=== PATIENT | female | born 1995 | race Hispanic/Latino ===

== ENCOUNTER 2023-05-24 00:21 | Emergency (ER) | payer OTHER, SELFPAY ==
--- OUTSIDE RECORDS SUMMARY | 2023-05-24 00:34 | XMS REPORT | Continuity of Care Document ---
:1995 Author Organization [facility] Address [address] [place] [address] Care Team Providers Name Role Phone MART MCCOLLUM Primary Care Physician Unavailable Miguel Nina Attending Clinician Unavailable MART MCCOLLUM Attending Clinician Unavailable Mart Mccollum MD Attending Clinician KITTY WANG Attending Clinician Unavailable Kitty Wang PA-C Attending Clinician 2, [facility] Attending Clinician Unavailable Martha Johnson MD Attending Clinician Unknown, Attending Attending Clinician Unavailable MARTHA JOHNSON Attending Clinician Unavailable Doctor Unassigned, [place] Attending Clinician Unavailable Torri Sterling RN Attending Clinician Unavailable RUTHY SURESH Attending Clinician Unavailable Ebrahim ELECTRONIC SYSTEMS TECHNICIAN, Rania Attending Clinician Provider, Julio [facility] Attending Clinician Unavailable MINA ROGEL Attending Clinician Unavailable Mina Rogel MD Attending Clinician PELON PRINCE Attending Clinician Unavailable PELON PRINCE Attending Clinician Unavailable Anerisa ELECTRONIC SYSTEMS TECHNICIAN, Marck Attending Clinician MARCK KAUFMAN Attending Clinician Unavailable Only, [facility] Pob2 Test Attending Clinician Unavailable Samantha Tidwell MD Attending Clinician SAMANTHA TIDWELL Attending Clinician Unavailable Buster Mera DO Attending Clinician BUSTER MERA Attending Clinician Unavailable MALIHA REECE Attending Clinician Unavailable Maliha Reece MD Attending Clinician UNKNOWN, ATTENDING Attending Clinician Unavailable Care, [place] [facility] Attending Clinician Unavailable HORTENCIA VILLAVICENCIO Attending Clinician Unavailable Chandni Sebastian MD Attending Clinician CHANDNI SEBASTIAN Attending Clinician Unavailable Brandon Lovett MD Attending Clinician BRANDON LOVETT Attending Clinician Unavailable KANIKA DEGROOT Attending Clinician Unavailable Kanika Degroot MD Attending Clinician JAMILA LOMBARDO Attending Clinician Unavailable Jamila Lombardo MD Attending Clinician Joseph Ortiz MD Attending Clinician KATELYN MIKE Attending Clinician Unavailable Sara Dunaway Attending Clinician [phone] SARA ROSALES Attending Clinician Unavailable Abram'JESSICA PATTEN Attending Clinician Unavailable Lab, Ang - Db Attending Clinician Unavailable Katelyn Jacob Attending Clinician Nurse, Adc Pob Immunization Attending Clinician Unavailable Fink ELECTRONIC SYSTEMS TECHNICIAN, Liliana Attending Clinician JOSEPH ORTIZ Attending Clinician Unavailable JOSEPH ORTIZ Attending Clinician Unavailable Mo Flowers MD Attending Clinician Ruthie HERNANDEZ, Thalia Nuñez Attending Clinician Traci Cook MD, Kim Attending Clinician [phone] Marylu LARIOS, Donnie Attending Clinician DONNIE SALGUERO Attending Clinician Unavailable DONNIE SALGUERO Attending Clinician Unavailable Sia Villa MD Attending Clinician Ultrasound, [facility] Attending Clinician Unavailable Ede LARIOS, Sara Hall Attending Clinician Christine Devries MD Attending Clinician Caprice LAZAR Attending Clinician Unavailable Caprice Marquez Attending Clinician Yuri Richter Attending Clinician Ambrose Graham Attending Clinician Anjel Hood Attending Clinician MALIHA REECE Admitting Clinician Unavailable DONNIE SALGUERO Admitting Clinician Unavailable SIA VILLA Admitting Clinician Unavailable Miguel Nina Admitting Clinician Unavailable BRANDON LOVETT Admitting Clinician Unavailable MARCK KAUFMAN Admitting Clinician Unavailable Maliha Reece MD Admitting Clinician Donnie Salguero MD Admitting Clinician Sia Villa MD Admitting Clinician Caprice LAZAR Admitting Clinician Unavailable Payers Payer Name Policy Type Policy Number Effective Date Expiration Date S ource MEDICAID [place] [id number] 2020 00:00:00 [facility] [id number] 2018 MEDICAID 00:00:00 Problems Condition Condition Condition Status Onset Resolution Last Treating Co mments Source Name Details Category Date Date Treatment Clinician Date Other iron Other iron Disease Active 2021-06 U nivers deficiency deficiency 2-28 it y of anemia anemia 00:00: [place] [address] Medical [place] Primary Primary Disease Active 2021-06 Univers insomnia insomnia 2-28 ity of 00:00: [place] [address] Medical Branch Attention Attention Disease Active 2021-06 Uni vers deficit deficit 2-14 [place] hyper[place] disorder disorder Branch (ADHD), (ADHD), predominan predominan tly tly inattentiv inattentiv e type e type Generalize Generalize Disease Active 2021-06 U nivers d anxiety d anxiety 2-14 ity of disorder disorder 00:00: [place] 00 Medical Branch Chronic Chronic Disease Active 2021-06 Univers fatigue fatigue 2-14 ity of 00:00: [place] 00 Medical Branch 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 2-14 [place] of depression [place] Loss of Loss of Disease Active 2021-06 Univers appetite appetite 2-14 ity of 00:00: [place] 00 Medical Branch Crying Crying Disease Active 2021-06 Univers associated associated 2-14 it y of with mood with mood 00:[place] Grief Grief Disease Active 2021-06 Univers 2-14 ity of 00:00: [place] 00 Medical Branch Acute Acute Disease Active Univers cystitis cystitis 4-27 ity of without without 00:00: [place] hematuria hematuria 00 [facility] Branch Asthma Asthma Disease Active Univers 3-28 ity of 00:00: [place] 00 Medical Branch Allergic Allergic Disease Active Unive rs rhinitis rhinitis 3-28 ity of 00:00: [place] 00 Medical Branch Attention Attention Disease Active Uni vers or or 2-28 it[place] of concentrat concentrat [place] [facility] deficit deficit Branch Anxiety Anxiety Disease Active 2020-06 Univers 2-26 ity of 00:00: [place] 00 Medical Branch Fatty Fatty Disease Active 2020-06 Univers liver liver 2-23 ity of 00:00: [place] 00 Medical Branch Dysphagia, Dysphagia, Disease Active 2020-06 U nivers oropharyng oropharyng 2-10 it y of eal phase eal phase 00:[place] Gastroesop Gastroesop Disease Active 2020-06 U nivers hageal hageal 2-10 ity of reflux reflux 00:00: [place] disease disease 00 Medical without without Branch esophagiti esophagiti s s Constipati Constipati Disease Active 2020-06 U nivers on, on, 2-10 ity of unspecifie unspecifie [place] constipati constipati Br anch on type on type BRBPR BRBPR Disease Active 2020-06 Univers (bright (bright 2-10 it[place] of red blood red [place] rectum) rectum) Branch Obesity Obesity Disease Active 2019-06 Univers (BMI (BMI 0-14 ity of 30-39.9) 30-39.9) 00:00: [place] 00 Medical Branch Dizziness Dizziness Disease Active Uni vers and and 9-23 ity of giddiness giddiness 00:[place] Vertigo Vertigo Disease Active Univers 9-23 ity of 00:00: [place] [facility] Rectal Rectal Disease Active Univers pain pain 4-05 ity of 00:00: [place] [facility] Orthostati Orthostati Disease Active U nivers c c 4-04 ity of hypotensio hypotensio [place] Migraine Migraine Disease Active 2017-06 Unive rs with aura with aura 1-12 ity of and and 00:00: [place] without without 00 Medical status status Branch migrainosu migrainosu s, not s, not intractabl intractabl e e History of History of Disease Active 2017-06 U nivers fibromyalg fibromyalg 1-12 it y of ia ia 00:00: [place] 00 Medical Branch History of History of Disease Active 2017-06 U nivers nephrotic nephrotic 1-12 ity of syndrome syndrome 00:00: [place] 00 Medical Branch VAG VAG Diagnosis Active 2017-10-27 Mem oria BLEEDING BLEEDING -11 21:40:00 l Active 00:00: Danyel 10/27/2017 00 [facility] VAGINAL VAGINAL Diagnosis Active 2016-12-29 Memoria BLEEDING BLEEDING - 08:55:00 l Active 00:00: Danyel 12/18/[address] [place] [address] History of History of Disease Active U nivers anxiety anxiety 9-12 ity of 00:00: [place] 00 Medical Branch PANIC PANIC Diagnosis Active 2009-062018-04-28 Mem oria ATTACK ATTACK - 04:58:00 l Active 00:00: Danyel 04/26/[address] [place] [address] Danyel Fibromyalg Fibromyal Problem 2018-11-13 Memoria ia perla 14:53:07 l 11/13/2018 Wilfred mckinney [facility] Fibromyalg Fibromyal Problem Active 2018-11-13 Memoria ia perla 14:53:07 l (disorder) (disorder) He rmann Active Problem 11/13/2018 [facility] History of Past Illness Condition Condition Condition Status Onset Resolution Last Treating Co mments Source Name Details Category Date Date Treatment Clinician Date Acute Acute Problem 2017-062018-11-13 2018-11-13 M emoria upper upper 06-26 14:53:07 14:53:07 l respirator respirator 06:00: He neha y y 00 infection, infection, unspecifie unspecifie d d 04/26/2018 11/13/2018 [facility] Generalize Generaliz Problem 2017-062018-11-13 2018-11-13 Memoria d anxiety ed anxiety 06-26 14:53:07 14:53:07 l disorder disorder 06:00: Wilfred mckinney 04/26/2018 00 11/13/2018 [facility] Other Other Problem 2017-062018-11-13 2018-11-13 M emoria chest pain chest pain 06-26 14:53:07 14:53:07 l 06:00: Wilfred mckinney 8 00 11/13/2018 [facility] Abnormal Abnormal Problem 2017-10-30 2017-10-30 Memoria uterine uterine - 15:36:51 15:36:51 l and and 05:00: [place] vaginal vaginal 00 bleeding, bleeding, unspecifie unspecifie d d 10/27/2017 10/30/2017 [facility] Other Other Problem 2016-12-21 2016-12-21 M emoria specified specified 12-18 00:42:13 00:42:13 l abnormal abnormal 05:00: Wilfred n uterine uterine 00 and and vaginal vaginal bleeding bleeding 12/18/2016 7 [facility] Pelvic and Pelvic Problem 2016-12-21 2016-12-21 Memoria perineal and 12-18 00:42:13 00:42:13 l pain perineal 05:00: [place] pain 00 12/18/2016 12/21/2016 [facility] Allergies, Adverse Reactions, Alerts Allergy Allergy Status Severity Reaction(s) Onset Inactive Treating Comm ents Source Name Type Date Date Clinician JULIENNE OTTO Active [place] HIVES 2022-06 [facility] 07[facility]18 [place] [facility] No Known DA Active U 2022-06 [facility] Allergie 07-17 [place] 00:[facility] No Known No Known Active Memori a Medicati Medicati l on on [place] Allergie Allergie s s NO KNOWN Drug Active Univers ALLERGIE Class ity of S [facility] Social History Social Habit Start Date Stop Date Quantity Comments Source ASSERTION [facility] Sexual orientation [facility] Alcohol Comment 2022-11-30 2022-11-30 social Universit y of 00:00:00 00:00:00 [facility] Branch Exposure to 2022-08-04 2022-08-14 Not sure [facility] SARS-CoV-2 (event) 00:00:00 10:48:00 [facility] History of Social 2022-06-01 2022-06-01 Univers ity of function 00:00:00 00:00:00 [place] [facility] History SDOH 2020-04-17 2020-04-17 5 University o f Financial 00:00:00 00:00:00 [place] [facility] History SDOH Food 2020-04-17 2020-04-17 1 Univers ity of Worry 00:00:00 00:00:00 [place] [facility] History SDOH Food 2020-04-17 2020-04-17 1 Univers ity of Scarcity 00:00:00 00:00:00 [place] [facility] History SDOH 2020-04-17 2020-04-17 2 University o f Transport Med 00:00:00 00:00:00 [place] [facility] History SDOH 2020-04-17 2020-04-17 2 University o f Transport Non-Med 00:00:00 00:00:00 [facility] edical Branch Alcohol intake 2020-01-24 2020-01-24 0 /d University of 00:00:00 00:00:00 [facility] Tobacco use and 2019-12-03 2019-12-03 Smokeless Universit y of exposure 00:00:00 00:00:00 tobacco non-user [facility] [place] dical Branch Sex [birth year] At [birth year] Y[address] [place] 00:00:00 00:00:00 [facility] Smoking Status Start Date Stop Date Source Social History [facility] [place] [facility] Medications Ordered Filled Start Stop Current Ordering Indication Dosage Frequency Signature Comments Components Source Medication Medication Date Date Medication? Clinician (SIG) Name Name metroNIDAZO Yes [id number] 500mg Take 1 Univers LE 500 mg 6-26 tablet by ity o f tablet 00:00: mouth [place] 00 every 12 Medical (twelve) Branch hours. metroNIDAZO Yes [id number] 500mg Take 1 Univers LE 500 mg 6-26 tablet by ity o f tablet 00:00: mouth [place] 00 every 12 Medical (twelve) Branch hours. doxepin 10 Yes [id number] 10mg Take 1 Un norma mg capsule 4-24 capsule by ity of 00:00: mouth at [place] [address] bedtime. Medical Branch doxepin 10 0 Yes [id number] 10mg Take 1 Un norma mg capsule 4-24 capsule by ity of 00:00: mouth at [place] [address] bedtime. Medical Branch doxepin 10 0 Yes [id number] 10mg Take 1 Un norma mg capsule 4-24 capsule by ity of 00:00: mouth at [place] [address] bedtime. Medical Branch doxepin 10 0 Yes [id number] 10mg Take 1 Un norma mg capsule 4-24 capsule by ity of 00:00: mouth at [place] [address] bedtime. Medical Branch doxepin 10 0 Yes [id number] 10mg Take 1 Un norma mg capsule 4-24 capsule by ity of 00:00: mouth at [place] [address] bedtime. Medical Branch doxepin 10 0 Yes [id number] 10mg Take 1 Un norma mg capsule 4-24 capsule by ity of 00:00: mouth at [place] [address] bedtime. Medical Branch doxepin 10 0 Yes [id number] 10mg Take 1 Un norma mg capsule 3-12 capsule by ity of 00:00: mouth at [place] [address] bedtime. Medical Branch doxepin 10 0 2022- No [id number] 10mg Take 1 U nivers mg capsule 3-12 04-21 capsule by it y of 00:00: 00:00 mouth at [place] 00 :00 bedtime. Medical Branch benzonatate 2023-0 Yes [id number] 200mg Take 2 Univers 100 mg 2-26 capsules ity of capsule 00:00: by mouth [place] 00 every 8 Medical (eight) Branch hours as needed for Cough. maalox/diph 2022-0 Yes [id number] 5mL Take 5 mL Univers enhydrAMINE 2-26 by mouth 3 it y of :lidocaine2 00:00: (three) [place] as % viscous 00 times Medical 1:1:1 Susp daily as Branc h suspension needed (gargle and spit). ibuprofen 2022-0 Yes [id number] 600mg Take 1 Univers 600 mg 2-26 tablet by ity of tablet 00:00: mouth [place] 00 every 6 Medical (six) Branch hours as needed for Pain (scale 4-6) or Pain (scale 1-3). benzonatate 2022-0 Yes [id number] 200mg Take 2 Univers 100 mg 2-26 capsules ity of capsule 00:00: by mouth [place] 00 every 8 Medical (eight) Branch hours as needed for Cough. maalox/diph 2022-0 Yes [id number] 5mL Take 5 mL Univers enhydrAMINE 2-26 by mouth 3 it y of :lidocaine2 00:00: (three) [place] as % viscous 00 times Medical 1:1:1 Susp daily as Branc h suspension needed (gargle and spit). ibuprofen 2022-0 Yes [id number] 600mg Take 1 Univers 600 mg 2-26 tablet by ity of tablet 00:00: mouth [place] 00 every 6 Medical (six) Branch hours as needed for Pain (scale 4-6) or Pain (scale 1-3). benzonatate 2022-0 Yes [id number] 200mg Take 2 Univers 100 mg 2-26 capsules ity of capsule 00:00: by mouth [place] 00 every 8 Medical (eight) Branch hours as needed for Cough. maalox/diph 2023-0 Yes [id number] 5mL Take 5 mL Univers enhydrAMINE 2-26 by mouth 3 it y of :lidocaine2 00:00: (three) [place] as % viscous 00 times Medical 1:1:1 Susp daily as Branc h suspension needed (gargle and spit). ibuprofen 2022-0 Yes [id number] 600mg Take 1 Univers 600 mg 2-26 tablet by ity of tablet 00:00: mouth [place] 00 every 6 Medical (six) Branch hours as needed for Pain (scale 4-6) or Pain (scale 1-3). benzonatate 2023-0 Yes [id number] 200mg Take 2 Univers 100 mg 2-26 capsules ity of capsule 00:00: by mouth [place] 00 every 8 Medical (eight) Branch hours as needed for Cough. maalox/diph 2023-0 Yes [id number] 5mL Take 5 mL Univers enhydrAMINE 2-26 by mouth 3 it y of :lidocaine2 00:00: (three) [place] as % viscous 00 times Medical 1:1:1 Susp daily as Branc h suspension needed (gargle and spit). ibuprofen 2023-0 Yes [id number] 600mg Take 1 Univers 600 mg 2-26 tablet by ity of tablet 00:00: mouth [place] 00 every 6 Medical (six) Branch hours as needed for Pain (scale 4-6) or Pain (scale 1-3). benzonatate 2023-0 Yes [id number] 200mg Take 2 Univers 100 mg 2-26 capsules ity of capsule 00:00: by mouth [place] 00 every 8 Medical (eight) Branch hours as needed for Cough. maalox/diph 2023-0 Yes [id number] 5mL Take 5 mL Univers enhydrAMINE 2-26 by mouth 3 it y of :lidocaine2 00:00: (three) [place] as % viscous 00 times Medical 1:1:1 Susp daily as Branc h suspension needed (gargle and spit). ibuprofen 2023-0 Yes [id number] 600mg Take 1 Univers 600 mg 2-26 tablet by ity of tablet 00:00: mouth [place] 00 every 6 Medical (six) Branch hours as needed for Pain (scale 4-6) or Pain (scale 1-3). benzonatate 2023-0 Yes [id number] 200mg Take 2 Univers 100 mg 2-26 capsules ity of capsule 00:00: by mouth [place] 00 every 8 Medical (eight) Branch hours as needed for Cough. maalox/diph 2023-0 Yes [id number] 5mL Take 5 mL Univers enhydrAMINE 2-26 by mouth 3 it y of :lidocaine2 00:00: (three) [place] as % viscous 00 times Medical 1:1:1 Susp daily as Branc h suspension needed (gargle and spit). ibuprofen 2023-0 Yes [id number] 600mg Take 1 Univers 600 mg 2-26 tablet by ity of tablet 00:00: mouth [place] 00 every 6 Medical (six) Branch hours as needed for Pain (scale 4-6) or Pain (scale 1-3). benzonatate 0 Yes [id number] 200mg Take 2 Univers 100 mg 2-26 capsules ity of capsule 00:00: by mouth [place] 00 every 8 Medical (eight) Branch hours as needed for Cough. maalox/diph 2022-0 Yes [id number] 5mL Take 5 mL Univers enhydrAMINE 2-26 by mouth 3 it y of :lidocaine2 00:00: (three) [place] as % viscous 00 times Medical 1:1:1 Susp daily as Branc h suspension needed (gargle and spit). ibuprofen 0 Yes [id number] 600mg Take 1 Univers 600 mg 2-26 tablet by ity of tablet 00:00: mouth [place] 00 every 6 Medical (six) Branch hours as needed for Pain (scale 4-6) or Pain (scale 1-3). benzonatate 0 Yes [id number] 200mg Take 2 Univers 100 mg 2-26 capsules ity of capsule 00:00: by mouth [place] 00 every 8 Medical (eight) Branch hours as needed for Cough. maalox/diph 0 Yes [id number] 5mL Take 5 mL Univers enhydrAMINE 2-26 by mouth 3 it y of :lidocaine2 00:00: (three) [place] as % viscous 00 times Medical 1:1:1 Susp daily as Branc h suspension needed (gargle and spit). ibuprofen 0 Yes [id number] 600mg Take 1 Univers 600 mg 2-26 tablet by ity of tablet 00:00: mouth [place] 00 every 6 Medical (six) Branch hours as needed for Pain (scale 4-6) or Pain (scale 1-3). levalbutero 2021-06 Yes [id number] 1{puff} Inhale 1-2 Univers l (XOPENEX 2-28 Puffs ity of HFA) 45 00:00: every 4 [place] mcg/actuati 00 (four) Medica l on inhaler hours as Branc h needed for Wheezing or Shortness of Breath. Ferrous 2021-06 Yes [id number] 1{tbl} Take 1 Un norma Fumarate 2-28 tablet by ity of 324 mg (106 00:00: mouth 2 [place] as mg iron) 00 (two) Medical Tab times Branch daily with meals. doxepin 10 2021-06 Yes [id number] 10mg Take 1 Un norma mg capsule 2-28 capsule by ity of 00:00: mouth at [place] [address] bedtime. Medical Branch buPROPion 2021-06 Yes [id number] 75mg Take 1 U nivers 75 mg 2-28 tablet by ity of tablet 00:00: mouth in [place] 00 the Medical morning Branch and 1 tablet in the evening. montelukast 2021-06 Yes [id number] 10mg Take 1 Univers 10 mg 2-28 tablet by ity of tablet 00:00: mouth at [place] [address] bedtime. Medical Branch levalbutero 2021-06 Yes [id number] 1{puff} Inhale 1-2 Univers l (XOPENEX 2-28 Puffs ity of HFA) 45 00:00: every 4 [place] mcg/actuati 00 (four) Medica l on inhaler hours as Branc h needed for Wheezing or Shortness of Breath. Ferrous 2021-06 Yes [id number] 1{tbl} Take 1 Un norma Fumarate 2-28 tablet by ity of 324 mg (106 00:00: mouth 2 [place] as mg iron) 00 (two) Medical Tab times Branch daily with meals. doxepin 10 2021-06 Yes [id number] 10mg Take 1 Un norma mg capsule 2-28 capsule by ity of 00:00: mouth at [place] [address] bedtime. Medical Branch buPROPion 2021-06 Yes [id number] 75mg Take 1 U nivers 75 mg 2-28 tablet by ity of tablet 00:00: mouth in [place] 00 the Medical morning Branch and 1 tablet in the evening. montelukast 2021-06 Yes [id number] 10mg Take 1 Univers 10 mg 2-28 tablet by ity of tablet 00:00: mouth at [place] 00 bedtime. Medical Branch levalbutero 2021-06 Yes [id number] 1{puff} Inhale 1-2 Univers l (XOPENEX 2-28 Puffs ity of HFA) 45 00:00: every 4 [place] mcg/actuati 00 (four) Medica l on inhaler hours as Branc h needed for Wheezing or Shortness of Breath. Ferrous 2021-06 Yes [id number] 1{tbl} Take 1 Un norma Fumarate 2-28 tablet by ity of 324 mg (106 00:00: mouth 2 [place] as mg iron) 00 (two) Medical Tab times Branch daily with meals. doxepin 10 2021-06 Yes [id number] 10mg Take 1 Un norma mg capsule 2-28 capsule by ity of 00:00: mouth at [place] 00 bedtime. Medical Branch buPROPion 2021-06 Yes [id number] 75mg Take 1 U nivers 75 mg 2-28 tablet by ity of tablet 00:00: mouth in [place] 00 the Medical morning Branch and 1 tablet in the evening. montelukast 2021-06 Yes [id number] 10mg Take 1 Univers 10 mg 2-28 tablet by ity of tablet 00:00: mouth at [place] 00 bedtime. Medical Branch levalbutero 2021-06 Yes [id number] 1{puff} Inhale 1-2 Univers l (XOPENEX 2-28 Puffs ity of HFA) 45 00:00: every 4 [place] mcg/actuati 00 (four) Medica l on inhaler hours as Branc h needed for Wheezing or Shortness of Breath. Ferrous 2021-06 Yes [id number] 1{tbl} Take 1 Un norma Fumarate 2-28 tablet by ity of 324 mg (106 00:00: mouth 2 [place] as mg iron) 00 (two) Medical Tab times Branch daily with meals. doxepin 10 2021-06 Yes [id number] 10mg Take 1 Un norma mg capsule 2-28 capsule by ity of 00:00: mouth at [place] 00 bedtime. Medical Branch buPROPion 2021-06 Yes [id number] 75mg Take 1 U nivers 75 mg 2-28 tablet by ity of tablet 00:00: mouth in [place] 00 the Medical morning Branch and 1 tablet in the evening. montelukast 2021-06 Yes [id number] 10mg Take 1 Univers 10 mg 2-28 tablet by ity of tablet 00:00: mouth at [place] 00 bedtime. Medical Branch levalbutero 2021-06 Yes [id number] 1{puff} Inhale 1-2 Univers l (XOPENEX 2-28 Puffs ity of HFA) 45 00:00: every 4 [place] mcg/actuati 00 (four) Medica l on inhaler hours as Branc h needed for Wheezing or Shortness of Breath. Ferrous 2021-06 Yes [id number] 1{tbl} Take 1 Un norma Fumarate 2-28 tablet by ity of 324 mg (106 00:00: mouth 2 [place] as mg iron) 00 (two) Medical Tab times Branch daily with meals. doxepin 10 2021-06 Yes [id number] 10mg Take 1 Un norma mg capsule 2-28 capsule by ity of 00:00: mouth at [place] [address] bedtime. Medical Branch buPROPion 2021-06 Yes [id number] 75mg Take 1 U nivers 75 mg 2-28 tablet by ity of tablet 00:00: mouth in [place] 00 the Medical morning Branch and 1 tablet in the evening. montelukast 2021-06 Yes [id number] 10mg Take 1 Univers 10 mg 2-28 tablet by ity of tablet 00:00: mouth at [place] 00 bedtime. Medical Branch levalbutero 2021-06 Yes [id number] 1{puff} Inhale 1-2 Univers l (XOPENEX 2-28 Puffs ity of HFA) 45 00:00: every 4 [place] mcg/actuati 00 (four) Medica l on inhaler hours as Branc h needed for Wheezing or Shortness of Breath. Ferrous 2021-06 Yes [id number] 1{tbl} Take 1 Un norma Fumarate 2-28 tablet by ity of 324 mg (106 00:00: mouth 2 [place] as mg iron) 00 (two) Medical Tab times Branch daily with meals. doxepin 10 2021-06 Yes [id number] 10mg Take 1 Un norma mg capsule 2-28 capsule by ity of 00:00: mouth at [place] [address] bedtime. Medical Branch buPROPion 2021-06 Yes [id number] 75mg Take 1 U nivers 75 mg 2-28 tablet by ity of tablet 00:00: mouth in [place] 00 the Medical morning Branch and 1 tablet in the evening. montelukast 2021-06 Yes [id number] 10mg Take 1 Univers 10 mg 2-28 tablet by ity of tablet 00:00: mouth at [place] 00 bedtime. Medical Branch levalbutero 2021-06 Yes [id number] 1{puff} Inhale 1-2 Univers l (XOPENEX 2-28 Puffs ity of HFA) 45 00:00: every 4 [place] mcg/actuati 00 (four) Medica l on inhaler hours as Branc h needed for Wheezing or Shortness of Breath. Ferrous 2021-06 Yes [id number] 1{tbl} Take 1 Un norma Fumarate 2-28 tablet by ity of 324 mg (106 00:00: mouth 2 [place] mg iron) 00 (two) Medical Tab times Branch daily with meals. doxepin 10 2021-06 Yes [id number] 10mg Take 1 Un norma mg capsule 2-28 capsule by ity of 00:00: mouth at [place] 00 bedtime. Medical Branch buPROPion 2021-06 Yes [id number] 75mg Take 1 U nivers 75 mg 2-28 tablet by ity of tablet 00:00: mouth in [place] 00 the Medical morning Branch and 1 tablet in the evening. montelukast 2021-06 Yes [id number] 10mg Take 1 [facility] 10 mg 2-28 tablet by ity of tablet 00:00: mouth at [place] [address] bedtime. Medical Branch levalbutero 2021-06 Yes [id number] 1{puff} Inhale 1-2 Univers l (XOPENEX 2-28 Puffs ity of HFA) 45 00:00: every 4 [place] mcg/actuati 00 (four) Medica l on inhaler hours as Branc h needed for Wheezing or Shortness of Breath. Ferrous 2021-06 Yes [id number] 1{tbl} Take 1 Un norma Fumarate 2-28 tablet by ity of 324 mg (106 00:00: mouth 2 [place] mg iron) 00 (two) Medical Tab times Branch daily with meals. doxepin 10 2021-06 Yes [id number] 10mg Take 1 Un norm[facility] mg capsule 2-28 capsule by ity of 00:00: mouth at [place] 00 bedtime. Medical Branch buPROPion 2021-06 Yes [id number] 75mg Take 1 U nivers 75 mg 2-28 tablet by ity of tablet 00:00: mouth in [place] 00 the Medical morning Branch and 1 tablet in the evening. montelukast 2021-06 Yes [id number] 10mg Take 1 [facility] 10 mg 2-28 tablet by ity of tablet 00:00: mouth at [place] 00 [facility]. [facility] [id number] 1{puff} Inhale 1-2 Univers l (XOPENEX 2-28 Puffs ity of HFA) 45 00:00: every 4 [place] mcg/actuati 00 (four) Medica l on inhaler hours as Branc h needed for Wheezing or Shortness of Breath. Ferrous 2021-06 Yes [id number] 1{tbl} Take 1 Un norma Fumarate 2-28 tablet by ity of 324 mg (106 00:00: mouth 2 [place] mg iron) 00 (two) Medical Tab times Branch daily with meals. buPROPion 2021-06 Yes [id number] 75mg Take 1 U nivers 75 mg 2-28 tablet by ity of tablet 00:00: mouth in [place] 00 the Medical morning Branch and 1 tablet in the evening. montelukast 2021-06 Yes [id number] 10mg Take 1 [facility] 10 mg 2-28 tablet by ity of tablet 00:00: mouth at [place] 00 bedtime. [facility]06 Yes [id number] 1{puff} Inhale 1-2 Univers l (XOPENEX 2-28 Puffs ity of HFA) 45 00:00: every 4 [place] mcg/actuati 00 (four) Medica l on inhaler hours as Branc h needed for Wheezing or Shortness of Breath. Ferrous 2021-06 Yes [id number] 1{tbl} Take 1 Un norma Fumarate 2-28 tablet by ity of 324 mg (106 00:00: mouth 2 [place] mg iron) 00 (two) Medical Tab times Branch daily with meals. buPROPion 2021-06 Yes [id number] 75mg Take 1 U nivers 75 mg 2-28 tablet by ity of tablet 00:00: mouth in [place] 00 the Medical morning Branch and 1 tablet in the evening. montelukast 2021-06 Yes [id number] 10mg Take 1 [facility] 10 mg 2-28 tablet by ity of tablet 00:00: mouth at [place] 00 bedtime. Medical Branch levwibutero 2021-06 Yes [id number] 1{puff} Inhale 1-2 Univers l (XOPENEX 2-28 Puffs ity of HFA) 45 00:00: every 4 [place] mcg/actuati 00 (four) Medica l on inhaler hours as Branc h needed for Wheezing or Shortness of Breath. Ferrous 2021-06 Yes [id number] 1{tbl} Take 1 [facility] norm[facility] Fumarate 2-28 tablet by ity of 324 mg (106 00:00: mouth 2 [place] mg iron) 00 (two) Medical Tab times Branch daily with meals. buPROPion 2021-06 Yes [id number] 75mg Take 1 U nivers 75 mg 2-28 tablet by ity of tablet 00:00: mouth in [place] 00 the Medical morning Branch and 1 tablet in the evening. montelukast 2021-06 Yes [id number] 10mg Take 1 [facility] 10 mg 2-28 tablet by ity of tablet 00:00: mouth at [place] 00 bedtime. Medical Branch levalbutero 2021-06 Yes [id number] 1{puff} Inhale 1-2 Univers l (XOPENEX 2-28 Puffs ity of HFA) 45 00:00: every 4 [place] mcg/actuati 00 (four) Medica l on inhaler hours as Branc h needed for Wheezing or Shortness of Breath. Ferrous 2021-06 Yes [id number] 1{tbl} Take 1 Un norm[facility] Fumarate 2-28 tablet by ity of 324 mg (106 00:00: mouth 2 [place] mg iron) 00 (two) Medical Tab times Branch daily with meals. buPROPion 2021-06 Yes [id number] 75mg Take 1 U nivers 75 mg 2-28 tablet by ity of tablet 00:00: mouth in [place] 00 the Medical morning Branch and 1 tablet in the evening. montelukast 2021-06 Yes [id number] 10mg Take 1 [facility] 10 mg 2-28 tablet by ity of tablet 00:00: mouth at [place] 00 bedtime. Medical Branch levalbutero 2021-06 Yes [id number] 1{puff} Inhale 1-2 Univers l (XOPENEX 2-28 Puffs ity of HFA) 45 00:00: every 4 [place] mcg/actuati 00 (four) Medica l on inhaler hours as Branc h needed for Wheezing or Shortness of Breath. Ferrous 2021-06 Yes [id number] 1{tbl} Take 1 [facility] Fumarate 2-28 tablet by ity of 324 mg (106 00:00: mouth 2 [place] mg iron) 00 (two) Medical Tab times Branch daily with meals. buPROPion 2021-06 Yes [id number] 75mg Take 1 U nivers 75 mg 2-28 tablet by ity of tablet 00:00: mouth in [place] 00 the Medical morning Branch and 1 tablet in the evening. montelukast 2021-06 Yes [id number] 10mg Take 1 [facility] 10 mg 2-28 tablet by ity of tablet 00:00: mouth at [place] 00 bedtime. Medical Branch levalbutero 2021-06 Yes [id number] 1{puff} Inhale 1-2 Univers l (XOPENEX 2-28 Puffs ity of HFA) 45 00:00: every 4 [place] mcg/actuati 00 (four) Medica l on inhaler hours as Branc h needed for Wheezing or Shortness of Breath. Ferrous 2021-06 Yes [id number] 1{tbl} Take 1 [facility] norm[facility] Fumarate 2-28 tablet by ity of 324 mg (106 00:00: mouth 2 [place] mg iron) 00 (two) Medical Tab times Branch daily with meals. buPROPion 2021-06 Yes [id number] 75mg Take 1 U nivers 75 mg 2-28 tablet by ity of tablet 00:00: mouth in [place] 00 the Medical morning Branch and 1 tablet in the evening. montelukast 2021-06 Yes [id number] 10mg Take 1 [facility] 10 mg 2-28 tablet by ity of tablet 00:00: mouth at [place] 00 bedtime. Medical Branch levalbutero 2021-06 Yes [id number] 1{puff} Inhale 1-2 Univers l (XOPENEX 2-28 Puffs ity of HFA) 45 00:00: every 4 [place] mcg/actuati 00 (four) Medica l on inhaler hours as Branc h needed for Wheezing or Shortness of Breath. Ferrous 2021-06 Yes [id number] 1{tbl} Take 1 [facility] Fumarate 2-28 tablet by ity of 324 mg (106 00:00: mouth 2 [place] mg iron) 00 (two) Medical Tab times Branch daily with meals. buPROPion 2021-06 Yes [id number] 75mg Take 1 U nivers 75 mg 2-28 tablet by ity of tablet 00:00: mouth in [place] 00 the Medical morning Branch and 1 tablet in the evening. montelukast 2021-06 Yes [id number] 10mg Take 1 [facility] 10 mg 2-28 tablet by ity of tablet 00:00: mouth at [place] [address] bedtime. Medical Branch levalbutero 2021-06 Yes [id number] 1{puff} Inhale 1-2 Univers l (XOPENEX 2-28 Puffs ity of HFA) 45 00:00: every 4 [place] mcg/actuati 00 (four) Medica l on inhaler hours as Branc h needed for Wheezing or Shortness of Breath. Ferrous 2021-06 Yes [id number] 1{tbl} Take 1 [facility] Fumarate 2-28 tablet by ity of 324 mg (106 00:00: mouth 2 [place] mg iron) 00 (two) Medical Tab times Branch daily with meals. buPROPion 2021-06 Yes [id number] 75mg Take 1 U nivers 75 mg 2-28 tablet by ity of tablet 00:00: mouth in [place] 00 the Medical morning Branch and 1 tablet in the evening. montelukast 2021-06 Yes [id number] 10mg Take 1 [facility] 10 mg 2-28 tablet by ity of tablet 00:00: mouth at [place] [address] bedtime. Medical Branch doxepin 10 2021-06- No [id number] 10mg Take 1 U nivers mg capsule 2-28 03-10 capsule by it y of 00:00: 00:00 mouth at [place] 00 :00 bedtime. Medical Branch traZODone 2021-06 Yes [id number] 50mg Take 1 Uni vers 50 mg 2-14 tablet by ity of tablet 00:00: mouth at [place] [address] bedtime. Medical Branch traZODone 2021-06 Yes [id number] 50mg Take 1 [facility] vers 50 mg 2-14 tablet by ity of tablet 00:00: mouth at [place] [address] bedtime. Medical Branch traZODone 2021-06 Yes [id number] 50mg Take 1 [facility] vers 50 mg 2-14 tablet by ity of tablet 00:00: mouth at [place] [address] bedtime. Medical Branch traZODone 2021-06 Yes [id number] 50mg Take 1 [facility] vers 50 mg 2-14 tablet by ity of tablet 00:00: mouth at [place] [address] bedtime. Medical Branch traZODone 2021-06 Yes [id number] 50mg Take 1 [facility] vers 50 mg 2-14 tablet by ity of tablet 00:00: mouth at [place] [address] bedtime. Medical Branch traZODone 2021-06 Yes [id number] 50mg Take 1 [facility] vers 50 mg 2-14 tablet by ity of tablet 00:00: mouth at [place] [address] bedtime. Medical Branch traZODone 2021-06 Yes [id number] 50mg Take 1 [facility] vers 50 mg 2-14 tablet by ity of tablet 00:00: mouth at [place] [address] bedtime. Medical Branch traZODone 2021-06 Yes [id number] 50mg Take 1 [facility] vers 50 mg 2-14 tablet by ity of tablet 00:00: mouth at [place] [address] bedtime. Medical Branch traZODone 2021-06 Yes [id number] 50mg Take 1 [facility] vers 50 mg 2-14 tablet by ity of tablet 00:00: mouth at [place] [address] bedtime. Medical Branch traZODone 2021-06 Yes [id number] 50mg Take 1 [facility] vers 50 mg 2-14 tablet by ity of tablet 00:00: mouth at [place] [address] bedtime. Medical Branch traZODone 2021-06 Yes [id number] 50mg Take 1 [facility] vers 50 mg 2-14 tablet by ity of tablet 00:00: mouth at [place] [address] bedtime. Medical Branch traZODone 2021- Yes [id number] 50mg Take 1 [facility] vers 50 mg 2-14 tablet by ity of tablet 00:00: mouth at [place] [address] bedtime. Medical Branch traZODone 2021-06 Yes [id number] 50mg Take 1 [facility] vers 50 mg 2-14 tablet by ity of tablet 00:00: mouth at [place] [address] bedtime. Medical Branch traZODone 2021-06 Yes [id number] 50mg Take 1 [facility] vers 50 mg 2-14 tablet by ity of tablet 00:00: mouth at [place] [address] bedtime. Medical Branch traZODone 2021- Yes [id number] 50mg Take 1 [facility] vers 50 mg 2-14 tablet by ity of tablet 00:00: mouth at [place] [address] bedtime. Medical Branch traZODone 2021-06 Yes [id number] 50mg Take 1 [facility] vers 50 mg 2-14 tablet by ity of tablet 00:00: mouth at [place] [address] bedtime. Medical Branch traZODone 2021-06 Yes [id number] 50mg Take 1 [facility] vers 50 mg 2-14 tablet by ity of tablet 00:00: mouth at [place] [address] bedtime. Medical Branch traZODone 2021-06 Yes [id number] 50mg Take 1 [facility] vers 50 mg 2-14 tablet by ity of tablet 00:00: mouth at [place] [address] bedtime. Medical Branch traZODone 2021-06 Yes [id number] 50mg Take 1 [facility] vers 50 mg 2-14 tablet by ity of tablet 00:00: mouth at [place] [address] bedtime. Medical Branch NaCl 0.9% 2021- No 1000mL at 999 Uni vers (NS) bolus 02-28 09-12 mL/hr, ity of infusion 21:45: 21:58 1,000 mL, [place] as 1,000 mL 00 :00 IV Medical Infusion, Branch ONCE, 1 dose, On Mon02/28/22 at 1645, STAT midazolam Yes 1mg 1 mg, IV Univ ers (VERSED) 02-28 Push, ity of injection 1 20:30: Q20MIN [place] mg 38 PRN, 2 Medical doses, Branch Starting on Mon02/28/22 at 1530, Until Discontinu ed, Routine, Anxiety, Agitation sulfamethox 2021- No [id number] 1{tbl} Take 1 [facility] azole-trime - 05-01 tablet by it y of thoprim 00:00: 04:59 mouth 2 [place] (BACTRIM 00 :00 (two) Medical DS) 800-160 times Branch mg per daily for tablet 3 days. phenazopyri 2021- No [id number] 200mg Take 1 [facility] dine 4-27 04-30 tablet by ity of (PYRIDIUM) 00:00: 04:59 mouth 3 [place] 200 mg 00 :00 (three) Medical tablet times Branch daily after meals for 2 days. montelukast Yes [id number] 10mg Take 1 [facility] 10 mg 3-28 tablet by ity of tablet 00:00: mouth at [place] 00 bedtime. Medical Branch levalbutero Yes [id number] 1{puff} Inhale 1-2 Univers l (XOPENEX 3-28 Puffs ity of HFA) 45 00:00: every 4 [place] mcg/actuati 00 (four) Medica l on inhaler hours as Branc h needed for Wheezing or Shortness of Breath. montelukast Yes [id number] 10mg Take 1 [facility] 10 mg 3-28 tablet by ity of tablet 00:00: mouth at [place] 00 bedtime. Medical Branch levalbutero Yes [id number] 1{puff} Inhale 1-2 [facility] l (XOPENEX 3-28 Puffs ity of HFA) 45 00:00: every 4 [place] mcg/actuati 00 (four) Medica l on inhaler hours as Branc h needed for Wheezing or Shortness of Breath. montelukast Yes [id number] 10mg Take 1 [facility] 10 mg 3-28 tablet by ity of tablet 00:00: mouth at [place] 00 bedtime. Medical Branch levalbutero Yes [id number] 1{puff} Inhale 1-2 [facility] l (XOPENEX 3-28 Puffs ity of HFA) 45 00:00: every 4 [place] mcg/actuati 00 (four) Medica l on inhaler hours as Branc h needed for Wheezing or Shortness of Breath. montelukast Yes [id number] 10mg Take 1 [facility] 10 mg 3-28 tablet by ity of tablet 00:00: mouth at [place] 00 bedtime. Medical Branch levalbutero Yes [id number] 1{puff} Inhale 1-2 Univers l (XOPENEX 3-28 Puffs ity of HFA) 45 00:00: every 4 [place] mcg/actuati 00 (four) Medica l on inhaler hours as Branc h needed for Wheezing or Shortness of Breath. montelukast Yes [id number] 10mg Take 1 [facility] 10 mg 3-28 tablet by ity of tablet 00:00: mouth at [place] 00 bedtime. Medical Branch levalbutero Yes [id number] 1{puff} Inhale 1-2 [facility] l (XOPENEX 3-28 Puffs ity of HFA) 45 00:00: every 4 [place] mcg/actuati 00 (four) Medica l on inhaler hours as Branc h needed for Wheezing or Shortness of Breath. montelukast Yes [id number] 10mg Take 1 [facility] 10 mg 3-28 tablet by ity of tablet 00:00: mouth at [place] 00 bedtime. Medical Branch levalbutero Yes [id number] 1{puff} Inhale 1-2 Univers l (XOPENEX 3-28 Puffs ity of HFA) 45 00:00: every 4 [place] mcg/actuati 00 (four) Medica l on inhaler hours as Branc h needed for Wheezing or Shortness of Breath. montelukast Yes [id number] 10mg Take 1 [facility] 10 mg 3-28 tablet by ity of tablet 00:00: mouth at [place] 00 bedtime. Medical Branch levalbutero Yes [id number] 1{puff} Inhale 1-2 Univers l (XOPENEX 3-28 Puffs ity of HFA) 45 00:00: every 4 [place] mcg/actuati 00 (four) Medica l on inhaler hours as Branc h needed for Wheezing or Shortness of Breath. montelukast Yes [id number] 10mg Take 1 [facility] 10 mg 3-28 tablet by ity of tablet 00:00: mouth at [place] 00 bedtime. Medical Branch levalbutero Yes [id number] 1{puff} Inhale 1-2 [facility] l (XOPENEX 3-28 Puffs ity of HFA) 45 00:00: every 4 [place] mcg/actuati 00 (four) Medica l on inhaler hours as Branc h needed for Wheezing or Shortness of Breath. montelukast Yes [id number] 10mg Take 1 [facility] 10 mg 3-28 tablet by ity of tablet 00:00: mouth at [place] 00 bedtime. Medical Branch levalbutero Yes [id number] 1{puff} Inhale 1-2 Univers l (XOPENEX 3-28 Puffs ity of HFA) 45 00:00: every 4 [place] mcg/actuati 00 (four) Medica l on inhaler hours as Branc h needed for Wheezing or Shortness of Breath. montelukast Yes [id number] 10mg Take 1 [facility] 10 mg 3-28 tablet by ity of tablet 00:00: mouth at [place] 00 bedtime. Medical Branch levalbutero Yes [id number] 1{puff} Inhale 1-2 Univers l (XOPENEX 3-28 Puffs ity of HFA) 45 00:00: every 4 [place] mcg/actuati 00 (four) Medica l on inhaler hours as Branc h needed for Wheezing or Shortness of Breath. levalbutero 2021- No [id number] 1{puff} Inhale 1-2 Univers l (XOPENEX 3-28 12-28 Puffs ity of HFA) 45 00:00: 00:00 every 4 [place] mcg/actuati 00 :00 (four) Medica l on inhaler hours as Branc h needed for Wheezing or Shortness of Breath. montelukast 2021- No [id number] 10mg Take 1 [facility] 10 mg 3-28 12-28 tablet by ity of tablet 00:00: 00:00 mouth at [place] 00 :00 bedtime. Medical Branch levalbutero 2021- No [id number] 1{puff} Inhale 1-2 Univers l (XOPENEX 3-28 12-28 Puffs ity of HFA) 45 00:00: 00:00 every 4 [place] mcg/actuati 00 :00 (four) Medica l on inhaler hours as Branc h needed for Wheezing or Shortness of Breath. montelukast 2021- No [id number] 10mg Take 1 [facility] 10 mg 3-28 12-28 tablet by ity of tablet 00:00: 00:00 mouth at [place] 00 :00 bedtime. Medical Branch atenoloL 25 2021- No [id number] 25mg Take 1 [facility] mg tablet 07-20 tablet by ity of 00:00: 00:00 mouth [place] 00 :00 daily. Medical Branch atenoloL 25 2021- No [id number] 25mg Take 1 [facility] mg tablet 07-20 tablet by ity of 00:00: 00:00 mouth [place] 00 :00 daily. Medical Branch 2019-06 2020- No Take by [facility] rs vit 06-19 mouth. ity of calc,iron,f 08:06: 00:00 [place] olic 28 :00 Medical ( Branch VITAMIN ORAL) Fluticasone 2017-06 Yes 1 spray, Me moria propionate 1-08 NASAL, l 0.05 22:02: BID, # 16 [place]anyel MG/ACTUAT 00 gm, 0 Metered Refill(s) Dose Nasal [place] [Flonase] Fluticasone 2017-06 Yes 1 spray, Me moria propionate 1-08 NASAL, l 0.05 22:02: BID, # 16 [place] MG/ACTUAT 00 gm, 0 Metered Refill(s) Dose Nasal [place] [Flonase] Ativan 2017-06 No Notes: Memoria -08 (Same as: l 20:29: Ativan) [place] 00 Ativan 2017-06 No Notes: Memoria 1-08 (Same as: l 20:29: Ativan) [place] 00 normal 2017-06 No 1,000 mL, Memori a saline 0.9% 1-08 Rate: 75 l IV 1,000 mL 20:28: ml/hr, Herm sugar 00 Infuse over: 13.3 hr, Route: IV, Dosing Weight 68.182 kg, Total Volume: 1,000, Priority: STAT, Start date: 04/26/18 14:28:00 [employer], Duration: 1 doses or times, Stop date: 04/27/18 3:45:00 [employer], 1.78, m2 normal 2017-06 No 1,000 mL, Memori a saline 0.9% -08 Rate: 75 l IV 1,000 mL 20:28: ml/hr, Herm sugar 00 Infuse over: 13.3 hr, Route: IV, Dosing Weight 68.182 kg, Total Volume: 1,000, Priority: STAT, Start date: 04/26/18 14:28:00 [employer], Duration: 1 doses or times, Stop date: 04/27/18 3:45:00 [employer], 1.78, m2 tramadol No Notes: Not Mem oria hydrochlori 5-12 to exceed l de 50 MG 02:20: 400mg/day. Her henderson Oral Tablet 00 (Same As: Ultram) tramadol No Notes: Not Mem oria hydrochlori 5-12 to exceed l de 50 MG 02:20: 400mg/day. Her henderson Oral Tablet 00 (Same As: Ultram) tramadol Yes 50 mg = 1 Fidel boni hydrochlori 7-03 tab, PO, l de 50 MG 03:36: Q6H, X 3 Evelyn nn Oral Tablet 00 day, # 12 tab, 0 Refill(s) Motrin 800 Yes 800 mg = 1 M emoria mg oral 12-19 tab, PO, l tablet 03:36: Q8H, PRN [place] 00 Pain, Take with food, X 7 day, # 21 tab, 0 Refill(s) tramadol Yes 50 mg = 1 Fidel boni hydrochlori 7- tab, PO, l de 50 MG 03:36: Q6H, X 3 Evelyn nn Oral Tablet 00 day, # 12 tab, 0 Refill(s) Motrin 800 Yes 800 mg = 1 M emoria mg oral - tab, PO, l tablet 03:36: Q8H, PRN [place] 00 Pain, Take with food, X 7 day, # 21 tab, 0 Refill(s) Rocephin No Notes: Memoria 7- (Same As: l 03:05: Rocephin) Danyel Azithromyci No Notes: Fidel boni n - Take 1 l 03:05: hour [place] 00 before or 2 hours after meals. (Same As: Zithromax) Rocephin No Notes: Memoria 7- (Same As: l 03:05: Rocephin) D[place]el Azithromyci No Notes: Fidel boni n 7- Take 1 l 03:05: hour [place] 00 before or 2 hours after meals. (Same As: Zithromax) ketOROLAC No 4 days Memor ia 30 mg/mL 12-19 l injectable 02:47: MEDICATION H ermann solution 00 WASTE Product Size: 30 mg Product Wasted: ___ mg ketOROLAC No 4 days Memor ia 30 mg/mL 12-19 l injectable 02:47: MEDICATION H ermann solution 00 WASTE Product Size: 30 mg Product Wasted: ___ mg Saline No Notes: Memoria Flush 0.9% 12-18 Same as: l 23:35: BD [place] 00 Posiflush Sterile Saline No Notes: Memoria Flush 0.9% 12-18 Same as: l 23:35: BD [place]el Posiflush Sterile Immunizations Ordered Immunization Filled Date Status Comments Sour ce Name Immunization Name Influenza Virus 2022-06-15 Completed [facility]it y of Vaccine Quad IM, 00:00:00 [place] [facility] Preserv and ABX Free Bran ch 6 MO-64 YRS Pneumococcal 20 2022-06-15 Completed Universit y of Conjugate, PCV20 00:00:00 [place] Me dical (Prevnar 20) Branch Influenza Virus 2022-06-15 Completed Universit y of Vaccine Quad IM, 00:00:00 [place] Me dical Preserv and ABX Free Bran ch 6 MO-64 YRS Pneumococcal 20 2022-06-15 Completed Universit y of Conjugate, PCV20 00:00:00 [place] Me dical (Prevnar 20) Branch Influenza Virus 2022-06-15 Completed Universit y of Vaccine Quad IM, 00:00:00 [place] Me dical Preserv and ABX Free Bran ch 6 MO-64 YRS Pneumococcal 20 2022-06-15 Completed Universit y of Conjugate, PCV20 00:00:00 [place] Me dical (Prevnar 20) Branch Influenza Virus 2022-06-15 Completed Universit y of Vaccine Quad IM, 00:00:00 [place] Me dical Preserv and ABX Free Bran ch 6 MO-64 YRS Pneumococcal 20 2022-06-15 Completed Universit y of Conjugate, PCV20 00:00:00 [place] Me dical (Prevnar 20) Branch Influenza Virus 2022-06-15 Completed Universit y of Vaccine Quad IM, 00:00:00 [place] Me dical Preserv and ABX Free Bran ch 6 MO-64 YRS Pneumococcal 20 2022-06-15 Completed Universit y of Conjugate, PCV20 00:00:00 [place] Me dical (Prevnar 20) Branch Influenza Virus 2022-06-15 Completed Universit y of Vaccine Quad IM, 00:00:00 [place] Me dical Preserv and ABX Free Bran ch 6 MO-64 YRS Pneumococcal 20 2022-06-15 Completed Universit y of Conjugate, PCV20 00:00:00 [place] Me dical (Prevnar 20) Branch Influenza Virus 2022-06-15 Completed Universit y of Vaccine Quad IM, 00:00:00 [place] Me dical Preserv and ABX Free Bran ch 6 MO-64 YRS Pneumococcal 20 2022-06-15 Completed Universit y of Conjugate, PCV20 00:00:00 [place] Me dical (Prevnar 20) Branch Influenza Virus 2022-06-15 Completed Universit y of Vaccine Quad IM, 00:00:00 [place] Me dical Preserv and ABX Free Bran ch 6 MO-64 YRS Pneumococcal 20 2022-06-15 Completed Universit y of Conjugate, PCV20 00:00:00 [facility] [place] dical (Prevnar 20) Branch Influenza Virus 2022-06-15 Completed Universit y of Vaccine Quad IM, 00:00:00 [facility] [place] dical Preserv and ABX Free Bran ch 6 MO-64 YRS Pneumococcal 20 2022-06-15 Completed Universit y of Conjugate, PCV20 00:00:00 [facility] [place] dical (Prevnar 20) Branch Influenza Virus 2022-06-15 Completed Universit y of Vaccine Quad IM, 00:00:00 [place] Me dical Preserv and ABX Free Bran ch 6 MO-64 YRS Pneumococcal 20 2022-06-15 Completed Universit y of Conjugate, PCV20 00:00:00 [facility] [place] dical (Prevnar 20) Branch Influenza Virus 2022-06-15 Completed Universit y of Vaccine Quad IM, 00:00:00 [place] Me dical Preserv and ABX Free Bran ch 6 MO-64 YRS Pneumococcal 20 2022-06-15 Completed Universit y of Conjugate, PCV20 00:00:00 [facility] [place] dical (Prevnar 20) Branch Influenza Virus 2022-06-15 Completed Universit y of Vaccine Quad IM, 00:00:00 [place] Me dical Preserv and ABX Free Bran ch 6 MO-64 YRS Pneumococcal 20 2022-06-15 Completed Universit y of Conjugate, PCV20 00:00:00 [place] Me dical (Prevnar 20) Branch Influenza Virus 2022-06-15 Completed Universit y of Vaccine Quad IM, 00:00:00 [place] Me dical Preserv and ABX Free Bran ch 6 MO-64 YRS Pneumococcal 20 2022-06-15 Completed Universit y of Conjugate, PCV20 00:00:00 [facility] [place] dical (Prevnar 20) [place] Influenza Virus 2022-06-15 Completed Universit y of Vaccine Quad IM, 00:00:00 [facility] [place] dical Preserv and ABX Free Bran ch 6 MO-64 YRS Pneumococcal 20 2022-06-15 Completed Universit y of Conjugate, PCV20 00:00:00 [facility] [place] dical (Prevnar 20) [place] Influenza Virus 2022-06-15 Completed Universit y of Vaccine Quad IM, 00:00:00 [facility] [place] dical Preserv and ABX Free Bran ch 6 MO-64 YRS Pneumococcal 20 2022-06-15 Completed Universit y of Conjugate, PCV20 00:00:00 [facility] [place] dical (Prevnar 20) [place] MMR 2021-06-10 Completed University of 00:00:00 [facility] MMR 2021-06-10 Completed University of 00:00:00 [facility] MMR 2021-06-10 Completed University of 00:00:00 [facility] MMR 2021-06-10 Completed University of 00:00:00 [facility] MMR 2021-06-10 Completed University of 00:00:00 [facility] MMR 2021-06-10 Completed University of 00:00:00 [facility] MMR 2021-06-10 Completed University of 00:00:00 [facility] MMR 2021-06-10 Completed University of 00:00:00 [facility] MMR 2021-06-10 Completed [facility] of 00:00:00 [facility] [facility] MMR 2021-06-10 Completed [facility] 00[facility]00:00 [facility] MMR 2021-06-10 Completed [facility] 00[facility]00:00 [facility] MMR 2021-06-10 Completed [facility] 00[facility]00:00 [facility] MMR 2021-06-10 Completed [facility] 00[facility]00:00 [facility] MMR 2021-06-10 Completed [facility] 00[facility]00:00 [facility] MMR 2021-06-10 Completed [facility] 00:00:00 [facility] MMR 2021-06-10 Completed [facility] 00[facility]00:00 [facility] MMR 2021-06-10 Completed [facility] 00[facility]00:00 [facility] MMR 2021-06-10 Completed [facility] 00[facility]00:00 [facility] MMR 2021-06-10 Completed [facility] 00[facility]00:00 [facility] MMR 2021-06-10 Completed [facility] 00[facility]00:00 [facility] MMR 2021-06-10 Completed [facility] 00[facility]00:00 [facility] MMR 2021-06-10 Completed [facility] 00:00:00 [facility] MMR 2021-06-10 Completed [facility] 00[facility]00:00 [facility] MMR 2021-06-10 Completed [facility] 00:00:00 [facility] MMR 2021-06-10 Completed [facility] 00:00:00 [facility] Influenza Virus 2021-04-12 Completed [facility], 00:00:00 [place] [facility] Preserv and ABX Free Bran ch 6 MO-64 YRS Influenza Virus 2021-04-12 Completed [facility], 00:00:00 [place] [facility] Preserv and ABX Free Bran ch 6 MO-64 YRS Influenza Virus 2021-04-12 Completed [facility], 00:00:00 [place] [facility] Preserv and ABX Free Bran ch 6 MO-64 YRS Influenza Virus 2021-04-12 Completed [facility], 00:00:00 [place] [facility] Preserv and ABX Free Bran ch 6 MO-64 YRS Influenza Virus 2021-04-12 Completed [facility], 00:00:00 [place] [facility] Preserv and ABX Free Bran ch 6 MO-64 YRS Influenza Virus 2021-04-12 Completed [facility], 00:00:00 [place] [facility] Preserv and ABX Free Bran ch 6 MO-64 YRS Influenza Virus 2021-04-12 Completed [facility], 00:00:00 [place] [facility] Preserv and ABX Free Bran ch 6 MO-64 YRS Influenza Virus 2021-04-12 Completed [facility], 00:00:00 [place] [facility] Preserv and ABX Free Bran ch 6 MO-64 YRS Influenza Virus 2021-04-12 Completed [facility], 00:00:00 [place] [facility] Preserv and ABX Free Bran ch 6 MO-64 YRS Influenza Virus 2021-04-12 Completed [facility], 00:00:00 [place] [facility] Preserv and ABX Free Bran ch 6 MO-64 YRS Influenza Virus 2021-04-12 Completed [facility], 00:00:00 [place] [facility] Preserv and ABX Free Bran ch 6 MO-64 YRS Influenza Virus 2021-04-12 Completed [facility], 00:00:00 [place] [facility] Preserv and ABX Free Bran ch 6 MO-64 YRS Influenza Virus 2021-04-12 Completed [facility], 00:00:00 [place] [facility] Preserv and ABX Free Bran ch 6 MO-64 YRS Influenza Virus 2021-04-12 Completed [facility], 00:00:00 [place] [facility] Preserv and ABX Free Bran ch 6 MO-64 YRS Influenza Virus 2021-04-12 Completed [facility], 00:00:00 [place] [facility] Preserv and ABX Free Bran ch 6 MO-64 YRS Influenza Virus 2021-04-12 Completed [facility], 00:00:00 [place] [facility] Preserv and ABX Free Bran ch 6 MO-64 YRS Influenza Virus 2021-04-12 Completed [facility], 00:00:00 [place] [facility] Preserv and ABX Free Bran ch 6 MO-64 YRS Influenza Virus 2021-04-12 Completed [facility], 00:00:00 [place] [facility] Preserv and ABX Free Bran ch 6 MO-64 YRS Influenza Virus 2021-04-12 Completed [facility], 00:00:00 [place] [facility] Preserv and ABX Free Bran ch 6 MO-64 YRS Influenza Virus 2021-04-12 Completed [facility], 00:00:00 [place] [facility] Preserv and ABX Free Bran ch 6 MO-64 YRS Influenza Virus 2021-04-12 Completed [facility], 00:00:00 [place] [facility] Preserv and ABX Free Bran ch 6 MO-64 YRS Influenza Virus 2021-04-12 Completed [facility], 00:00:00 [place] [facility] Preserv and ABX Free Bran ch 6 MO-64 YRS Influenza Virus 2021-04-12 Completed [facility], 00:00:00 [place] [facility] Preserv and ABX Free Bran ch 6 MO-64 YRS Influenza Virus 2021-04-12 Completed [facility], 00:00:00 [place] [facility] Preserv and ABX Free Bran ch 6 MO-64 YRS Influenza Virus 2021-04-12 Completed [facility], 00:00:00 [place] [facility] Preserv and ABX Free Bran ch 6 MO-64 YRS SARS-COV-2 COVID-19 2021-03-25 Completed [facility]OV[facility]2 COVID-19 2021-03-25 Completed [facility]ZER VACCINE [facility] SARS-COV-2 COVID-19 2021-03-25 Completed [facility] PFIZER VACCINE 00:[facility]:00 [facility] SARS-COV-2 COVID-19 2021-03-25 Completed [facility] PFIZER VACCINE 00:[facility]:00 [facility] SARS-COV-2 COVID-19 2021-03-25 Completed [facility] PFIZER VACCINE 00:00:00 [facility] SARS-COV-2 COVID-19 2021-03-25 Completed [facility] PFIZER VACCINE 00:00:00 [facility] SARS-COV-2 COVID-19 2021-03-25 Completed [facility] PFIZER VACCINE 00:00:00 [facility] SARS-COV-2 COVID-19 2021-03-25 Completed [facility] PFIZER VACCINE 00:00:00 [facility] SARS-COV-2 COVID-19 2021-03-25 Completed [facility] PFIZER VACCINE 00:00:00 [facility] SARS-COV-2 COVID-19 2021-03-25 Completed [facility] PFIZER VACCINE 00:00:00 [facility] SARS-COV-2 COVID-19 2021-03-25 Completed [facility] PFIZER VACCINE 00:00:00 [facility] SARS-COV-2 COVID-19 2021-03-25 Completed [facility] PFIZER VACCINE 00:00:00 [facility] SARS-COV-2 COVID-19 2021-03-25 Completed [facility] PFIZER VACCINE 00:00:00 [facility] SARS-COV-2 COVID-19 2021-03-25 Completed [facility] PFIZER VACCINE 00:00:00 [facility] SARS-COV-2 COVID-19 2021-03-25 Completed [facility] PFIZER VACCINE 00:00:00 [facility] SARS-COV-2 COVID-19 2021-03-25 Completed [facility] PFIZER VACCINE 00:00:00 [facility] SARS-COV-2 COVID-19 2021-03-25 Completed [facility] PFIZER VACCINE 00:00:00 [facility] SARS-COV-2 COVID-19 2021-03-25 Completed [facility] PFIZER VACCINE 00:00:00 [facility] SARS-COV-2 COVID-19 2021-03-25 Completed [facility] PFIZER VACCINE 00:00:00 [facility] SARS-COV-2 COVID-19 2021-03-25 Completed [facility] PFIZER VACCINE 00:00:00 [facility] SARS-COV-2 COVID-19 2021-03-25 Completed [facility] PFIZER VACCINE 00:00:00 [facility] SARS-COV-2 COVID-19 2021-03-25 Completed [facility] PFIZER VACCINE 00:00:00 [facility] SARS-COV-2 COVID-19 2021-03-25 Completed [facility] PFIZER VACCINE 00:00:00 [facility] SARS-COV-2 COVID-19 2021-03-25 Completed [facility] PFIZER VACCINE 00:00:00 [facility] SARS-COV-2 COVID-19 2021-03-25 Completed [facility] PFIZER VACCINE 00:00:00 [facility] SARS-COV-2 COVID-19 2021-03-04 Completed [facility] PFIZER VACCINE 00:00:00 [facility] SARS-COV-2 COVID-19 2021-03-04 Completed [facility] PFIZER VACCINE 00:00:00 [facility] SARS-COV-2 COVID-19 2021-03-04 Completed [facility] PFIZER VACCINE 00:00:00 [facility] SARS-COV-2 COVID-19 2021-03-04 Completed [facility] PFIZER VACCINE 00:00:00 [facility] SARS-COV-2 COVID-19 2021-03-04 Completed [facility] PFIZER VACCINE 00:00:00 [facility] SARS-COV-2 COVID-19 2021-03-04 Completed [facility] PFIZER VACCINE 00:00:00 [facility] SARS-COV-2 COVID-19 2021-03-04 Completed [facility] PFIZER VACCINE 00:00:00 [facility] SARS-COV-2 COVID-19 2021-03-04 Completed [facility] PFIZER VACCINE 00:00:00 [facility] SARS-COV-2 COVID-19 2021-03-04 Completed [facility] PFIZER VACCINE 00:00:00 [facility] SARS-COV-2 COVID-19 2021-03-04 Completed [facility] PFIZER VACCINE 00:00:00 [facility] SARS-COV-2 COVID-19 2021-03-04 Completed [facility] PFIZER VACCINE 00:00:00 [facility] SARS-COV-2 COVID-19 2021-03-04 Completed [facility] PFIZER VACCINE 00:00:00 [facility] SARS-COV-2 COVID-19 2021-03-04 Completed [facility] PFIZER VACCINE 00:[facility] SARS-COV-2 COVID-19 2021-03-04 Completed [facility] PFIZER VACCINE 00:00:00 [facility] SARS-COV-2 COVID-19 2021-03-04 Completed [facility] PFIZER VACCINE 00:00:00 [facility] SARS-COV-2 COVID-19 2021-03-04 Completed [facility] PFIZER VACCINE 00:00:00 [facility] SARS-COV-2 COVID-19 2021-03-04 Completed [facility] PFIZER VACCINE 00:[facility] SARS-COV-2 COVID-19 2021-03-04 Completed [facility] PFIZER VACCINE 00:00:00 [facility] SARS-COV-2 COVID-19 2021-03-04 Completed [facility] PFIZER VACCINE 00:00:00 [facility] SARS-COV-2 COVID-19 2021-03-04 Completed [facility] PFIZER VACCINE 00:00:00 [facility] SARS-COV-2 COVID-19 2021-03-04 Completed [facility] PFIZER VACCINE 00:00:00 [facility] SARS-COV-2 COVID-19 2021-03-04 Completed [facility] PFIZER VACCINE 00:00:00 [facility] SARS-COV-2 COVID-19 2021-03-04 Completed [facility] PFIZER VACCINE 00:00:00 [facility] SARS-COV-2 COVID-19 2021-03-04 Completed [facility] PFIZER VACCINE 00:00:00 [facility] SARS-COV-2 COVID-19 2021-03-04 Completed [facility] PFIZER VACCINE 00:00:00 [facility] Influenza Virus 2020-03-11 Completed [facility] .5 mL 00:00:00 [place] [facility] 6[facility] Influenza Virus 2020-03-11 Completed [facility] .5 mL 00:00:00 [place] [facility] 6[facility] Influenza Virus 2020-03-11 Completed [facility] .5 mL 00:00:00 [place] [facility] 6[facility] Influenza Virus 2020-03-11 Completed [facility] .5 mL 00:00:00 [place] [facility] 6+ MO [facility] Influenza Virus 2020-03-11 Completed [facility] .5 mL 00:00:00 [place] [facility] 6[facility] MO [facility] Influenza Virus 2020-03-11 Completed [facility] .5 mL 00:00:00 [place] [facility] 6+ MO [facility] Influenza Virus 2020-03-11 Completed [facility] .5 mL 00:00:00 [place] [facility] 6[facility] Influenza Virus 2020-03-11 Completed [facility] .5 mL 00:00:00 [place] [facility] 6+ MO [facility] Influenza Virus 2020-03-11 Completed [facility] .5 mL 00:00:00 [place] [facility] 6[facility] MO [facility] Influenza Virus 2020-03-11 Completed [facility] .5 mL 00:00:00 [place] [facility] 6[facility] MO [facility] Influenza Virus 2020-03-11 Completed [facility] .5 mL 00:00:00 [place] [facility] 6[facility] MO [facility] Influenza Virus 2020-03-11 Completed [facility] .5 mL 00:00:00 [place] [facility] 6[facility] MO [facility] Influenza Virus 2020-03-11 Completed [facility] .5 mL 00:00:00 [place] [facility] 6[facility] Influenza Virus 2020-03-11 Completed [facility] .5 mL 00:00:00 [place] [facility] 6[facility] MO [facility] Influenza Virus 2020-03-11 Completed [facility] .5 mL 00:00:00 [place] [facility] 6[facility] Influenza Virus 2020-03-11 Completed [facility] .5 mL 00:00:00 [place] [facility] 6[facility] MO [facility] Influenza Virus 2020-03-11 Completed [facility] .5 mL 00:00:00 [place] [facility] 6[facility] MO [facility] Influenza Virus 2020-03-11 Completed [facility] .5 mL 00:00:00 [place] [facility] 6[facility] MO [facility] Influenza Virus 2020-03-11 Completed [facility] .5 mL 00:00:00 [place] [facility] 6[facility] MO [facility] Influenza Virus 2020-03-11 Completed [facility] .5 mL 00:00:00 [place] [facility] 6[facility] MO [facility] Influenza Virus 2020-03-11 Completed [facility] .5 mL 00:00:00 [place] [facility] 6+ MO [facility] Influenza Virus 2020-03-11 Completed [facility] .5 mL 00:00:00 [place] [facility] 6[facility] MO [facility] Influenza Virus 2020-03-11 Completed [facility] .5 mL 00:00:00 [place] [facility] 6[facility] MO [facility] Influenza Virus 2020-03-11 Completed [facility] .5 mL 00:00:00 [place] [facility] 6[facility] MO [facility] Influenza Virus 2020-03-11 Completed [facility] .5 mL 00:00:00 [place] [facility] 6[facility] TDAP 2020-02-21 Completed [facility] 00:[facility]:00 [place] [facility] [place] TDAP 2020-02-21 Completed [facility] 00:00:00 [place] [facility] [place] TDAP 2020-02-21 Completed [facility] 00:00:00 [facility] [place] TDAP 2020-02-21 Completed [facility] 00:00:00 [facility] TDAP 2020-02-21 Completed [facility] 00:00:00 [facility] TDAP 2020-02-21 Completed [facility] 00:00:00 [facility] TDAP 2020-02-21 Completed [facility] 00:00:00 [facility] TDAP 2020-02-21 Completed [facility] 00:00:00 [facility] TDAP 2020-02-21 Completed [facility] 00:00:00 [facility] TDAP 2020-02-21 Completed [facility] 00:00:00 [facility] TDAP 2020-02-21 Completed [facility] 00:00:00 [facility] TDAP 2020-02-21 Completed [facility] 00:00:00 [facility] TDAP 2020-02-21 Completed [facility] 00:00:00 [facility] TDAP 2020-02-21 Completed [facility] 00:00:00 [facility] TDAP 2020-02-21 Completed [facility] 00:00:00 [facility] TDAP 2020-02-21 Completed [facility] 00:00:00 [facility] TDAP 2020-02-21 Completed [facility] 00:00:00 [facility] TDAP 2020-02-21 Completed [facility] 00:00:00 [facility] TDAP 2020-02-21 Completed [facility] 00:00:00 [facility] TDAP 2020-02-21 Completed [facility] 00:00:00 [facility] TDAP 2020-02-21 Completed [facility] 00:00:00 [facility] TDAP 2020-02-21 Completed [facility] 00:00:00 [facility] TDAP 2020-02-21 Completed [facility] 00:00:00 [facility] TDAP 2020-02-21 Completed [facility] 00:00:00 [place] [facility] TDAP 2020-02-21 Completed [facility] 00:00:00 [facility] TDAP 2016-07-13 Completed [facility] 00[facility]00:00 [facility] TDAP 2016-07-13 Completed [facility] 00:00:00 [facility] TDAP 2016-07-13 Completed [facility] 00:00:00 [facility] TDAP 2016-07-13 Completed [facility] 00:00:00 [facility] TDAP 2016-07-13 Completed [facility] 00:00:00 [facility] TDAP 2016-07-13 Completed [facility] 00:00:00 [facility] TDAP 2016-07-13 Completed [facility] 00:00:00 [facility] TDAP 2016-07-13 Completed [facility] 00:00:00 [facility] TDAP 2016-07-13 Completed [facility] 00:00:00 [facility] TDAP 2016-07-13 Completed [facility] 00:00:00 [facility] TDAP 2016-07-13 Completed [facility] 00:00:00 [facility] TDAP 2016-07-13 Completed [facility] 00:00:00 [facility] TDAP 2016-07-13 Completed [facility] 00:00:00 [facility] TDAP 2016-07-13 Completed [facility] 00:00:00 [facility] TDAP 2016-07-13 Completed [facility] 00:00:00 [facility] TDAP 2016-07-13 Completed [facility] 00:00:00 [facility] TDAP 2016-07-13 Completed [facility] 00:00:00 [facility] TDAP 2016-07-13 Completed [facility] 00:00:00 [facility] TDAP 2016-07-13 Completed [facility] 00:00:00 [facility] TDAP 2016-07-13 Completed [facility] 00:00:00 [facility] TDAP 2016-07-13 Completed [facility] 00:00:00 [facility] TDAP 2016-07-13 Completed [facility] 00:00:00 [facility] TDAP 2016-07-13 Completed [facility] 00:00:00 [facility] TDAP 2016-07-13 Completed [facility] 00:00:00 [facility] TDAP 2016-07-13 Completed [facility] 00:00:00 [facility] Influenza Virus 2016-04-04 Completed [facility] 3+ 00:00:00 [facility] Influenza Virus 2016-04-04 Completed [facility] IM 3+ 00:00:00 [facility] Influenza Virus 2016-04-04 Completed [facility] IM 3+ 00:00:00 [facility] Influenza Virus 2016-04-04 Completed [facility] IM 3+ 00:00:00 [facility] Influenza Virus 2016-04-04 Completed [facility] IM 3+ 00:00:00 [facility] Influenza Virus 2016-04-04 Completed [facility] IM 3+ 00:00:00 [facility] Influenza Virus 2016-04-04 Completed [facility] IM 3+ 00:00:00 [facility] Influenza Virus 2016-04-04 Completed [facility] IM 3+ 00:00:00 [facility] Influenza Virus 2016-04-04 Completed [facility] IM 3+ 00:00:00 [facility] Influenza Virus 2016-04-04 Completed [facility] IM 3+ 00:00:00 [facility] Influenza Virus 2016-04-04 Completed [facility] IM 3+ 00:00:00 [facility] Influenza Virus 2016-04-04 Completed [facility] IM 3+ 00:00:00 [facility] Influenza Virus 2016-04-04 Completed [facility] IM 3+ 00:00:00 [facility] Influenza Virus 2016-04-04 Completed [facility] IM 3+ 00:00:00 [facility] Influenza Virus 2016-04-04 Completed [facility] IM 3+ 00:00:00 [facility] Influenza Virus 2016-04-04 Completed [facility] IM 3+ 00:00:00 [facility] Influenza Virus 2016-04-04 Completed [facility] IM 3+ 00:00:00 [facility] Influenza Virus 2016-04-04 Completed [facility] IM 3+ 00:00:00 [facility] Influenza Virus 2016-04-04 Completed [facility] IM 3+ 00:00:00 [facility] Influenza Virus 2016-04-04 Completed [facility] IM 3+ 00:00:00 [facility] Influenza Virus 2016-04-04 Completed [facility] IM 3+ 00:00:00 [facility] Influenza Virus 2016-04-04 Completed [facility] IM 3+ 00:00:00 [facility] Influenza Virus 2016-04-04 Completed [facility] IM 3+ 00:00:00 [facility] Influenza Virus 2016-04-04 Completed [facility] IM 3+ 00:00:00 [facility] Influenza Virus 2016-04-04 Completed [facility] IM 3+ 00:00:00 [facility] TDAP 2015-02-19 Completed [facility] 00:00:00 [facility] TDAP 2015-02-19 Completed [facility] 00:00:00 [facility] TDAP 2015-02-19 Completed [facility] 00:00:00 [facility] TDAP 2015-02-19 Completed [facility] 00:00:00 [facility] TDAP 2015-02-19 Completed [facility] 00:00:00 [facility] TDAP 2015-02-19 Completed [facility] 00:00:00 [facility] TDAP 2015-02-19 Completed [facility] 00:00:00 [facility] TDAP 2015-02-19 Completed [facility] 00:00:00 [facility] TDAP 2015-02-19 Completed [facility] 00:00:00 [facility] TDAP 2015-02-19 Completed [facility] 00:00:00 [facility] TDAP 2015-02-19 Completed [facility] 00:00:00 [facility] TDAP 2015-02-19 Completed [facility] 00:00:00 [facility] TDAP 2015-02-19 Completed [facility] 00:00:00 [facility] TDAP 2015-02-19 Completed [facility] 00:00:00 [facility] TDAP 2015-02-19 Completed [facility] 00:00:00 [facility] TDAP 2015-02-19 Completed [facility] 00:00:00 [facility] TDAP 2015-02-19 Completed [facility] 00:00:00 [facility] TDAP 2015-02-19 Completed [facility] 00:00:00 [facility] TDAP 2015-02-19 Completed [facility] 00:00:00 [facility] TDAP 2015-02-19 Completed [facility] 00:00:00 [facility] TDAP 2015-02-19 Completed [facility] 00:00:00 [facility] TDAP 2015-02-19 Completed [facility] 00:00:00 [facility] TDAP 2015-02-19 Completed [facility] 00:00:00 [facility] TDAP 2015-02-19 Completed [facility] 00:00:00 [facility] TDAP 2015-02-19 Completed [facility] 00:00:00 [facility] HPV 2012-10-17 Completed [facility] 00:00:00 [facility] HPV 2012-10-17 Completed [facility] 00:00:00 [facility] HPV 2012-10-17 Completed [facility] 00[facility]00:00 [facility] HPV 2012-10-17 Completed [facility] 00:00:00 [facility] HPV 2012-10-17 Completed [facility] 00[facility]00:00 [facility] HPV 2012-10-17 Completed [facility] 00:00:00 [facility] HPV 2012-10-17 Completed [facility] 00:00:00 [facility] HPV 2012-10-17 Completed [facility] 00:00:00 [facility] HPV 2012-10-17 Completed [facility] 00:00:00 [facility] HPV 2012-10-17 Completed [facility] 00:00:00 [facility] HPV 2012-10-17 Completed [facility] 00:00:00 [facility] HPV 2012-10-17 Completed [facility] 00:00:00 [facility] HPV 2012-10-17 Completed [facility] 00:00:00 [facility] HPV 2012-10-17 Completed [facility] 00:00:00 [facility] HPV 2012-10-17 Completed [facility] 00:00:00 [facility] HPV 2012-10-17 Completed [facility] 00:00:00 [facility] HPV 2012-10-17 Completed [facility] 00:00:00 [facility] HPV 2012-10-17 Completed [facility] 00:00:00 [facility] HPV 2012-10-17 Completed [facility] 00:00:00 [facility] HPV 2012-10-17 Completed [facility] of 00:00:00 [facility] HPV 2012-10-17 Completed [facility] 00:00:00 [facility] Varicella 2012-10-17 Completed [facility] of (varivax)(chicken 00:00:00 [place] [facility] pox[facility] TDAP 2012-10-17 Completed [facility] 00:00:00 [facility] Meningococcal 2012-10-17 Completed [facility] Polysaccharide 00:00:00 [place] [facility] (groups A, C, Y and Branc h W-135) conjugate vaccine (MCV4P) HPV 2012-10-17 Completed [facility] 00:00:00 [facility] Varicella 2012-10-17 Completed [facility] (varivax)(chicken 00:00:00 [place] [facility] pox[facility] TDAP 2012-10-17 Completed [facility] 00:00:00 [facility] Meningococcal 2012-10-17 Completed [facility] Polysaccharide 00:00:00 [place] [facility] (groups A, C, Y and Branc h W-135) conjugate vaccine (MCV4P) HPV 2012-10-17 Completed [facility] 00:00:00 [facility] Varicella 2012-10-17 Completed [facility] (varivax)(chicken 00:00:00 [place] [facility] pox) [facility] TDAP 2012-10-17 Completed [facility] 00:00:00 [facility] Meningococcal 2012-10-17 Completed [facility] Polysaccharide 00:00:00 [place] [facility] (groups A, C, Y and Branc h W-135) conjugate vaccine (MCV4P) HPV 2012-10-17 Completed [facility] 00:00:00 [facility] Varicella 2012-10-17 Completed [facility] (varivax)(chicken 00:00:00 [place] [facility] pox[facility] TDAP 2012-10-17 Completed [facility] 00:00:00 [facility] Meningococcal 2012-10-17 Completed [facility] Polysaccharide 00:00:00 [place] [facility] (groups A, C, Y and Branc h W-135) conjugate vaccine (MCV4P) HPV 2012-10-17 Completed [facility] 00:00:00 [facility] Varicella 2012-10-17 Completed [facility] (varivax)(chicken 00:00:00 [place] [facility] pox) [facility] TDAP 2012-10-17 Completed [facility] 00:00:00 [facility] Meningococcal 2012-10-17 Completed [facility] Polysaccharide 00:00:00 [place] [facility] (groups A, C, Y and Branc h W-135) conjugate vaccine (MCV4P) HPV 2012-02-01 Completed [facility] 00:00:00 [facility] HPV 2012-02-01 Completed [facility] 00:00:00 [facility] HPV 2012-02-01 Completed [facility] 00:00:00 [facility] HPV 2012-02-01 Completed [facility] 00:00:00 [facility] HPV 2012-02-01 Completed [facility] 00:00:00 [facility] HPV 2012-02-01 Completed [facility] 00:00:00 [facility] HPV 2012-02-01 Completed [facility] 00:00:00 [facility] HPV 2012-02-01 Completed [facility] 00:00:00 [facility] HPV 2012-02-01 Completed [facility] 00:00:00 [facility] HPV 2012-02-01 Completed [facility] 00:00:00 [facility] HPV 2012-02-01 Completed [facility] 00:00:00 [facility] HPV 2012-02-01 Completed [facility] 00:00:00 [facility] HPV 2012-02-01 Completed [facility] 00:00:00 [facility] HPV 2012-02-01 Completed [facility] 00:00:00 [facility] HPV 2012-02-01 Completed [facility] 00:00:00 [facility] HPV 2012-02-01 Completed [facility] 00:00:00 [facility] HPV 2012-02-01 Completed [facility] 00:00:00 [facility] HPV 2012-02-01 Completed [facility] 00:00:00 [facility] HPV 2012-02-01 Completed [facility] 00:00:00 [facility] HPV 2012-02-01 Completed [facility] 00:00:00 [facility] HPV 2012-02-01 Completed [facility] 00:00:00 [facility] HPV 2012-02-01 Completed [facility] 00:00:00 [facility] HPV 2012-02-01 Completed [facility] 00:00:00 [facility] HPV 2012-02-01 Completed [facility] 00:00:00 [facility] HPV 2012-02-01 Completed [facility] 00:00:00 [facility] Varicella 2011-01-15 Completed [facility] (varivax)(chicken 00:00:00 [place] [facility] pox[facility] TDAP 2011-01-15 Completed [facility] 00:00:00 [facility] Meningococcal 2011-01-15 Completed [facility] Polysaccharide 00:00:00 [place] [facility] (groups A, C, Y and Branc h W-135) conjugate vaccine (MCV4P) Varicella 2011-01-15 Completed [facility] (varivax)(chicken 00:00:00 [place] [facility] pox) [facility] TDAP 2011-01-15 Completed [facility] 00:00:00 [facility] Meningococcal 2011-01-15 Completed [facility] Polysaccharide 00:00:00 [place] [facility] (groups A, C, Y and Branc h W-135) conjugate vaccine (MCV4P) Varicella 2011-01-15 Completed [facility] (varivax)(chicken 00:00:00 [place] [facility] pox) [facility] TDAP 2011-01-15 Completed [facility] 00:00:00 [facility] Meningococcal 2011-01-15 Completed [facility] Polysaccharide 00:00:00 [place] [facility] (groups A, C, Y and Branc h W-135) conjugate vaccine (MCV4P) Varicella 2011-01-15 Completed [facility] (varivax)(chicken 00:00:00 [place] [facility]ox[facility] TD 2011-01-15 Completed [facility] 00:00:00 [facility] Meningococcal 2011-01-15 Completed [facility] Polysaccharide 00:00:00 [place] [facility] (groups A, C, Y and Branc h W-135) conjugate vaccine (MCV4P) Varicella 2011-01-15 Completed [facility] (varivax)(chicken 00:00:00 [place] [facility] pox) [facility] TDAP 2011-01-15 Completed [facility] 00:00:00 [facility] Meningococcal 2011-01-15 Completed [facility] Polysaccharide 00:00:00 [place] [facility] (groups A, C, Y and Branc h W-135) conjugate vaccine (MCV4P) IPV 2003-09-09 Completed [facility] of 00:00:00 [facility] DTaP, Unspecified 2003-09-09 Completed Univers ity of Formulation 00:00:00 [facility] IPV 2003-09-09 Completed [facility] of 00:00:00 [facility] DTaP, Unspecified 2003-09-09 Completed Univers ity of Formulation 00:00:00 [facility] IPV 2003-09-09 Completed [facility] of 00:00:00 [facility] DTaP, Unspecified 2003-09-09 Completed Univers ity of Formulation 00:00:00 [facility] IPV 2003-09-09 Completed [facility] of 00:00:00 [facility] DTaP, Unspecified 2003-09-09 Completed Univers ity of Formulation 00:00:00 [facility] IPV 2003-09-09 Completed [facility] of 00:00:00 [facility] DTaP, Unspecified 2003-09-09 Completed Univers ity of Formulation 00:00:00 [facility] Varicella 2003-02-26 Completed [facility] of (varivax)(chicken 00:00:00 [place] [facility]ox[facility] IPV 2003-02-26 Completed [facility] 00:00:00 [facility] MMR 2003-02-26 Completed [facility] of 00:00:00 [facility] DTaP, Unspecified 2003-02-26 Completed Univers ity of Formulation 00:00:00 [facility] Varicella 2003-02-26 Completed [facility] of (varivax)(chicken 00:00:00 [place] [facility] pox) [facility] IPV 2003-02-26 Completed [facility] 00:00:00 [facility] MMR 2003-02-26 Completed [facility] of 00:00:00 [facility] DTaP, Unspecified 2003-02-26 Completed Univers ity of Formulation 00:00:00 [facility] Varicella 2003-02-26 Completed [facility] (varivax)(chicken 00:00:00 [place] [facility] IPV 2003-02-26 Completed [facility] 00:00:00 [facility] MMR 2003-02-26 Completed [facility] of 00:00:00 [facility] DTaP, Unspecified 2003-02-26 Completed Univers ity of Formulation 00:00:00 [facility] Varicella 2003-02-26 Completed [facility] of (varivax)(chicken 00:00:00 [place] [facility] pox) [facility] IPV 2003-02-26 Completed [facility] 00:00:00 [facility] MMR 2003-02-26 Completed [facility] of 00:00:00 [facility] DTaP, Unspecified 2003-02-26 Completed Univers ity of Formulation 00:00:00 [facility] Varicella 2003-02-26 Completed [facility] of (varivax)(chicken 00:00:00 [place] [facility] pox) [facility] IPV 2003-02-26 Completed [facility] 00:00:00 [facility] MMR 2003-02-26 Completed [facility] of 00:00:00 [facility] DTaP, Unspecified 2003-02-26 Completed Univers ity of Formulation 00:00:00 [facility] Pneumococcal 7 1999-02-11 Completed University of Conjugate, PCV7 00:00:00 [place] [facility] (Prevnar7) [facility] 1999-02-11 Completed [facility] 00:00:00 [facility] Pneumococcal 7 1999-02-11 Completed University of Conjugate, PCV7 00:00:00 [place] [facility] (Prevnar7) [facility] 1999-02-11 Completed [facility] 00:00:00 [facility] Pneumococcal 7 1999-02-11 Completed [facility] of Conjugate, PCV7 00:00:00 [place] [facility] (Prevnar7) [facility] 1999-02-11 Completed [facility] 00:00:00 [facility] Pneumococcal 7 1999-02-11 Completed [facility] of Conjugate, PCV7 00:00:00 [place] [facility] (Prevnar7) [facility] 1999-02-11 Completed [facility] 00:00:00 [facility] Pneumococcal 7 1999-02-11 Completed [facility] of Conjugate, PCV7 00:00:00 [place] [facility] (Prevnar7) [facility] 1999-02-11 Completed [facility] 00:00:00 [facility] IPV 1998-05-27 Completed [facility] of 00:00:00 [facility] Hep B, Adol or Pedi 1998-05-27 Completed Unive rsity of Dosage 00:00:00 [facility] DTaP, Unspecified 1998-05-27 Completed Univers ity of Formulation 00:00:00 [facility] IPV 1998-05-27 Completed [facility] of 00:00:00 [facility] Hep B, Adol or Pedi 1998-05-27 Completed Unive rsity of Dosage 00:00:00 [facility] DTaP, Unspecified 1998-05-27 Completed Univers ity of Formulation 00:00:00 [facility] IPV 1998-05-27 Completed [facility] of 00:00:00 [facility] Hep B, Adol or Pedi 1998-05-27 Completed Unive rsity of Dosage 00:00:00 [facility] DTaP, Unspecified 1998-05-27 Completed Univers ity of Formulation 00:00:00 [facility] IPV 1998-05-27 Completed [facility] of 00:00:00 [facility] Hep B, Adol or Pedi 1998-05-27 Completed Unive rsity of Dosage 00:00:00 [facility] DTaP, Unspecified 1998-05-27 Completed Univers ity of Formulation 00:00:00 [facility] IPV 1998-05-27 Completed [facility] of 00:00:00 [facility] Hep B, Adol or Pedi 1998-05-27 Completed Unive rsity of Dosage 00:00:00 [facility] DTaP, Unspecified 1998-05-27 Completed Univers ity of Formulation 00:00:00 [facility] Haemophilus 1998-01-05 Completed University of influenzae type b 00:00:00 [facility] edical vaccine, conjugate Branch unspecified formulation Hep B, Adol or Pedi 1998-01-05 Completed Unive rsity of Dosage 00:00:00 [facility] DTaP, Unspecified 1998-01-05 Completed Univers ity of Formulation 00:00:00 [facility] Haemophilus 1998-01-05 Completed University of influenzae type b 00:00:00 [facility] edical vaccine, conjugate Branch unspecified formulation Hep B, Adol or Pedi 1998-01-05 Completed Unive rsity of Dosage 00:00:00 [facility] DTaP, Unspecified 1998-01-05 Completed Univers ity of Formulation 00:00:00 [facility] Haemophilus 1998-01-05 Completed University of influenzae type b 00:00:00 [facility] edical vaccine, conjugate Branch unspecified formulation Hep B, Adol or Pedi 1998-01-05 Completed Unive rsity of Dosage 00:00:00 [facility] DTaP, Unspecified 1998-01-05 Completed Univers ity of Formulation 00:00:00 [facility] Haemophilus 1998-01-05 Completed University of influenzae type b 00:00:00 [facility] edical vaccine, conjugate Branch unspecified formulation Hep B, Adol or Pedi 1998-01-05 Completed Unive rsity of Dosage 00:00:00 [facility] DTaP, Unspecified 1998-01-05 Completed Univers ity of Formulation 00:00:00 [facility] Haemophilus 1998-01-05 Completed University of influenzae type b 00:00:00 [facility] edical vaccine, conjugate Branch unspecified formulation Hep B, Adol or Pedi 1998-01-05 Completed Unive rsity of Dosage 00:00:00 [facility] DTaP, Unspecified 1998-01-05 Completed Univers ity of Formulation 00:00:00 [facility] Hep B, Adol or Pedi 1997 Completed Unive rsity of Dosage 00:00:00 [facility] Hep B, Adol or Pedi 1997 Completed Unive rsity of Dosage 00:00:00 [facility] Hep B, Adol or Pedi 1997 Completed Unive rsity of Dosage 00:00:00 [facility] Hep B, Adol or Pedi 1997 Completed Unive rsity of Dosage 00:00:00 [facility] Hep B, Adol or Pedi 1997 Completed Unive rsity of Dosage 00:00:00 [facility] TDAP Unknown Completed [facility] HPV Unknown Completed [facility] HPV Unknown Completed [facility] Influenza Virus Unknown Completed Universit y of Vaccine Quad IM 3+ [facility] TDAP Unknown Completed [facility] TDAP Unknown Completed [facility] Influenza Virus Unknown Completed Universit y of Vaccine Quad .5 mL [facility] 6+ [place] Branch (FLUZONE/FLULAVAL/FL UARIX) SARS-COV-2 COVID-19 Unknown Completed Unive rsity of PFIZER VACCINE [facility] SARS-COV-2 COVID-19 Unknown Completed Unive rsity of PFIZER VACCINE [facility] Influenza Virus Unknown Completed Universit y of Vaccine Quad IM, [facility] dical Preserv and ABX Free Bran ch 6 MO-64 YRS (FLUCELVAX) MMR Unknown Completed [facility] Influenza Virus Unknown Completed Universit y of Vaccine Quad IM, [facility] [place] dical Preserv and ABX Free Bran ch 6 MO-64 YRS (FLUCELVAX) Pneumococcal 20 Unknown Completed Universit y of Conjugate, PCV20 [facility] [place] dical (Prevnar 20) Branch Varicella Unknown Completed University (varivax)(chicken [place] [facility] pox) Branch Varicella Unknown Completed [facility] (varivax)(chicken [place] [facility] pox) [facility] Varicella Unknown Completed [facility] (varivax)(chicken [place] [facility] pox) Branch TDAP Unknown Completed [facility] TDAP Unknown Completed [facility] IPV Unknown Completed [facility] IPV Unknown Completed [facility] IPV Unknown Completed [facility] Pneumococcal 7 Unknown Completed University of Conjugate, PCV7 [facility] ica (Prevnar7) Branch MMR Unknown Completed [facility] MMR Unknown Completed [facility] Meningococcal Unknown Completed [facility] Polysaccharide [facility] (groups A, C, Y and Branc h W-135) conjugate vaccine (MCV4P) Meningococcal Unknown Completed [facility] Polysaccharide [facility] (groups A, C, Y and Branc h W-135) conjugate vaccine (MCV4P) Haemophilus Unknown Completed [facility] influenzae type b [facility] vaccine, conjugate Branch unspecified formulation Hep B, Adol or Pedi Unknown Completed Unive rsity of Dosage [facility] Hep B, Adol or Pedi Unknown Completed Unive rsity of Dosage [facility] Hep B, Adol or Pedi Unknown Completed Unive rsity of Dosage [facility] DTaP, Unspecified Unknown Completed Univers ity of Formulation [facility] DTaP, Unspecified Unknown Completed Univers ity of Formulation [facility] DTaP, Unspecified Unknown Completed Univers ity of Formulation [facility] DTaP, Unspecified Unknown Completed Univers ity of Formulation [facility] TDAP Unknown Completed [facility] HPV Unknown Completed [facility] HPV Unknown Completed [facility] Influenza Virus Unknown Completed Universit y of Vaccine Quad IM 3+ [facility] TDAP Unknown Completed [facility] TDAP Unknown Completed [facility] Influenza Virus Unknown Completed Universit y of Vaccine Quad .5 mL [place] [facility] IM 6+ [place] Branch (FLUZONE/FLULAVAL/FL UARIX) SARS-COV-2 COVID-19 Unknown Completed Unive rsity of PFIZER VACCINE [facility] SARS-COV-2 COVID-19 Unknown Completed Unive rsity of PFIZER VACCINE [facility] Influenza Virus Unknown Completed Univers[facility] y of Vaccine Quad IM, [place] [facility] Preserv and ABX Free Bran ch 6 MO-64 YRS (FLUCELVAX) MMR Unknown Completed [facility] Varicella Unknown Completed [facility] (varivax)(chicken [place] [facility] pox) Branch Varicella Unknown Completed [facility] (varivax)(chicken [place] [facility] pox) Branch Varicella Unknown Completed [facility] (varivax)(chicken [place] [facility] pox) Branch TDAP Unknown Completed [facility] TDAP Unknown Completed [facility] IPV Unknown Completed [facility] IPV Unknown Completed [facility] IPV Unknown Completed [facility] Pneumococcal 7 Unknown Completed [facility] Conjugate, PCV7 [facility] ical (Prevnar7) Branch MMR Unknown Completed [facility] MMR Unknown Completed [facility] Meningococcal Unknown Completed [facility] (groups A, C, Y and Branc h W-135) conjugate vaccine (MCV4P) Meningococcal Unknown Completed [facility] (groups A, C, Y and Branc h W-135) conjugate vaccine (MCV4P) Haemophilus Unknown Completed [facility] influenzae type b [facility] vaccine, conjugate Branch unspecified formulation Hep B, Adol or Pedi Unknown Completed Unive rsity of Dosage [facility] Hep B, Adol or Pedi Unknown Completed Unive rsity of Dosage [facility] Hep B, Adol or Pedi Unknown Completed Unive rsity of Dosage [facility] DTaP, Unspecified Unknown Completed Univers ity of Formulation [facility] DTaP, Unspecified Unknown Completed Univers ity of Formulation [facility] DTaP, Unspecified Unknown Completed Univers ity of Formulation [facility] DTaP, Unspecified Unknown Completed Univers ity of Formulation [facility] TDAP Unknown Completed [facility] HPV Unknown Completed [facility] HPV Unknown Completed [facility] Influenza Virus Unknown Completed Universit y of Vaccine Quad IM 3+ [place] [facility] TDAP Unknown Completed [facility] TDAP Unknown Completed [facility] Influenza Virus Unknown Completed Universit y of Vaccine Quad .5 mL [place] [facility] IM 6+ [place] Branch (FLUZONE/FLULAVAL/FL UARIX) SARS-COV-2 COVID-19 Unknown Completed Unive rsity of PFIZER VACCINE [facility] SARS-COV-2 COVID-19 Unknown Completed Unive rsity of PFIZER VACCINE [facility] Influenza Virus Unknown Completed Universit y of Vaccine Quad IM, [place] [facility] Preserv and ABX Free Bran ch 6 MO-64 YRS (FLUCELVAX) MMR Unknown Completed [facility] Varicella Unknown Completed University (varivax)(chicken [place] [facility] pox) Branch Varicella Unknown Completed University (varivax)(chicken [facility] edical pox) Branch Varicella Unknown Completed University (varivax)(chicken [facility] edical pox) Branch TDAP Unknown Completed [facility] TDAP Unknown Completed [facility] IPV Unknown Completed [facility] IPV Unknown Completed [facility] IPV Unknown Completed [facility] Pneumococcal 7 Unknown Completed [facility] Conjugate, PCV7 [facility] (Prevnar7) Branch MMR Unknown Completed [facility] MMR Unknown Completed [facility] Meningococcal Unknown Completed [facility] (groups A, C, Y and Branc h W-135) conjugate vaccine (MCV4P) Meningococcal Unknown Completed [facility] [facility] Pol[facility] (groups A, C, Y and Branc h W-135) conjugate vaccine (MCV4P) Haemophilus Unknown Completed [place] of influenzae type b [facility] vaccine, conjugate Branch unspecified formulation Hep B, Adol or Pedi Unknown Completed Unive rsity of Dosage [facility] Hep B, Adol or Pedi Unknown Completed Unive rsity of Dosage [facility] Hep B, Adol or Pedi Unknown Completed Unive rsity of Dosage [facility] DTaP, Unspecified Unknown Completed Univers ity of Formulation [facility] DTaP, Unspecified Unknown Completed Univers ity of Formulation [facility] DTaP, Unspecified Unknown Completed Univers ity of Formulation [facility] DTaP, Unspecified Unknown Completed Univers ity of Formulation [facility] TDAP Unknown Completed [facility] HPV Unknown Completed [facility] HPV Unknown Completed [facility] Influenza Virus Unknown Completed Universit y of Vaccine Quad IM 3+ [facility] YRS Branch TDAP Unknown Completed [facility] TDAP Unknown Completed [facility] Influenza Virus Unknown Completed Universit y of Vaccine Quad .5 mL [facility] IM 6+ MO Branch (FLUZONE/FLULAVAL/FL UARIX) SARS-COV-2 COVID-19 Unknown Completed Unive rsity of P[facility]ZER [facility]ACCINE [facility] SARS-COV-2 COVID-19 Unknown Completed Unive rsity of PFIZER VACCINE [facility] Branch Influenza Virus Unknown Completed Universit y of Vaccine Quad IM, [place] [facility] Preserv and ABX Free Bran ch 6 MO-64 YRS (FLUCELVAX) MMR Unknown Completed [facility] Varicella Unknown Completed University (varivax)(chicken [facility] edical pox) Branch Varicella Unknown Completed University (varivax)(chicken [facility] edical pox) Branch Varicella Unknown Completed University (varivax)(chicken [place] [facility] pox) Branch TDAP Unknown Completed [facility] TDAP Unknown Completed [facility] IPV Unknown Completed [facility] IPV Unknown Completed [facility] IPV Unknown Completed [facility] Pneumococcal 7 Unknown Completed [facility] Conjugate, PCV7 [facility] (Prevnar7) Branch MMR Unknown Completed [facility] MMR Unknown Completed [facility] Meningococcal Unknown Completed [facility] Polysaccharide [facility] (groups A, C, Y and Branc h W-135) conjugate vaccine (MCV4P) Meningococcal Unknown Completed [facility] Polysaccharide [facility] (groups A, C, Y and Branc h W-135) conjugate vaccine (MCV4P) Haemophilus Unknown Completed [facility] influenzae type b [facility] vaccine, conjugate Branch unspecified formulation Hep B, Adol or Pedi Unknown Completed Unive rsity of Dosage [facility] Hep B, Adol or Pedi Unknown Completed Unive rsity of Dosage [facility] Hep B, Adol or Pedi Unknown Completed Unive rsity of Dosage [facility] DTaP, Unspecified Unknown Completed Univers ity of Formulation [facility] DTaP, Unspecified Unknown Completed Univers ity of Formulation [facility] DTaP, Unspecified Unknown Completed Univers ity of Formulation [facility] DTaP, Unspecified Unknown Completed Univers ity of Formulation [facility] TDAP Unknown Completed [facility] HPV Unknown Completed [facility] HPV Unknown Completed [facility] Influenza Virus Unknown Completed Universit y of Vaccine Quad IM 3+ [place] [facility] YRS [facility] TDAP Unknown Completed [facility] TDAP Unknown Completed [facility] Influenza Virus Unknown Completed Universit y of Vaccine Quad .5 mL [facility] IM 6+ MO Branch (FLUZONE/FLULAVAL/FL UARIX) SARS-COV-2 COVID-19 Unknown Completed [facility]ity [facility] SARS-COV-2 COVID-19 Unknown Completed [facility]ity of PFIZER VACCINE [facility] Influenza Virus Unknown Completed Universit y of Vaccine Quad IM, [place] [facility] Preserv and ABX Free Bran ch 6 MO-64 YRS (FLUCELVAX) Varicella Unknown Completed University (varivax)(chicken [place] [facility] pox) Branch Varicella Unknown Completed University (varivax)(chicken [place] [facility] pox) Branch Varicella Unknown Completed University (varivax)(chicken [place] [facility] pox) Branch TDAP Unknown Completed [facility] TDAP Unknown Completed [facility] IPV Unknown Completed [facility] IPV Unknown Completed [facility] IPV Unknown Completed [facility] Pneumococcal 7 Unknown Completed [facility] Conjugate, PCV7 [facility] (Prevnar7) Branch MMR Unknown Completed [facility] MMR Unknown Completed [facility] Meningococcal Unknown Completed [facility] Polysaccharide [facility] (groups A, C, Y and Branc h W-135) conjugate vaccine (MCV4P) Meningococcal Unknown Completed [facility] Polysaccharide [facility] (groups A, C, Y and Branc h W-135) conjugate vaccine (MCV4P) Haemophilus Unknown Completed [facility]ae [facility] unspecified formulation Hep B, Adol or Pedi Unknown Completed Unive rsity of Dosage [facility] Hep B, Adol or Pedi Unknown Completed Unive rsity of Dosage [facility] Hep B, Adol or Pedi Unknown Completed Unive rsity of Dosage [facility] DTaP, Unspecified Unknown Completed Univers ity of Formulation [facility] DTaP, Unspecified Unknown Completed Univers ity of Formulation [facility] DTaP, Unspecified Unknown Completed Univers ity of Formulation [facility] DTaP, Unspecified Unknown Completed Univers ity of Formulation [facility] TDAP Unknown Completed [facility] HPV Unknown Completed [facility] HPV Unknown Completed [facility] Influenza Virus Unknown Completed Universit y of Vaccine Quad IM 3+ [place] [facility] TDAP Unknown Completed [facility] TDAP Unknown Completed [facility] Influenza Virus Unknown Completed Universit y of Vaccine Quad .5 mL [place] [facility] IM 6+ [place] Branch (FLUZONE/FLULAVAL/FL UARIX) SARS-COV-2 COVID-19 Unknown Completed Unive rsity of PFIZER VACCINE [facility] Branch SARS-COV-2 COVID-19 Unknown Completed [facility]ity [facility]ER [facility] Influenza Virus Unknown Completed Universit y of Vaccine Quad IM, [place] [facility] Preserv and ABX Free Bran ch 6 MO-64 YRS (FLUCELVAX) Varicella Unknown Completed [facility] (varivax)(chicken [place] [facility] pox) Branch Varicella Unknown Completed [facility] (varivax)(chicken [place] [facility] pox) Branch Varicella Unknown Completed [facility] (varivax)(chicken [facility] edical pox) Branch TDAP Unknown Completed [facility] TDAP Unknown Completed [facility] IPV Unknown Completed [facility] IPV Unknown Completed [facility] IPV Unknown Completed [facility] Pneumococcal 7 Unknown Completed [facility] Conjugate, PCV7 [facility] (Prevnar7) Branch MMR Unknown Completed [facility] MMR Unknown Completed [facility] Meningococcal Unknown Completed [facility] Polysaccharide [facility] (groups A, C, Y and Branc h W-135) conjugate vaccine (MCV4P) Meningococcal Unknown Completed [facility] Polysaccharide [facility] (groups A, C, Y and Branc h W-135) conjugate vaccine (MCV4P) Haemophilus Unknown Completed [facility]enzae type b [facility], [facility] Branch unspecified formulation Hep B, Adol or Pedi Unknown Completed Unive rsity of Dosage [facility] Hep B, Adol or Pedi Unknown Completed Unive rsity of Dosage [facility] Hep B, Adol or Pedi Unknown Completed Unive rsity of Dosage [facility] DTaP, Unspecified Unknown Completed Univers ity of Formulation [facility] DTaP, Unspecified Unknown Completed Univers ity of Formulation [facility] DTaP, Unspecified Unknown Completed Univers ity of Formulation [facility] DTaP, Unspecified Unknown Completed Univers ity of Formulation [facility] TDAP Unknown Completed [facility] HPV Unknown Completed [facility] HPV Unknown Completed [facility] Influenza Virus Unknown Completed Universit y of Vaccine Quad IM 3+ [facility] Y[place] TDAP Unknown Completed [facility] TDAP Unknown Completed [facility] Influenza Virus Unknown Completed Universit y of Vaccine Quad .5 mL [facility] 6+ MO Branch (FLUZONE/FLULAVAL/FL UARIX) Varicella Unknown Completed University (varivax)(chicken [place] [facility] pox) Branch Varicella Unknown Completed [facility] (varivax)(chicken [place] [facility] pox) Branch Varicella Unknown Completed [facility] (varivax)(chicken [place] [facility] pox) Branch TDAP Unknown Completed [facility] TDAP Unknown Completed [facility] IPV Unknown Completed [facility] IPV Unknown Completed [facility] IPV Unknown Completed [facility] Pneumococcal 7 Unknown Completed [facility] Conjugate, PCV7 [facility] (Prevnar7) Branch MMR Unknown Completed [facility] MMR Unknown Completed [facility] Meningococcal Unknown Completed [facility] Polysaccharide [facility] (groups A, C, Y and Branc h W-135) conjugate vaccine (MCV4P) Meningococcal Unknown Completed [facility] Polysaccharide [facility] (groups A, C, Y and Branc h W-135) conjugate vaccine (MCV4P) Haemophilus Unknown Completed [facility] influenzae type b [facility] vaccine, conjugate Branch unspecified formulation Hep B, Adol or Pedi Unknown Completed Unive rsity of Dosage [facility] Hep B, Adol or Pedi Unknown Completed Unive rsity of Dosage [facility] Hep B, Adol or Pedi Unknown Completed Unive rsity of Dosage [facility] DTaP, Unspecified Unknown Completed Univers ity of Formulation [facility] DTaP, Unspecified Unknown Completed Univers ity of Formulation [facility] DTaP, Unspecified Unknown Completed Univers ity of Formulation [facility] DTaP, Unspecified Unknown Completed Univers ity of Formulation [facility] TDAP Unknown Completed [facility] HPV Unknown Completed [facility] HPV Unknown Completed [facility] Influenza Virus Unknown Completed Universit y of Vaccine Quad IM 3+ [facility] YRS Branch TDAP Unknown Completed [facility] Varicella Unknown Completed [facility] (varivax)(chicken [facility] edical pox) Branch Varicella Unknown Completed [facility] (varivax)(chicken [facility] edical pox) Branch Varicella Unknown Completed [facility] (varivax)(chicken [facility] edical pox) Branch TDAP Unknown Completed [facility] TDAP Unknown Completed [facility] IPV Unknown Completed [facility] IPV Unknown Completed [facility] IPV Unknown Completed [facility] Pneumococcal 7 Unknown Completed [facility] Conjugate, PCV7 [facility] ical (Prevnar7) Branch MMR Unknown Completed [facility] MMR Unknown Completed [facility] Meningococcal Unknown Completed [facility] Polysaccharide [facility] (groups A, C, Y and Branc h W-135) conjugate vaccine (MCV4P) Meningococcal Unknown Completed [facility] Polysaccharide [place] [facility] (groups A, C, Y and Branc h W-135) conjugate vaccine (MCV4P) Haemophilus Unknown Completed [place] of influenzae type b [facility] edical vaccine, conjugate Branch unspecified formulation Hep B, Adol or Pedi Unknown Completed Unive rsity of Dosage [facility] Hep B, Adol or Pedi Unknown Completed Unive rsity of Dosage [facility] Hep B, Adol or Pedi Unknown Completed Unive rsity of Dosage [facility] DTaP, Unspecified Unknown Completed Univers ity of Formulation [facility] DTaP, Unspecified Unknown Completed Univers ity of Formulation [facility] DTaP, Unspecified Unknown Completed Univers ity of Formulation [facility] DTaP, Unspecified Unknown Completed Univers ity of Formulation [facility] Vital Signs Vital Name Observation Time Observation Value Comments Source Systolic blood 2022-11-30 18:32:00 121 mm[Hg] Univer sity of pressure [facility] Diastolic blood 2022-11-30 18:32:00 83 mm[Hg] Unive rsity of pressure [facility] Heart rate 2022-11-30 18:32:00 83 /min [facility] Body temperature 2022-11-30 18:32:00 [facility].72 [facility] 2022-11-30 18:32:00 18 /min [facility] Body height 2022-11-30 18:32:00 167.6 cm [facility] Body weight 2022-11-30 18:32:00 83.915 kg [facility] [place] [facility] BMI 2022-11-30 18:32:00 29.86 kg/m2 [facility] Systolic blood 2022-08-14 16:46:00 113 mm[Hg] Univer sity of pressure [facility] Diastolic blood 2022-08-14 16:46:00 78 mm[Hg] Unive rsity of pressure [facility] Heart rate 2022-08-14 16:46:00 77 /min [facility] Body temperature 2022-08-14 16:46:00 36.78 [facility] [place] [facility] Respiratory rate 2022-08-14 16:46:00 17 /min Univ ers[facility] Body height 2022-08-14 16:46:00 167.6 cm [facility] Body weight 2022-08-14 16:46:00 85.14 kg [facility] BMI 2022-08-14 16:46:00 30.30 kg/m2 [facility] Oxygen saturation in 2022-08-14 16:46:00 99 /min University of Arterial blood by [employer] Pulse oximetry Branch Systolic blood 2022-07-03 17:01:00 108 mm[Hg] Univer sity of pressure [facility] Diastolic blood 2022-07-03 17:01:00 68 mm[Hg] Unive rsity of pressure [facility] Heart rate 2022-07-03 17:01:00 72 /min [facility] Body temperature 2022-07-03 17:01:00 36.78 [facility] [place] [facility] Respiratory rate 2022-07-03 17:01:00 18 /min Univ [facility] Body height 2022-07-03 17:01:00 167.6 cm [facility] Body weight 2022-07-03 17:01:00 87 kg [facility] [place] [facility] BMI 2022-07-03 17:01:00 30.96 kg/m2 [facility] [place] [facility] Oxygen saturation in 2022-07-03 17:01:00 96 /min University of Arterial blood by [employer] o[facility]mane Pulse oximetry Branch Systolic blood 2022-06-15 19:39:00 124 mm[Hg] Univer sity of pressure [facility] Diastolic blood 2022-06-15 19:39:00 81 mm[Hg] Unive rsity of pressure [facility] Heart rate 2022-06-15 19:39:00 76 /min [facility] [place] [facility] Body temperature 2022-06-15 19:39:00 36.39 [facility] [place] [facility] Respiratory rate 2022-06-15 19:39:00 18 /min Univ ers[facility] [place] [facility] Body height 2022-06-15 19:39:00 167.6 cm [facility] [place] [facility] Body weight 2022-06-15 19:39:00 86.183 kg [facility] [place] [facility] BMI 2022-06-15 19:39:00 30.67 kg/m2 [facility] [place] [facility] Oxygen saturation in 2022-06-15 19:39:00 97 /min University of Arterial blood by [facility] Pulse oximetry Branch Systolic blood 2022-06-01 22:15:00 134 mm[Hg] Univer sity of pressure [facility] Diastolic blood 2022-06-01 22:15:00 81 mm[Hg] Unive rsity of pressure [facility] Heart rate 2022-06-01 22:15:00 70 /min [facility] [place] [facility] Respiratory rate 2022-06-01 22:15:00 18 /min Univ ers[facility] [place] [facility] Body height 2022-06-01 22:15:00 167.6 cm [facility] [place] [facility] Body weight 2022-06-01 22:15:00 86.183 kg [facility] [place] [facility] BMI 2022-06-01 22:15:00 30.67 kg/m2 [facility] [place] [facility] Oxygen saturation in 2022-06-01 22:15:00 99 /min [facility] Arterial blood by [place] [facility]e Pulse oximetry Branch Systolic blood 2022-02-28 23:35:00 115 mm[Hg] Univer sity of pressure [facility] Diastolic blood 2022-02-28 23:35:00 64 mm[Hg] Unive rsity of pressure [facility] Heart rate 2022-02-28 23:35:00 68 /min [facility] [place] [facility] [place] Respiratory rate 2022-02-28 23:35:00 16 /min [facility] Oxygen saturation in 2022-02-28 23:35:00 95 /min [facility] Arterial blood by [facility] Pulse oximetry Branch Body temperature 2022-02-28 20:31:00 37.17 [facility] Body height 2022-02-28 20:31:00 172.7 cm [facility] [place] [facility] [place] Body weight 2022-02-28 20:31:00 93.441 kg [facility] [place] [facility] [place] BMI 2022-02-28 20:31:00 31.32 kg/m2 Universi ty of [facility] Systolic blood 2021-10-13 20:48:00 125 mm[Hg] Univer [facility]ity of pressure [place] [facility] [place] Diastolic blood 2021-10-13 20:48:00 85 mm[Hg] Unive rsity of pressure [facility] Heart rate 2021-10-13 20:48:00 94 /min Universi ty of [facility] Body temperature 2021-10-13 20:48:00 36.89 [facility] Body height 2021-10-13 20:48:00 167.6 cm [facility] [place] [facility] [place] Body weight 2021-10-13 20:48:00 93.804 kg [facility] [place] [facility] [place] BMI 2021-10-13 20:48:00 33.38 kg/m2 Universi ty of [facility] Systolic (mm Hg) 2018-04-26 22:29:00 Fidel rial [place]any[place] Diastolic (mm Hg) 2018-04-26 22:29:00 Mem orial [place] Respitory Rate 2018-04-26 22:29:00 Memori al [place] Temperature Oral (F) 2018-04-26 22:29:00 98.0 F [facility] [place] Heart Rate 2018-04-26 22:29:00 [facility] Weight 2018-04-26 20:17:00 [facility] Temperature Oral (F) 2018-04-26 20:17:00 97.9 F [facility] Systolic (mm Hg) 2018-04-26 20:17:00 Fidel rial [place] Diastolic (mm Hg) 2018-04-26 20:17:00 Mem orial [place] Respitory Rate 2018-04-26 20:17:00 Memori al [place] Heart Rate 2018-04-26 20:17:00 [facility] [place] Temperature Oral (F) 2017-10-28 03:00:00 98.5 F [facility] [place] Heart Rate 2017-10-28 03:00:00 [facility] [place] Respitory Rate 2017-10-28 03:00:00 Memori al [place] Systolic (mm Hg) 2017-10-28 03:00:00 Fidel rial [place] Diastolic (mm Hg) 2017-10-28 03:00:00 Mem orial [place] Weight 2017-10-27 23:33:00 [facility] [place] Systolic (mm Hg) 2017-10-27 23:33:00 Fidel rial [place] Diastolic (mm Hg) 2017-10-27 23:33:00 Mem orial [place] BMI Calculated 2017-10-27 23:33:00 Memori al [place] Height 2017-10-27 23:33:00 165.1 cm [facility] Temperature Oral (F) 2017-10-27 23:33:00 97.3 F [facility] [place] Heart Rate 2017-10-27 23:33:00 [facility] [place] Respitory Rate 2017-10-27 23:33:00 Memori al [place] Heart Rate 2016-12-19 04:11:00 [facility] [place] Temperature Oral (F) 2016-12-19 04:11:00 98.4 F [facility] Systolic (mm Hg) 2016-12-19 04:11:00 Fidel rial [place] Diastolic (mm Hg) 2016-12-19 04:11:00 Mem orial [place] Respitory Rate 2016-12-19 04:11:00 Memori al [place] Respitory Rate 2016-12-19 03:30:00 Memori al [place] Systolic (mm Hg) 2016-12-19 03:30:00 Fidel rial Dany[place] Diastolic (mm Hg) 2016-12-19 03:30:00 Mem orial [place] Heart Rate 2016-12-19 03:30:00 [facility] Temperature Oral (F) 2016-12-19 03:30:00 98.3 F [facility] [place] Heart Rate 2016-12-19 01:00:00 [facility] [place] Respitory Rate 2016-12-19 01:00:00 Memori al [place]any[facility] Systolic (mm Hg) 2016-12-19 01:00:00 Fidel Montaño Diastolic (mm Hg) 2016-12-19 01:00:00 Jeanne Montaño Temperature Oral (F) 2016-12-19 01:00:00 98.4 F Shalonda Montaño Weight 2016-12-18 23:30:00 Shalonda Montaño Procedures Procedure Date / Time Performing Clinician Source Performed [facility] PATIENT FINANCIAL 2022-08-14 16:37:52 Doctor Unassigned, No [facility] POLICY Name [facility] POCT MOLECULAR FLU 2022-07-03 17:07:00 Unknown, Attending [facility] POCT MOLECULAR STREP 2022-07-03 17:05:00 Unknown, Attending [facility] PNEUMOCOCCAL 20 2022-06-15 20:42:[address] [facility] CONJUGATE (PREVNAR 20) Medical [place] VACCINE FLU VACC (), 6 2022-06-15 20:42:21 Mart Mccollum [facility] MO-64 YRS, .5ML, IM, Medical [facility] QUAD (FLUCELVAX) ASSIGNMENT OF BENEFITS 2022-06-01 21:41:46 Doctor Unassigned, No [facility] CREATINE KINASE 2022-02-28 20:55:00 Mina Rogel [facility] TEST, SERUM 2022-02-28 20:55:00 Mina Rogel [facility] COMP. METABOLIC PANEL 2022-02-28 20:55:00 Mina Rogel [facility] ([id number]) [facility] CBC WITH DIFF 2022-02-28 20:55:00 Mina Rogel [facility] POCT GLUCOSE 2022-02-28 20:27:00 Doctor Unassigned, No [facility] (AUTOMATED) [facility] Encounters Start End Encounter Admission Attending Care Care Encounter Source Date/Time Date/Time Type Type Clinicians Facility Department ID 2021-04-17 Emergency [facility] [id number] Univers 11:38:55 ity [facility] 2021-04-17 Outpatient P [facility] LOR [id number] Univers 01:53:51 ity of [facility] 2021-04-17 Outpatient P [facility] LOR [id number] Univers 01:27:45 ity of [facility] 2021-04-17 Outpatient P [facility] LOR [id number] Univers 00:54:23 ity of [facility] 2021-04-17 Outpatient P [facility] LOR [id number] Univers 00:52:24 ity of [facility] 2021-04-16 Outpatient P [facility] LOR [id number] Univers 21:25:52 ity of [facility] 2021-04-16 Outpatient P [facility] LOR [id number] Univers 20:56:29 ity of [facility] 2021-04-16 Outpatient P [facility] LOR [id number] Univers 17:57:55 ity of [facility] 2021-04-16 Outpatient P [facility] LOR [id number] Univers 15:36:35 ity of [facility] 2021-04-16 Outpatient P [facility] LOR [id number] Univers 15:23:42 ity of [facility] 2021-04-16 Outpatient P [facility] LOR [id number] Univers 15:23:05 ity of [facility] 2021-04-16 Emergency [facility] [id number] Univers 15:23:04 ity of [facility] 2021-04-16 Outpatient P [facility] LOR [id number] Univers 10:34:16 ity of [facility] 2021-04-16 Outpatient P [facility] LOR [id number] Univers 07:15:10 ity of [facility] 2021-04-16 Outpatient P [facility] LOR [id number] Univers 07:14:52 ity of [facility] 2023-05-18 2023-05-19 [id number] [facility] 15:17:00 12:18:00 Miguel Hardwick [facility] 2023-04-12 2023-04-12 Outpatient R [facility] [id number] Univers 08:00:00 08:00:00 ity of [facility] 2023-01-04 2023-01-04 Outpatient R CHUN, [facility] [id number] Univers 13:00:00 13:00:00 MART alexis [facility] 2022-12-14 2022-12-14 Patient Chun [facility] 1.2.840.114 [id number] Univers 00:00:00 00:00:00 Secure Msg Mart SQUIRES 350.1.13.10 ity of [facility] [place] [phone] Me dical NAL 044 [facility] 2022-12-12 2022-12-12 Outpatient R KATHLEEN [facility] [id number] Univers 14:00:00 14:00:00 KITTY alexis [facility] 2022-12-12 2022-12-12 [facility] 1.2.026.398 [id number] Univers 00:00:00 00:00:00 Secure Msg Kitty BECERRILEDGAR 350.1.13.10 ity of [facility] 4.2.7.2.[place] [phone] Nh dical NAL 134 [facility] 2022-12-08 2022-12-08 Outpatient R KATHLEEN [facility] [id number] Univers 00:00:00 00:00:00 KITTY reuben [facility] 2022-11-30 2022-11-30 Senior Financial Accountant 2, Adc Lab [facility] 1.2.840.114 [id number] Univers 14:30:00 14:45:00 Visit Kitty Wang 350.1.13.10 ity of [facility] 4.2.[place].2.[place] [phone] Nh dical NAL 353 [facility] 2022-11-30 2022-11-30 Outpatient R KATHLEEN [facility] [id number] Univers 14:00:00 14:07:36 KITTY israelcely [facility] 2022-11-30 2022-11-30 Office [facility] 1.2.613.363 [id number] Univers 14:00:00 14:07:36 Visit Kitty SQUIRES 350.1.13.10 i ty of [facility] 4.2.7.2.[place] [phone] Nh dical NAL [address] [facility] 2022-10-07 2022-10-07 [facility] 1.2.840.114 [id number] Univers 00:00:00 00:00:00 Mart SQUIRES 350.1.13.10 i ty of [place].2.7.2.[place] [id number] Nh dical NAL 044 [facility] 2022-08-26 2022-08-26 [facility] 1.2.840.114 [id number] Univers 00:00:00 00:00:00 Mart BECERRILEDGAR 350.1.13.10 i ty of [place].2.7.2.[place] [phone] [facility] 044 [facility] 2022-08-14 2022-08-14 Urgent Martha Johnson [facility] 1.2.840.114 [id number] Univers 10:40:00 11:00:00 Care Unknown, Attending HEALTH 350.1.13.10 ity [facility] 4.2.7.2.686 Filiberto as ASIM?BLEA [phone] [address] MEDICAL OFFICE BUILDING 2022-08-14 2022-08-14 Outpatient R COY [facility] [id number] Univers 10:40:00 10:40:00 MARTHA [facility] 2022-08-14 2022-08-14 Orders Doctor NEVILLE 1.2.840.114 [id number] Univers 00:00:00 00:00:00 Only Unassigned, LAUREN 350.1.13.10 ity of [place] [facility] 4.2.7.2.686 Filiberto as [phone] [address] 2022-08-03 2022-08-03 Outpatient R CHUN [facility] [id number] Univers 11:20:00 11:20:00 MART alexis [facility] 2022-07-04 2022-07-04 Letter KELIN Sterling 1.2.840.114 [id number] Univers 00:00:00 00:00:00 (Out) Torri AGUILAR 350.1.13.10 it y of HOSPITAL 4.2.7.2.686 Filiberto as [phone] [address] 2022-07-03 2022-07-03 Outpatient R CLAUDE [facility] [id number] Univers 11:00:00 11:24:04 RUTHY ity of [facility] 2022-07-03 2022-07-03 Urgent Ruthy Suresh [facility] 1.2.840.114 [id number] Univers 11:00:00 11:24:04 Care Unknown, Attending HEALTH 350.1.13.10 ity of [place] 4.2.7.2.686 Filiberto as ASIM?BLEA [id number] [address] MEDICAL OFFICE [facility] 2022-07-03 2022-07-03 Letter Provider, [facility] 1.2.491.444 [id number] Univers 00:00:00 00:00:00 (Out) Ang HEALTH 350.1.13.10 it y of [facility] [place] 4.2.7.2.686 [place] ASIM?BLEA [phone] [address] OFFICE [facility] 2022-07-03 2022-07-03 Letter Provider, [facility] 1.2.622.272 [id number] Univers 00:00:00 00:00:00 (Out) Ang HEALTH 350.1.13.10 it y of [facility] [place] 4.2.7.2.686 [place] ASIM?BLEA [id number] [address] OFFICE [facility] 2022-06-18 2022-06-18 Patient Doctor KELIN 1.2.840.114 [id number] Univers 00:00:00 00:00:00 Secure Msg Unassigned, LAUREN 350.1.13.10 ity of [place] [facility] 4.2.7.2.686 Filiberto as [id number] [address] 2022-06-17 2022-06-17 Outpatient R CHUN [facility] [id number] Univers 08:00:00 08:00:00 MART itcely of [facility] 2022-06-15 2022-06-15 Outpatient R CHUN [facility] [id number] Univers 13:20:00 14:47:29 MART alexis [facility] 2022-06-15 2022-06-[address] [facility] 1.2.840.114 [id number] Univers 13:20:00 14:47:29 Visit Mart SQUIRES 350.1.13.10 i ty of [place].2.7.2.[place] [phone] Nh dical [facility] 044 [facility] 2022-06-03 2022-06-03 Senior Financial Accountant 2, Adc Lab [facility] 1.2.840.114 [id number] Univers 10:30:00 10:45:00 Visit Mart Mccollum 350.1.13.10 ity of [place].2.7.2.[place] [id number] [facility] 353 [facility] 2022-06-03 2022-06-03 Outpatient R [facility] [id number] Univers 10:30:00 10:30:00 MART reuben [facility] 2022-06-01 2022-06-01 [facility] [id number] Univers 15:40:00 16:55:57 MART reuben [facility] 2022-06-01 2022-06-[address] [facility] 1.2.840.114 [id number] Univers 15:40:00 16:55:57 Visit Mart JONEEDGAR 350.1.13.10 i ty of [place] 4.2.7.2.[place] [phone] [facility] 044 [facility] 2022-06-01 2022-06-01 Orders Doctor NEVILLE 1.2.840.114 [id number] Univers 00:00:00 00:00:00 Only Unassigned, LAUREN 350.1.13.10 ity of [place] [facility] 4.2.7.2.686 Filiberto as [phone] [address] 2022-03-25 2022-03-25 [facility] [id number] Univers 14:00:00 14:00:00 MART reuben [facility] 2022-02-28 2022-02-28 Emergency X MORRICAL, [facility] ERT [id number] Univers 15:27:00 18:41:00 MINA alexis [facility] 2022-02-28 2022-02-28 Emergency Morrical, [facility] 1.2.840.114 [id number] Univers 15:27:00 18:41:00 Mina SQUIRES 350.1.13.10 ity of [facility] 4.2.7.2.686 [place] [phone] [facility] [address] 2022-02-25 2022-02-25 Outpatient R PELON PRINCE [facility] [id number] Univers 14:00:00 14:00:00 PELON PRINCE cely [facility] 2022-02-15 2022-02-15 Ray Kaufman [facility] 1.2.418.889 [id number] Univers 00:00:00 00:00:00 [facility] 350.1.13.10 it y [facility] 4.2.7.2.686 Filiberto as ASIM?BLEA [id number] Nh escobar EY 044 [place] MEDICAL OFFICE BUILDING 2022-02-11 2022-02-11 Outpatient R SHAE [facility] [id number] Univers 08:00:00 08:00:00 MARCK cely [facility] 2022-01-14 2022-01-14 Outpatient R SHAE [facility] [id number] Univers 08:00:00 08:00:00 MARCK [facility] 2022-01-11 2022-01-11 Laboratory Only, Adc Pob2 Test [facility] 1.2 .840.114 [id number] Univers 14:00:00 14:15:00 Only Samantha Tidwell 350.1.13. 10 ity of [facility] 4.2.7.2.686 [place] [facility] [id number] Nh dicmamta [facility] [address] BUILDING 2022-01-11 2022-01-11 Outpatient R OCHOA [facility] [id number] Univers 14:00:00 14:00:00 SAMANTHA alexis [facility] 2022-01-06 2022-01-06 Outpatient Monique KAUFMAN [facility] [id number] Univers 14:00:00 14:00:00 MARCKMAI alexis [facility] 2021-12-23 2021-12-23 Outpatient Monique KAUFMAN [facility] [id number] Univers 14:00:00 14:00:00 MARCK alexis [facility] 2021-12-10 2021-12-10 Outpatient Monique KAUFMAN [facility] [id number] Univers 14:00:00 14:00:00 MARCK alexis [facility] 2021-12-07 2021-12-07 Laboratory Only, Adc Pob2 Test [facility] 1.2 .840.114 [id number] Univers 15:00:00 15:15:00 Only [facility]uster M[facility].1.13 .[facility] [place] [phone] Nh dical [address] 2021-12-07 2021-12-07 Outpatient Monique MERA [facility] [id number] Univers 15:00:00 15:00:00 BUSTER reuben [facility] 2021-12-07 2021-12-07 Letter KELIN Sterling 1.2.840.114 [id number] Univers 00:00:00 00:00:00 (Out) Torri AGUILAR 350.1.13.10 it y [facility] 4.2.7.2.686 Filiberto as [phone] [address] 2021-11-22 2021-11-22 Outpatient Monique KAUFMAN [facility] [id number] Univers 08:00:00 08:00:00 MARCK alexis [facility] 2021-11-11 2021-11-11 Outpatient Monique WANG [facility] [id number] Univers 13:00:00 13:00:00 KITTY alexis [facility] 2021-11-11 2021-11-11 Outpatient Monique WANG [facility] [id number] Univers 13:00:00 13:00:00 KITTY alexis [facility] 2021-11-11 2021-11-11 Outpatient R PIPPASTEPHANYJW [facility] [id number] Univers 13:00:00 13:00:00 KITTY [facility] 2021-11-10 2021-11-10 Outpatient R PIPPASTEPHANYJW [facility] [id number] Univers 10:30:00 10:30:00 KITTY [facility] 2021-10-13 2021-10-13 Outpatient R MALIHA REECE [facility] [id number] Univers 16:00:00 16:09:58 ity of [facility] 2021-10-13 2021-10-13 Office Shanell Maliha [facility] 1.2.172.071 [id number] Univers 16:00:00 16:09:58 Visit Josh SQUIRES 350.1.13.10 i ty [facility] 4.2.7.2.[place] [phone] Nh dical NAL [address] [place] [address] 2021-10-02 2021-10-02 Outpatient R JULIET, [facility] [id number] Univers 09:30:00 09:59:54 ATTENDING ity [facility] 2021-10-02 2021-10-02 Urgent [place], [place] [facility] 1.2.840.1 [id number] Univers 09:30:00 09:59:54 Care Unknown, Attending PEDIATRIC 350.1.13. 10 ity of [place].2.[place] [phone] [place] [address] [address] [facility] 2021-10-02 2021-10-02 Outpatient R RAUL BARRON [facility] [id number] Univers 09:30:00 09:59:[address] [facility] 2021-10-01 2021-10-01 Patient Kathleen [facility] 1..325.037 [id number] Univers 00:00:00 00:00:00 Secure Msg Kitty SQUIRES 350.1.13.10 ity [facility] [place].2.[place] [phone] Nh dical NAL [address] [place] [address] 2021-10-01 2021-10-01 Orders Doctor NEVILLE 1.2.840.114 [id number] Univers 00:00:00 00:00:00 Only Unassigned, LAUREN 350.1.13.10 ity of [place] [facility] 4.2.7.2.686 Filiberto as [phone] [facility] 00[address] [place] 2021-09-20 2021-09-20 Patient Doctor KELIN 1.2.840.114 [id number] Univers 00:00:00 00:00:00 Secure Msg Unassigned, LAUREN 350.1.13.10 ity of [place] [facility] 4.2.7.2.686 Filiberto as [phone] [facility] 019 [place] 2021-09-15 2021-09-15 Telephone [facility] 1.2.840.114 [id number] Univers 00:00:00 00:00:00 Wondiful A HEALTH 350.1.13.10 ity of [place] 4.2.7.2.686 Filiberto as ASIM?BLEA [id number] [address] MEDICAL OFFICE [facility] 2021-09-15 2021-09-15 Orders Doctor KELIN 1.2.840.114 [id number] Univers 00:00:00 00:00:00 Only Unassigned, LAUREN 350.1.13.10 ity of [place] [facility] 4.2.7.2.686 Filiberto as [phone] [address] 2021 2021 Telephone [facility] 1.2.840.114 [id number] [facility] 00:00:00 00:00:00 Wondiful A HEALTH 350.1.13.10 ity of [place] 4.2.7.2.686 Filiberto as ASIM?BLEA [phone] [address] MEDICAL OFFICE [facility] 2021-09-13 2021-09-13 Outpatient R JAZ [facility] [id number] Univers 15:45:00 16:05:58 WONDIFUL ity o f [facility] 2021-09-13 2021-09-13 Office Jaz [facility] 1.2.840.114 [id number] Univers 15:45:00 16:05:58 Visit Wondiful A HEALTH 350.1.13.10 ity of [place] 4.2.7.2.686 Filiberto as ASIM?BLEA [phone] Me dical JT [address] [place] MEDICAL OFFICE [facility] 2021-09-13 2021-09-13 Outpatient R JAZ [facility] [id number] Univers 15:45:00 15:45:00 WONDIFUL ity o f [facility] 2021-09-13 2021-09-13 Telephone Jaz [facility] 1.2.840.114 [id number] Univers 00:00:00 00:00:00 Wondiful A HEALTH 350.1.13.10 ity [facility] 4.2.7.2.686 Filiberto as ASIM?BLEA [phone] Me dical JT 044 [facility] OFFICE [facility] 2021-09-07 2021-09-07 Patient Bony [facility] 1.2.840.114 [id number] Univers 00:00:00 00:00:00 Secure Msg [facility]icoCritical access hospital 350.1.13.10 ity [facility] 4.2.7.2.[place] [facility] [phone] Nh dical NAL 059 [facility] 2021-09-06 2021-09-06 Out[facility] [id number] Univers 08:00:00 23:59:00 BRANDON alexis o [facility] 2021-09-06 2021-09-06 Outpatient R BONY [facility] [id number] Univers 08:00:00 08:00:00 BRANDON alexis o f [facility] 2021-08-19 2021-08-19 Outpatient R MIKAYLA [facility] [id number] Univers 09:00:00 09:51:43 KANIKA ity of [facility] 2021-08-19 2021-08-19 Office Mikayla [facility] 1.2.840.114 [id number] Univers 09:00:00 09:51:43 Visit [facility] SPECIALTY 350.1.13.10 ity of [facility] 4.2.7.2.686 [place] CENTER AT [phone] Nh escobar [facility]CTORY 072 [facility] 2021-08-19 2021-08-19 Outpatient R MIKAYLA [facility] [id number] Univers 09:00:00 09:00:00 KANIKA ity [facility] 2021-08-18 2021-08-18 Case [facility] 1.2.713.194 [id number] Univers 00:00:00 00:00:00 Management Kitty SQUIRES 350.1.13.10 ity of [facility] 4.2.7.2.[place] [phone] [facility] 134 [facility] 2021-08-17 2021-08-17 [facility] 1.2.840.114 [id number] Univers 15:52:19 23:59:00 Encounter Kitty SQUIRES 350.1.13.10 ity of [facility] 4.2.7.2.686 [place] CAMP[place] [id number] [address] 2021-08-17 2021-08-17 Outpatient R [facility] [id number] Univers 15:40:00 16:55:51 BRANDON reuben o [facility] 2021-08-17 2021-08-17 Office [facility] 1.2.840.114 [id number] Univers 15:40:00 16:55:51 Visit Brandon SQUIRES 350.1.13.10 ity of [facility] 4.2.7.2.[place] [phone] [facility] 059 [facility] 2021-08-17 2021-08-17 Outpatient R [facility] [id number] Univers 15:40:00 16:55:51 BRANDON reuben o [facility] 2021-08-17 2021-08-17 Office Pippanyu [facility] 1.2.062.730 [id number] Univers 15:00:00 15:26:02 Visit Kitty SQUIRES 350.1.13.10 i ty of [facility] 4.2.7.2.[place] [phone] [facility] 134 [facility] 2021-08-17 2021-08-17 Outpatient R [facility] [id number] Univers 15:00:00 15:26:02 KITTY ity [facility] 2021-08-172021-08-17 Outpatient R KATHLEEN [facility] [id number] Univers 15:00:00 15:00:00 KITTY alexis [facility] 2021-08-16 2021-08-16 Outpatient R GRUPO [facility] [id number] Univers 10:00:00 11:01:57 JAMILA alexis [facility] 2021-08-16 2021-08-16 Outpatient Monique GRUPO [facility] [id number] Univers 10:00:00 11:01:57 JAMILA alexis [facility] 2021-08-16 2021-08-16 Office [facility] 1.2.925.815 [id number] Univers 10:00:00 11:01:57 Visit Jamila TAVIA 350.1.13.10 i jo [facility] 4.2.7.2.686 Deann reynoso PROFESSIO [phone] Nh dical [address] 2021-08-04 2021-08-04 Outpatient R JAZ [facility] [id number] Univers 11:00:00 11:00:00 WONDIFUL ity o f [facility] 2021-07-30 2021-07-30 Outpatient R JAZ [facility] [id number] Univers 14:15:00 14:15:00 WONDIFUL ity o f [facility] 2021-07-21 2021-07-21 Outpatient Monique LOVETT [facility] [id number] Univers 10:20:00 10:20:00 MAICOJUN ity o [facility] 2021-07-15 2021-07-15 Outpatient R GRUPO [facility] [id number] Univers 13:00:00 13:00:00 JAMILA alexis [facility] 2021-07-13 2021-07-13 Outpatient Monique SEBASTIAN [facility] [id number] Univers 15:00:00 15:00:00 WONDIFUL ity o f [facility] 2021-07-13 2021-07-13 Outpatient Monique SEBASTIAN [facility] [id number] Univers 08:45:00 08:45:00 WONDIFUL ity o f [facility] 2021-07-08 2021-07-08 Outpatient R JAZ [facility] [id number] Univers 11:00:00 11:00:00 WONDIFUL ity o f [facility] 2021-07-03 2021-07-03 Refill Erick [facility] 1.2.840.114 [id number] Univers 00:00:00 00:00:00 h, Tareq HEALTH 350.1.13.10 i ty of [place].2.[place] [phone] [facility] [address] OFFICE BUILDING 2021-06-22 2021-06-22 Patient Doctor KELIN 1.2.840.114 [id number] Univers 00:00:00 00:00:00 Secure Msg Unassigned, LAUREN 350.1.13.10 ity of [place] [facility] 4.2.7.2.686 Filiberto as [phone] [address] 2021-06-10 2021-06-10 Office [facility] 1.2.840.114 [id number] Univers 10:45:00 11:29:49 Visit Wondiful A HEALTH 350.1.13.10 ity of [place] 4.2.7.2.686 Filiberto as ASIM?BLEA [id number] [facility] 0[address] [place] MEDICAL OFFICE BUILDING 2021-06-10 2021-06-10 Outpatient R JAZ [facility] [id number] Univers 10:45:00 11:29:49 WONDIFUL ity o f [facility] 2021-06-10 2021-06-10 Outpatient R JAZ [facility] [id number] Univers 10:45:00 10:45:00 WONDIFUL ity o f [facility] 2021-06-07 2021-06-07 Outpatient R RASHID [facility] [id number] Univers 10:00:00 10:00:00 KATELYN itcely of [facility] 2021-06-03 2021-06-03 Outpatient R JAZ [facility] [id number] Univers 14:30:00 14:30:00 WONDIFUL ity o f [facility] 2021-05-28 2021-05-28 Office [facility] 1.2.840.114 [id number] Univers 15:08:04 15:38:04 Visit LUCY jones 350.1.13.10 ity of [facility] 4.2.7.2.686 [facility] AT [phone] Nh neginmamta BENNETT 072 [facility] 2021-05-28 2021-05-28 Outpatient R [facility] [id number] Univers 15:15:00 15:15:00 ISE, ity of [facility] 2021-05-28 2021-05-28 Outpatient R [facility] 201 [id number] Univers 15:15:00 15:15:00 ISE, ity of [facility] 2021-05-17 2021-05-17 Outpatient R [facility] [id number] Univers 15:15:00 15:15:00 JESSICA alexis [facility] 2021-04-29 2021-04-29 [facility] [id number] Univers 00:00:00 00:00:00 Secure Msg [facility] HEALTH [id number] ity of [place] [id number] Filiberto as ASIM?BLEA [phone] Nh neginmamta WATERS [address] [place] MEDICAL OFFICE [facility] 2021-04-26 2021-04-26 [facility] [id number] Univers 11:14:07 23:59:00 MARCK ity [facility] 2021-04-26 2021-04-26 [facility] [id number] Univers 10:45:00 23:59:00 Encounter Marck SQUIRES [id number] ity of [place]AN [id number] [facility] [id number] [facility] [address] [place] 2021-04-21 2021-04-21 Senior Financial Accountant Lab, Ang - Db [facility] [id number] Univers 09:36:26 09:51:26 Visit Katelyn Mike HEALTH [id number] ity of [place] [id number] Filiberto as ASIM?BLEA [id number] [facility] [address] [place] MEDICAL OFFICE BUILDING 2021-04-21 2021-04-21 Outpatient R RASHID [facility] [id number] Univers 09:30:00 09:30:00 KATELYN alexis [facility] 2021-04-21 2021-04-21 [facility] [id number] Univers 00:00:00 00:00:00 MARCK [facility]lexis [facility] [facility] 2021-04-15 2021-04-15 Patient Doctor KELIN 1.2.840.114 [id number] Univers 00:00:00 00:00:00 Secure Msg Unassigned, LAUREN 350.1.13.10 ity of [facility] 4.2.7.2.686 Filiberto as [phone] [address] 2021-04-14 2021-04-14 Outpatient R [facility] [id number] Univers 10:00:00 10:00:00 ity [facility] 2021-04-09 2021-04-09 [facility] [id number] Univers 13:30:00 13:30:00 MARCK ity [facility] 2021-04-09 2021-04-09 [facility] 1.2.840.114 [id number] Univers 11:11:11 12:46:35 Visit Marck [employer] 350.1.13.10 it y of [place] 4.2.7.2.686 Filiberto as Asim?Blea [phone] [address] Medical Office [facility] 2021-04-09 2021-04-09 Out[facility] [id number] Univers 11:00:00 11:00:00 MARCK alexis [facility] 2021-04-05 2021-04-05 Patient Shae [facility] 1.2.840.114 [id number] Univers 00:00:00 00:00:00 Secure Msg [facility] 350.1.13.10 ity of [place] 4.2.7.2.686 Filiberto as Asim?Blea [phone] Me dicmamta waters 044 [facility] 2021-03-25 2021-03-25 Imm/Inj Nurse, Adc Pob Immunization [facility] 1.2.840.114 [id number] Univers 13:18:30 13:18:38 Visit Buster Mera 350.1.13 .10 ity of [place] [phone] Nh dical nal 421 [facility] 2021-03-25 2021-03-25 Outpatient R [facility] [id number] Univers 08:00:00 08:00:00 BUSTER alexis [facility] 2021-03-10 2021-03-10 Patient [facility] 1.2.840.114 [id number] Univers 00:00:00 00:00:00 Secure Msg Katelyn [facility] 350.1.13.10 ity of [place] 4.2.7.2.686 Filiberto as Asim?Blea [phone] Nh escobar waters 198 [facility] 2021-03-04 2021-03-04 Outpatient R EDE [facility] [id number] Univers 11:30:00 11:30:00 BUSTER alexis [facility] 2021-03-04 2021-03-04 Imm/Inj Nurse, Adc Pob Immunization [facility] 1.2.840.114 [id number] Univers 11:18:59 11:19:06 Visit Buster Mera 350.1.13 .10 ity [facility] [place].2.7.2.[place] [phone] Nh dical nal 421 [facility] 2021-03-04 2021-03-04 Senior Financial Accountant Lab, Ang - Db [facility] 1.2.840.1 14 [id number] Univers 10:52:25 11:07:25 Visit Markc Kaufman 350.1.13.10 ity of [place] 4.2.7.2.686 Filiberto as Asim?Blea [phone] Nh dicmamta waters 353 [facility] 2021-03-04 2021-03-04 Office Shae [facility] 1.2.840.114 [id number] Univers 09:43:19 10:51:29 Visit [facility]ck [facility] 350.1.13.10 it y of [place] 4.2.7.2.686 Filiberto as Asim?Blea [phone] Nh neginmamta kney 044 [place] [facility] 2021-03-04 2021-03-04 Outpatient [facility] [id number] Univers 09:30:00 09:30:00 AMRCK lindycely [facility] 2021-03-04 2021-03-04 Outpatient [facility] [id number] Univers 09:00:00 09:00:00 KATELYN [facility] 2021-01-14 2021-01-14 Urgent FinkLiliana botello 1.2.840.1 14 [id number] Univers 18:13:37 18:28:37 Care Unknown, Attending Pediatric 350.1.13. 10 ity of [place]2.7.2.686 [place] [phone] [place] [address] [facility] 2021-01-14 2021-01-14 Outpatient R JULIET, [facility] [id number] Univers 18:15:00 18:15:00 ATTENDING reuben [facility] 2020-12-14 2020-12-14 Outpatient R JOSEPH ORTIZ [facility] B [id number] Univers 14:30:00 14:30:00 JOSEPH ORTIZ cely [facility] 2020-12-04 2020-12-04 Outpatient R RASHID [facility] [id number] Univers 14:00:00 14:00:00 KATELYN alexis [facility] 2020-11-11 2020-11-11 Telephone [facility] 1.2.740.806 [id number] Univers 00:00:00 00:00:00 Katelyn [facility] 350.1.13.10 i ty of [place] 4.2.7.2.686 Filiberto as Professio [phone] Nh escobar angelo [address] [place] [address] Office Building One 2020-11-10 2020-11-10 Senior Financial Accountant 2, Adc Lab [facility] 1.2.840.114 [id number] Univers 14:10:47 14:25:47 Visit Kitty Wang 350.1.13.10 ity of [place].2.7.2.[place] [phone] Nh dical nal 353 [facility] 2020-11-10 2020-11-10 Office [facility] 1.2.217.841 [id number] Univers 12:59:27 13:29:27 Visit Kitty Squires 350.1.13.10 i ty of [place] 4.2.7.2.686 [place] [phone] Nh dical nal 134 [facility] 2020-11-10 2020-11-10 Outpatient Monique WANG [facility] [id number] Univers 13:00:00 13:00:00 [facility] 2020-11-10 2020-11-10 Orders Doctor KELIN 1.2.840.114 [id number] Univers 00:00:00 00:00:00 Only Unassigned, LAUREN 350.1.13.10 ity of [place] [facility] 4.2.7.2.686 Filiberto as [phone] [facility] 009 [place] 2020-10-22 2020-10-22 Outpatient Monique WANG [facility] [id number] Univers 15:45:00 15:45:00 [facility] 2020-10-12 2020-10-12 Outpatient Monique WANG [facility] [id number] Univers 13:00:00 13:00:00 [facility] 2020-10-09 2020-10-09 [facility] 1.2.840.114 [id number] Univers 09:55:25 23:59:00 Encounter Kitty Squires 350.1.13.10 ity of [place] 4.2.7.2.686 [place] [phone] [facility] 806 [place] 2020-10-09 2020-10-09 Outpatient Monique WANG [facility] [id number] Univers 00:00:00 00:00:00 KITTY ity [facility] 2020-10-09 2020-10-09 Orders Doctor KELIN 1.2.840.114 [id number] Univers 00:00:00 00:00:00 Only Unassigned, LAUREN 350.1.13.10 ity of [place] [facility] 4.2.7.2.686 Filiberto as [phone] [address] 2020-10-05 2020-10-05 Refill [facility] 1.2.267.622 [id number] Univers 00:00:00 00:00:00 Kitty Squires 350.1.13.10 i ty of [place].7.2.[place] [phone] [facility] 134 [facility] 2020-09-30 2020-09-30 Outpatient R KATHLEEN [facility] [id number] Univers 10:15:00 10:15:00 KITTY alexis [facility] 2020-09-28 2020-09-28 Outpatient R KATHLEEN [facility] [id number] Univers 00:00:00 00:00:00 KITTY alexis [facility] 2020-09-28 2020-09-28 [facility] 1.2.827.421 [id number] Univers 00:00:00 00:00:00 Management Kitty Squires 350.1.13.10 ity of [place].2.[place] [phone] [facility] 134 [facility] 2020-09-22 2020-09-22 Senior Financial Accountant 2, Adc Lab [facility] 1.2.840.114 [id number] Univers 11:00:53 11:15:53 Visit Kitty Wang 350.1.13.10 ity of [place] 4.2.7.2.686 [place] [phone] [facility] 353 [facility] 2020-09-22 2020-09-22 Office Kathleen [facility] 1.2.665.831 [id number] Univers 10:00:47 10:55:01 Visit Kitty Squires 350.1.13.10 i ty of [place] 4.2.7.2.686 [place] [phone] Nh dical nal 134 [facility] 2020-09-22 2020-09-22 Outpatient R KATHLEEN [facility] [id number] Univers 09:45:00 09:45:00 KITTY alexis [facility] 2020-09-22 2020-09-22 Letter Lionel [facility] 1.2.840.114 [id number] Univers 00:00:00 00:00:00 (Out) Mo Villalba Tavia 350.1.13.10 ity of [place].2.7.2.[place] [phone] Nh dical nal 092 [facility] 2020-09-22 2020-09-22 Patient Mattjw [facility] 1.2.215.139 [id number] Univers 00:00:00 00:00:00 Secure Msg Kitty SQUIRES 350.1.13.10 ity of [place] 4.2.7.2.686 [place]ESS[place] [phone] Nh dical NAL 134 [facility] 2020-09-08 2020-09-08 Patient Ede [facility] 1.2.840.114 [id number] Univers 00:00:00 00:00:00 Outreach Buster BRIDGES 350.1.13.10 i ty of [facility] 4.2.7.2.686 [place] [phone] Nh dicwi 388 [place] 2020-08-19 2020-08-19 Office [facility] 1.2.241.372 [id number] Univers 14:46:38 15:55:53 Visit Kitty Squires 350.1.13.10 i ty of [place] 4.2.7.2.686 [place] [phone] Nh dical nal 134 [facility] 2020-08-19 2020-08-19 Outpatient Monique WANG [facility] [id number] Univers 14:45:00 14:45:00 KITTY alexis [facility] 2020-08-19 2020-08-19 Outpatient Monique WANG [facility] [id number] Univers 09:00:00 09:00:00 KITTY alexis [facility] 2020-07-20 2020-07-20 Office [facility] 1.2.840.114 [id number] Univers 11:13:24 11:50:35 Visit chanell, Joseph Hwang 350.1.13.10 i ty of [place] 4.2.7.2.686 [place] [phone] [facility] 059 [place] Office Building 2020-07-20 2020-07-20 Outpatient R JOSEPH ORTIZ [facility] B [id number] Univers 11:00:00 11:00:00 JOSEPH ORTIZ [facility] 2020-06-10 2020-06-10 Outpatient [facility] [id number] Univers 14:00:00 14:00:00 KITTY [facility] 2020-06-04 2020-06-04 Office [facility] 1.2.538.962 [id number] Univers 10:32:31 11:02:31 Visit Kittyabad Squires 350.1.13.10 i ty of [place] 4.2.7.2.[address] [facility] [phone] Nh dical [facility] 134 [facility] 2020-06-04 2020-06-04 Outpatient R [facility] [id number] Univers 10:30:00 10:30:00 KITTY [facility] 2020-06-03 2020-06-03 Emergency [facility] 1.2.302.337 [id number] Univers 12:16:00 16:27:00 Thalia Squires 350.1.13.10 ity of [place] 4.2.7.2.686 [place] [phone] [facility] 084 [place] 2020-06-03 2020-06-03 Orders Doctor NEVILLE 1.2.840.114 [id number] Univers 00:00:00 00:00:00 Only Unassigned, LAUREN 350.1.13.10 ity of [place] [facility] 4.2.7.2.686 Filiberto as [phone] [facility] [address] [place] 2020-05-19 2020-05-19 Outpatient R KATHLEEN [facility] [id number] Univers 11:00:00 11:00:00 KITTY cely [facility] 2020-05-13 2020-05-13 Outpatient R KATHLEEN [facility] [id number] Univers 16:30:00 16:30:00 KITTY alexis [facility] 2020-05-13 2020-05-13 Routine Kathleen [facility] 1.2.955.260 [id number] Univers 12:05:33 12:52:00 Kitty Squires 350.1.13.10 ity of Visit [place] 4.2.7.2.686 [place] [phone] Nh dical nal [address] [place] [address] 2020-04-22 2020-04-22 Outpatient P [facility] [id number] Univers 14:45:00 14:45:00 ity of [facility] 2020-04-16 2020-04-19 Hospital Maliha Reece 1.2.840.114 [id number] Univers 14:12:00 11:45:00 Encounter Traci Alvaradomehul Kim AGUILAR 350. 1.13.10 ity of HOSPITAL 4.2.7.2.686 Filiberto as [phone] [address] 2020-04-16 2020-04-16 Routine [facility] 1.2.820.934 [id number] Univers 13:03:48 14:03:06 Josh Squires 350.1.13.10 ity of Visit [place] 4.2.7.2.686 [place] [phone] Nh dic[address] 2020-04-16 2020-04-16 Outpatient R SHANELL MALIHA [facility] [id number] Univers 13:00:00 13:00:00 ity [facility] 2020-04-15 2020-04-15 Outpatient R JOSEPH ORTIZ [facility] B [id number] Univers 10:00:00 10:00:[address] [facility] 2020-04-14 2020-04-14 Hospital [facility] 1..840.114 [id number] Univers 19:54:00 22:35:00 Encounter Josh Squires 350.1.13.10 ity of [place] 4.2.7.2.686 [facility] [phone] [address] 2020-04-12 2020-04-12 [facility] Donnie Salguero [facility] 1.2.8 40.114 [id number] Univers 08:58:00 11:20:00 Encounter Maliha Reece 350.1.13.10 ity of [place] 4.2.7.2.686 [facility] [phone] [address] 2020-04-12 2020-04-12 Outpatient P DONNIE SALGUERO [facility] LOR [id number] Univers 08:58:00 08:58:00 DONNIE SALGUERO [facility] 2020-04-11 2020-04-11 [facility] 1.2.840.114 [id number] Univers 14:50:00 18:45:00 Encounter Donnie Tavia 350.1.13.10 ity of [place] 4.2.7.2.686 [facility] [phone] [address] 2020-04-11 2020-04-11 Telephone Maliha Reece [facility] 1.2.840.114 [id number] Univers 00:00:00 00:00:00 Josh Squires 350.1.13.10 i ty of [place] 4.2.7.2.686 [place] Profess[place] [phone] Nh dical nal [address] [place] [address] 2020-04-02 2020-04-02 Outpatient R KATHLEEN [facility] [id number] Univers 15:00:00 15:00:00 KITTY alexis [facility] 2020-04-02 2020-04-02 Telephone Maliha Reece [facility] 1.2.840.114 [id number] Univers 00:00:00 00:00:00 Josh Squires 350.1.13.10 i ty of [place] 4.2.7.2.686 [place] [phone] Nh dical nal [address] [place] [address] 2020-04-01 2020-04-01 Routine Maliha Reece [facility] 1.2.661.092 [id number] Univers 11:21:25 12:09:21 Cam [place] 350.1.13.10 ity of Visit [place] 4.2.7.2.686 [place] Scionhealthessio [phone] Nh dical [facility] [address] [facility] 2020-04-01 2020-04-01 Outpatient R SHANELL [facility] [id number] Univers 11:30:00 11:30:00 ity of [facility] 2020-04-01 2020-04-01 Outpatient R SHANELL [facility] [id number] Univers 11:15:00 11:15:00 ity of [facility] 2020-04-01 2020-04-01 Outpatient R SHANELL [facility] [id number] Univers 11:15:00 11:15:00 ity of [facility] 2020-04-01 2020-04-01 Orders Doctor NEVILLE 1.2.840.114 [id number] Univers 00:00:00 00:00:00 Only Unassigned, LAUREN 350.1.13.10 ity of [place] [facility] 4.2.7.2.686 Filiberto as [phone] [facility] 009 [place] 2020-03-30 2020-03-30 Office [facility] 1.2.840.114 [id number] Univers 13:56:26 14:39:48 Visit h, [facility] 350.1.13.10 i ty of [place]2.7.2.686 [place] [phone] [facility] 059 [place] Office [facility] 2020-03-30 2020-03-30 Outpatient R [facility] [id number] Univers 14:00:00 14:00:00 ABU-SHARIFEH, TAREQ ity of [facility] 2020-03-24 2020-03-24 [facility] 1.2.840.114 [id number] Univers 15:25:00 18:04:00 Encounter Cam Tavia 350.1.13.10 ity of [place] 4.2.7.2.686 [place] [phone] [facility] 083 [place] 2020-03-24 2020-03-24 Orders Doctor NEVILLE 1.2.840.114 [id number] Univers 00:00:00 00:00:00 Only Unassigned, LAUREN 350.1.13.10 ity of [place] [facility] 4.2.7.2.686 Filiberto as [phone] [address] 2020-03-22 2020-03-22 Hospital [facility] 1.2.840.114 [id number] Univers 15:28:00 18:32:00 Encounter Cam [place] 350.1.13.10 ity of [place] 4.2.7.2.686 [place] [phone] [address] 2020-03-22 2020-03-22 Orders Doctor KELIN 1.2.840.114 [id number] Univers 00:00:00 00:00:00 Only Unassigned, LAUREN 350.1.13.10 ity of [place] [facility] 4.2.7.2.686 Filiberto as [phone] [address] 2020-03-11 2020-03-11 Routine Shanell [facility] 1.2.406.908 [id number] Univers 13:18:58 13:57:28 Cam [place] 350.1.13.10 ity of [place] 4.2.7.2.686 [place] Scionhealthessio [phone] Nh dical [address] 2020-03-11 2020-03-11 Outpatient R MALIHA REECE [facility] [id number] Univers 13:15:00 13:15:00 ity of [facility] 2020-03-04 2020-03-05 [facility] Sia Villa [facility] 1.2.840.114 [id number] Univers 21:55:00 00:10:00 Encounter [place] 350.1.13.10 ity of [place] 4.2.7.2.686 [place] [phone] [address] 2020-03-04 2020-03-04 Orders Doctor KELIN 1.2.840.114 [id number] Univers 00:00:00 00:00:00 Only Unassigned, LAUREN 350.1.13.10 ity of [place] [facility] 4.2.7.2.686 Filiberto as [phone] [address] 2020-02-21 2020-02-21 [facility]ine [facility] 1.2.791.661 [id number] Univers 11:33:53 12:14:53 Kitty Squires 350.1.13.10 ity of Visit [place] 4.2.7.2.686 [facility] [phone] Nh dical [address] 2020-02-21 2020-02-21 Outpatient [facility] [id number] Univers 11:30:00 11:30:00 KITTY ity of [facility] 2020-02-21 2020-02-21 Orders Doctor KELIN 1.2.840.114 [id number] Univers 00:00:00 00:00:00 Only Unassigned, LAUREN 350.1.13.10 ity of [place] [facility] 4.2.7.2.686 Filiberto as [phone] [address] 2020-02-19 2020-02-19 [facility] Maliha Reece [facility] 1.2.840.114 [id number] Univers 14:59:00 16:10:00 Encounter Josh Squires 350.1.13.10 ity of [place] 4.2.7.2.686 [place] [phone] [address] 2020-02-18 2020-02-18 [facility] Maliha Reece [facility] 1.2.840.114 [id number] Univers 18:16:00 20:30:00 Encounter Josh Squires 350.1.13.10 ity of [place] 4.2.7.2.686 [place] [phone] [address] 2020-02-18 2020-02-18 Orders Doctor KELIN 1.2.840.114 [id number] Univers 00:00:00 00:00:00 Only Unassigned, LAUREN 350.1.13.10 ity of [place] [facility] 4.2.7.2.686 Filiberto as [phone] [address] 2020-02-04 2020-02-04 Senior Financial Accountant 2, Adc Lab [facility] 1.2.840.114 [id number] Univers 14:11:06 14:26:06 Visit Maliha Reece Josh Squires 350.1.13.10 ity of [place] 4.2.7.2.686 [place] [phone] [facility] 353 [facility] 2020-02-04 2020-02-04 Outpatient R MALIHA REECE [facility] [id number] Univers 13:00:00 13:00:00 ity of [facility] 2020-02-04 2020-02-04 Case Kathleen [facility] 1.2.686.334 [id number] Univers 00:00:00 00:00:00 Management Kitty Squires 350.1.13.10 ity of [place] 4.2.7.2.686 [place] [phone] Nh dical nal [address] [place] [address] 2020-01-27 2020-01-27 Patient Maliha Reece [facility] 1.2.052.311 [id number] Univers 00:00:00 00:00:00 Secure Msg Josh Becerrilton 350.1.13.10 ity of [place] 4.2.7.2.686 [place] [phone] Nh dical nal [address] [place] [address] 2020-01-24 2020-01-24 Telemedici Maliha Reece [facility] 1.2.840.114 [id number] Univers 08:04:09 10:41:12 ne Visit Josh Squires 350.1.13.10 ity of [place] 4.2.7.2.686 [place] [phone] Nh dical nal [address] [place] [address] 2020-01-24 2020-01-24 Outpatient R MALIHA REECE [facility] [id number] Univers 10:15:00 10:15:00 ity of [facility] 2020-01-24 2020-01-24 Patient Maliha Reece [facility] 1.2.974.549 [id number] Univers 00:00:00 00:00:00 Secure Msg Josh BECERRILTON 350.1.13.10 ity of [facility] 4.2.7.2.686 [place]ESS[place] [phone] Nh dical NAL [address] [place] [address] 2020-01-21 2020-01-21 Hospital Maliha Reece [facility] 1.2.840.114 [id number] Univers 17:22:00 19:54:00 Encounter Cam [place] 350.1.13.10 ity of [place] 4.2.7.2.686 [facility] [phone] [address] 2020-01-21 2020-01-21 Telephone Maliha Reece [facility] 1.2.840.114 [id number] Univers 00:00:00 00:00:00 Cam [place] 350.1.13.10 i ty of [place] 4.2.7.2.686 [place] [phone] Nh dical nal [address] [place] [address] 2020-01-20 2020-01-20 Telephone Maliha Reece [facility] 1.2.840.114 [id number] Univers 00:00:00 00:00:00 Cam [place] 350.1.13.10 i ty of [place] 4.2.7.2.686 [place] [phone] Nh dical nal [address] [place] [address] 2020-01-14 2020-01-14 Orders Doctor KELIN 1.2.840.114 [id number] Univers 00:00:00 00:00:00 Only Unassigned, LAUREN 350.1.13.10 ity of [place] [facility] 4.2.7.2.686 Filiberto as [phone] [address] 2020-01-02 2020-01-02 Hospital Maliha Reece [facility] 1.2.840.114 [id number] Univers 19:25:00 21:17:00 Encounter Cam [place] 350.1.13.10 ity of [place] 4.2.7.2.686 [facility] [phone] [address] 2020-01-02 2020-01-02 Orders Doctor KELIN 1.2.840.114 [id number] Univers 00:00:00 00:00:00 Only Unassigned, LAUREN 350.1.13.10 ity of [place] [facility] 4.2.7.2.686 Filiberto as [phone] [address] 2019-12-31 2019-12-31 Telemedici Maliha Reece [facility] 1.2.840.114 [id number] Univers 08:13:36 14:15:43 ne Visit Cam [place] 350.1.13.10 ity of [place] 4.2.7.2.686 [place] [phone] Nh dical nal [address] [place] [address] 2019-12-31 2019-12-31 Outpatient R MALIHA REECE [facility] [id number] Univers 13:00:00 13:00:00 ity of [facility] 2019-12-27 2019-12-27 Senior Financial Accountant Ultrasound, Adc [facility] 1.2 .840.114 [id number] Univers 14:01:50 15:01:50 Visit Sara Mera [id number] [id number] [phone] N[place] dical [place]al [address] [place] [address] 2019-12-27 2019-12-27 Outpatient R [facility] [id number] Univers 14:00:00 14:00:00 ity of [facility] 2019-12-12 2019-12-12 Case Kathleen [facility] [id number] Univers 00:00:00 00:00:00 Management Kitty Squires [id number] [id number] [phone] N[place] dical [place]al [address] [place] [address] 2019-12-05 2019-12-05 Case Shanell Maliha [facility] [id number] Univers 00:00:00 00:00:00 Management Josh [place] [id number] [id number] [phone] N[place] dical [place]al [address] [place] [address] 2019-12-03 2019-12-03 Initial AdumChristine [facility] 1.2.840.114 [id number] Univers 14:13:53 15:44:36 Maliha Reece Tavia 350.1.13.10 ity of [id number] [phone] Nh dical [place]al [address] [place] [address] 2019-12-03 2019-12-03 Outpatient R MALIHA REECE [facility] [id number] Univers 14:15:00 14:15:00 ity of [facility] 2019-12-03 2019-12-03 Orders Doctor KELIN 1.2.840.114 [id number] Univers 00:00:00 00:00:00 Only Unassigned, LAUREN [id number] ity of [facility] 4.2.7.2.686 Filiberto as [phone] [address] 2019-11-13 2019-11-13 Emergency X Caprice LAZAR [facility] ERT [id number] Univers 15:41:22 19:28:00 ity of [facility] 2019-11-13 2019-11-13 Emergency Caprice Lazar [facility] 1.2.840.114 [id number] Univers 15:41:22 19:28:00 Sunshine Squires [id number] i ty [place] [id number] [place] [facility] [phone] [address] 2019-11-13 2019-11-13 Orders Doctor KELIN 1.2.840.114 [id number] Univers 00:00:00 00:00:00 Only Unassigned, LAUREN 350.1.13.10 ity of [place] [facility] 4.2.7.2.686 Filiberto as [phone] [address] 2019-09-17 2019-09-17 Outpatient Monique [facility] [id number] Univers 13:30:00 13:30:00 WONDIFUL ity o f [facility] 2019-01-15 2019-01-15 [facility] [id number] Univers 15:11:22 15:45:17 Visit Katelyn Hwang 350.1.13.10 i ty of [place] 4.2.7.2.686 Filiberto as Professio [phone] [address] Office Building One 2018-04-26 2018-04-26 Emergency [facility] [id number] Memoria 20:16:00 22:15:00 monique Denny [facility] 2018-04-26 2018-04-26 [facility] [id number] Memoria 20:16:00 22:15:00 monique Denny [facility] 2018-04-26 2018-04-26 Outpatient ERIC RichterJEANETTE [facility] [id number] 14:16:00 16:15:00 Yuri 2017-10-27 2017-10-28 Emergency nullFlavo [facility] [id number] Memoria 23:27:00 03:01:00 r Danyel [facility] 2017-10-27 2017-10-28 Emergency nullFlavo [facility] [id number] Memoria 23:27:00 03:01:00 r [place] [facility] 2017-10-27 2017-10-27 Outpatient Gladys [facility] [id number] 18:27:00 22:01:00 [place] 2017-10-27 2017-10-27 Outpatient Gladys [facility] [id number] 18:27:00 22:01:00 [place] 2016-12-18 2016-12-[address] [facility] [id number] Memoria 23:26:00 04:23:[address] 2016-12-18 2016-12-[address] [facility] [id number] Memoria 23:26:00 04:23:[address] 2016-12-18 2016-12-18 Outpatient Anjel Hood [facility] [id number] 18:26:00 23:23:00 Nick 00 Results Test Description Test Time Test Comments Results Result Comments Source GLUBED 2023-05-19 11:57:00 Test Item Value Reference Range Interpretation Comme nts GLUBED (test code = GLUBED) 102 MG/DL 74-106 N LIPID PROFILE (CORONARY RISK)2023-05-19 05:36:00 Test Item Value Reference Range Interpretation Comments TRIGLYCERIDES (test 70 mg/dL TRIGLYCE RIDES code = TRIG) REFERENCE RANGE:Normal: < 150 mg/dLBorderline High: 150-199 mg/dLHigh: 200- 499 mg/dLVery High: >=500 mg/dL CHOLESTEROL (test 160 mg/dL CHOLESTERO L code = CHOL) REFERENCE RANGE:DESIRABLE : < 200 mg/dLBORDER LINE: 200-239 mg/dLHI GH: >=240 mg/dL HDL CHOLESTEROL (test 36 mg/dL 40-59 L code = HDL) LIPOPROTEIN LDL (test 110.97 mg/dL 32-99 H code = LDLC) CORONARY RISK FACTOR 4.44 CHOL/H DL RISK MALE: (test code = RISK) 1/2 AVG 3 .43 FEMALE: 1/2 AVG 3.27 AV G 4.97 AVG 4.44 2 X AVG 9.55 2X AVG 7. 05 3X AVG 23.39 3X AV G 11.04~~~~~~~~~~ ~~~~~ ~~~~~~~~~~~~~~~ ~~~~~ ~~~~~~~~~~~~~~~ ~~~~~ ~~~~~National Cholesterol Education (NCEP ) Guidelines:~~~~ ~~~~~ ~~~~~~~~~~~~~~~ ~~~~~ ~~~~~~~~~~~~~~~ ~~~~~ ~~~~~~~~~~~ H DL Cholesterol<4 0mg/d L: HDL Choleste rol (Major risk fac tor for CHD)>60mg/d L: HDL Cholesterol (Negative risk factor for CHD)40-59mg/dL: Borderline Risk LDL Cholesterol<1 00mg/ dL: Desirable L DL-C [id number] 0-159 mg/dL: Borderli ne High Risk LDL-C [id number] 0-189 mg/dL: High ris k LDL-C concentra tion HDL-LDL Cholest reji is affected by a number of facto rs suchas smoking, age and sex.~~~~~~~~~~~ ~~~~~ ~~~~~~~~~~~~~~~ ~~~~~ ~~~~~~~~~~~~~~~ ~~~~~ ~~~~ HGBA1C - GLYCOSYLATED [id number] 05:33:00 Test Item Value Reference Range Interpretation Comments GLYCOSYLATED 5.2 % 0-5.9 N Current guideli olena recommend HEMOGLOBIN (HA1C) a treatmen t goal of <7% (test code = GLYHGB) fordiab etic patients. A1c may be overesti mated in diabeticpatient s exhibiting poor control an d who are alsoheterozygou s or homozygous for HgbS or HgbC. Totalglycohemog lobin is a better indicato r of diabetic control inpatie nts with these hemoglobi n variants. [id number] 04:47:00 Test Item Value Reference Range Interpretation Comments GLUBED (test code = GLUBED) 114 MG/DL 74-106 H [id number] 21:33:00 Test Item Value Reference Range Interpretation Comments GLUBED (test code = GLUBED) 86 MG/DL 74-106 N CARDIAC ENZYMES [id number] 20:08:00 Test Item Value Reference Range Interpretation Comments TROPONIN-I < 0.012 ng/mL 0.012-0.033 L (test code = TROPI) Please be advised of the updated ref erence ranges for the new Chemistry instrumentation . VITROS TROPO AIDEE I CRITERIANORM AL PATIENT W/O CIRCULATING TNI: 0.012-0.033 ng/ mLAMI DIAGNOSTIC CUTO FF: >/= 0.120 ng/mL~~~~~~~~~~ ~~~~~~~~~~~~ ~~~~~~~~~~~~~~~ ~~~~~~~~~~~~ ~~~~~~~~~~The u se of serial sampling and te sting protocol is are commended practice.An ana vated troponin level alone is often not suffi cient fordiagnosis of myocardial infarction. Tro ponin results obtaine d by different assay s may vary.Evaluation of the extent of myoca rdial damage based onincreas e of troponin would be valid only if similar methodology is used.~~~~~~~~~~ ~~~~~~~~~~~~ ~~~~~~~~~~~~~~~ ~~~~~~~~~~~~ ~~~~~~~~~~ A PO SITIVE BIAS MAY OCCUR FOR P ATIENTS TAKING BIOTIN SUPPLEMENTS~~~~ ~~~~~~~~~~~~ ~~~~~~~~~~~~~~~ ~~~~~~~~~~~~ ~~~~~~~~~~~~~~~ ~ Spec Comments: Cancel third set if POC Troponin completed in [id number] 13:13:00 Test Item Value Reference Range Interpretation Comments GLUBED (test code = GLUBED) 101 MG/DL 74-106 N CARDIAC ENZYMES [id number] 11:03:00 Test Item Value Reference Range Interpretation Comments TROPONIN-I < 0.012 ng/mL 0.012-0.033 L (test code = TROPI) Please be advised of the updated ref erence ranges for the new Chemistry instrumentation . VITROS TROPO AIDEE I CRITERIANORM AL PATIENT W/O CIRCULATING TNI: 0.012-0.033 ng/ mLAMI DIAGNOSTIC CUTO FF: >/= 0.120 ng/mL~~~~~~~~~~ ~~~~~~~~~~~~ ~~~~~~~~~~~~~~~ ~~~~~~~~~~~~ ~~~~~~~~~~The u se of serial sampling and te sting protocol is are commended practice.An ana vated troponin level alone is often not suffi cient fordiagnosis of myocardial infarction. Tro ponin results obtaine d by different assay s may vary.Evaluation of the extent of myoca rdial damage based onincreas e of troponin would be valid only if similar methodology is used.~~~~~~~~~~ ~~~~~~~~~~~~ ~~~~~~~~~~~~~~~ ~~~~~~~~~~~~ ~~~~~~~~~~ A PO SITIVE BIAS MAY OCCUR FOR P ATIENTS TAKING BIOTIN SUPPLEMENTS~~~~ ~~~~~~~~~~~~ ~~~~~~~~~~~~~~~ ~~~~~~~~~~~~ ~~~~~~~~~~~~~~~ ~ Spec Comments: Cancel third set if POC Troponin completed in ED- DUP EXTRACRANIAL [id number] 10:46:00 [facility] : 1995 Sex: F FAX:Tj Quesada MD [place]: St: ADM FAX: Cleopatra Hameed [phone] Name: NAZIA VALADEZ [facility] : 1995 Age/S: 27/F [address] Unit #: [id number] Loc: [place] [address] Phys: Cleopatra Hameed ADMISSIONS ASSISTANT Acct: [id number] Dis Date: Status: ADM IN PHONE #: [phone] Exam Date: 05/18/2023 1041FAX #: [phone] Reason: cva/tia,r side weakness, paresthesia, KELLER EXAMS: CPT CODE: [id number] DUPEXTRACRANIAL RENETTA 60889 CLINICAL INFORMATION: CVA, TIA, right-sided weakness. Headaches. Dictation location: A 1 Comparison: No prior available at this time. Technique: Real-time grayscale study was done with duplex color Doppler and spectral analysis. FINDINGS: The common carotid arteries, bifurcations, and the internal and external carotid runoff is maintained. There is no significant plaque identified. No hemodynamically significant lesion, aneurysm or significant tortuosity. ICA/CCA ratios were w ithin normal limits. Vertebral flow was antegrade bilaterally. IMPRESSION: No hemodynamically significant lesion, aneurysm or vasculitis identified. at 1046 Reported and signed by: Nick Agee MD CC: Tj Quesada MD; Cleopatra Hameed NP Technologist: CLAY Edgar Trnscrd Date/Time/By: 05/18/2023 (1046) : By: [email or web address] PAGE 1 Signed Report FAX: Tj Quesada MD [place]: St: [facility] FAX: Cleopatra Hameed [phone] Name: NAZIA VALADEZ [facility] : 1995 Age/S: 27/F [address] Unit #: [id number] Loc: C[address] [place] [address] Phys: Cleopatra Hameed ADMISSIONS ASSISTANT Acct: [id number] Dis Date: Status: ADM IN PHONE #: [phone] Exam Date: 1041 FAX #: [phone] Reason: cva/tia,r side weakness, paresthesia, KELLER EXAMS: CPT CODE: [id number] DUP EXTRACRANIAL RENETTA 76920 (Continued) Orig Print D/T: S: 05/18/2023 (1049) PAGE 2 Signed Report- MRI C-SPINE W W/O [id number] 09:36:00[facility] : 1995 Sex: F FAX:Tj Quesada MD [place]: St: ADM FAX: Cleopatra Hameed [phone] Name: NAZIA VALADEZ [facility] : 1995 Age/S: 27/F [address] Unit #: [id number] Loc: C.[address] [address] Phys: Cleopatra Hameed ADMISSIONS ASSISTANT Acct: [id number] Dis Date: Status: ADM IN PHONE #: [phone] Exam Date: 05/18/2023 0630FAX #: [phone] Reason: right side weakness,paresthesia, cva vs nerve c EXAMS: CPT CODE: [id number] MRI C-SPINE W W/O CONT 21082 Dictation location: U19. MRI CERVICAL SPINE WITHOUT AND WITH CONTRASTHISTORY: Right-sided weakness, paresthesias was TECHNIQUE: Multiplanar and multiple pulse sequences w ere obtained through the cervical spine without contrast. COMPARISON: CT Cervical spine 05/17/23. FINDINGS: The vertebral alignment is straightened. The C1-C2 relation and craniocervical junction are preserved. No signal intensity changes are present in the spinal cord. At the C2-C3 level, no spinal canal stenosis or neuroforaminal narrowing. At the C3-C4 level, no spinal canal stenosis or neuroforaminal narrowing. At the C4-C5 level, 2 mm central disc protrusion causes no significant spinal canal stenosis or neuroforaminal narrowing. At the C5-C6 level, minimal posterior bulging annulus causes no spinal canal stenosis or neuroforaminal narrowing. At the C6-C7 level, minimal posterior bulging annulus causes no spinal canal stenosis or neuroforaminal narrowing. At the C7-T1 level, no spinal canalstenosis or neuroforaminal narrowing. The signal intensity of the vertebral bodies is normal. Postcontrast images show no abnormal enhancement. IMPRESSION: Minimal to mild cervical spondylosis without significant spinal canal PAGE 1 Signed Report (CONTINUED) FAX: Tj Quesada MD [place]: St: ADM FAX: Cleopatra Hameed [phone] Name: NAZIA VALADEZ [facility] : 1995 Age/S: 27/F [address] Unit #: [id number] Loc: [address] [address] Phys: Cleopatra Hameed ADMISSIONS ASSISTANT Acct: [id number] Dis Date: Status: ADM IN PHONE #: [phone] Exam Date: 05/18/2023629 FAX #: [phone] Reason: right side weakness,paresthesia, cva vs nerve c EXAMS: CPT CODE: [id number] MRI C-SPINE W W/O CONT 16410 (Continued) stenosis or neuroforaminal narrowing. Electronically Signed by Jeanie Mohan MD on05/18/2023 at 0936 Reported and signed by: Jeanie Mohan MD CC: Tj Quesada MD; Cleopatra Hameed NP Technologist: Anand Herrera Trnvinitard Date/Time/By: 05/18/2023 (0936) : By: [email or web address] PAGE 2 Signed Report FAX: Tj Quesada MD [place]: St: ADM FAX: Cleopatra Hameed [phone] ----- Name: NAZIA VALADEZ [facility] : 1995 Age/S: 27/F [address] Unit #: [id number] Loc: [address] [address] Phys: Cleopatra Hameed NP Acct: [id number] Dis Date: Status: ADM IN PHONE #: [phone] Exam Date: 05/18/2023629 FAX #: [phone] Reason: right side weakness,paresthesia, cva vs nerve c EXAMS: CPT CODE: [id number] MRI C-SPINE W W/O CONT 87787 (Continued) Orig Print D/T: S: 05/18/2023 (0939) PAGE 3 Signed Report- MRI L-SPINE W WO CON 2023-05-18 09:33:00 [facility] : 1995 Sex: F FAX:Tj Quesada MD [place]: St: ADM FAX: HameedMonicacely Dejesus [phone] Name: NAZIA VALADEZ [facility] : 1995 Age/S: 27/F [address] Unit #: [id number] Loc: [address] [address] Phys: Cleopatra Hameed ADMISSIONS ASSISTANT Acct: [id number] Dis Date: Status: ADM IN PHONE #: [phone] Exam Date: 05/18/2023629 FAX #: [phone] Reason: right side weakness,paresthesia, cva vs nerve c EXAMS: CPT CODE: [id number] MRI L-SPINE W WO CON 52063 Dictation location: U19. MRI LUMBAR SPINE WITHOUT AND WITH CONTRAST. HISTORY: Right side weakness,paresthesia, cva vs nerve compression. TECHNIQUE: Multiplanar and multiplepulse sequences were obtained through the lumbar spine without and with gadolinium. COMPARISON: NoneFINDINGS: Motion artifact limits assessment. 5 nonrib-bearing lumbar vertebral bodies are presumed with the first conical shaped vertebral body designated S1. Lumbar vertebral alignment is within normal limits. The conus medullaris terminates at T12-L1. No signal intensity changes are present within the conus medullaris or cauda equina. Disc desiccation is noted at L3-L4. At the L1-L2 level, no spinal canal stenosis or neuroforaminal narrowing. At the L2-L3 level, no spinal canal stenosis or neuroforaminal narrowing. At the L3-L4 level, posterior bulging annulus and bilateral facet arthrosis causesup to mild spinal canal stenosis without neuroforaminal narrowing. At the L4-L5 level, minimal posterior bulging annulus and bilateral facet arthrosis causes no significant spinal canal stenosis or neuroforaminal narrowing. At the L5-S1 level, bilateral facet arthrosis causes no significant spinal canal stenosis or neuroforaminal narrowing. The signal intensities within the vertebral bodies are normal. IMPRESSION: Lumbar spondylosis with up to mild spinal canal stenosis. PAGE 1 Signed Report (CONTINUED) FAX: Tj Quesada MD [place]: [facility]: ADM FAX: Cleopatra Hameed [phone] Name: NAZIA VALADEZ [facility] : 1995 Age/S: 27/F [address] Unit #: [id number] Loc: [address] [address] Phys: Cleopatra Hameed NP Acct: [id number] Dis Date: Status: ADM IN PHONE #: [phone] Exam Date: 05/18/2023629 FAX #: [phone] Reason: right side weakness,paresthesia, cva vs nerve c EXAMS: CPT CODE: [id number] MRI L-SPINE W WO CON 12254 (Continued) at 0933 Reported and signed by: Jeanie Mohan MD CC: Tj Quesada MD; Cleopatra Hameed NP Technologist: Anand Herrera [facility] Date/Time/By: 05/18/2023 (0933) : By: [email or web address] PAGE 2 Signed Report FAX: Tj Quesdaa MD [place]: [facility]: ADM FAX: Cleopatra Hameed [phone] Name: NAZIA VALADEZ [facility] : 1995 Age/S: 27/F [address] Unit #: [id number] Loc: [address] [address] Phys: Cleopatra Hameed ADMISSIONS ASSISTANT Acct: [id number] Dis Date: Status: ADM IN PHONE #: [phone] Exam Date: 05/18/2023629 FAX #: [phone] Reason: right side weakness,paresthesia, cva vs nerve c EXAMS: CPT CODE: [id number] MRI L-SPINE W WO CON 79758 (Continued) Orig Print D/T: S: 05/18/2023 (0936) PAGE 3 Signed Report- MRI T-SPINE W W/O [id number] 09:29:00 [facility] : 1995 Sex: F FAX:Tj Quesada MD [place]: St: ADM FAX: Cleopatra Haemed [phone] Name: NAZIA VALADEZ [facility] : 1995 Age/S: 27/F [address] Unit #: [id number] Loc: [address] [place] [address] Phys: Cleopatra Hameed NP Acct: [id number] Dis Date: Status: ADM IN PHONE #: [phone] Exam Date: 05/18/2023629 FAX #: [phone] Reason: right side weakness,paresthesia, cva vs nerve c EXAMS: CPT CODE: [id number] MRI T-SPINE W W/O CONT 22617 Dictation location: U19. MRI THORACIC SPINE WITHOUT AND WITH CONTRAST HISTORY:right side weakness,paresthesia, cva vs nerve compressio COMPARISON:None. TECHNIQUE: Multiplanar and multiple pulse sequences of the thoracic spine were obtained without and with contrast. FINDINGS: The thoracic vertebral alignment is satisfactory without evidence of a fracture or subluxation. No prevertebral soft tissue swelling. Degenerative changes noted in the mid to lower thoracic spine with disc space narrowing and minimal posterior bulging annulus without significant spinal canal stenosis or neuroforaminal narrowing. The spinal cord terminates towards L1. No cord signal changes. Noabnormal enhancement. IMPRESSION: Mild thoracic spondylosis without significant spinal canal stenosis or neuroforaminal narrowing. Electronically Signed by Jeanie Mohan MD on 3at 0929 Reported and signed by: Jeanie Mohan MD CC: Tj Quesada MD; Cleopatra Hameed NP Technologist: Anand Herrera Trnscrd Date/Time/By: 05/18/2023 (928) : By: [email or web address] PAGE 1 Signed Report FAX: Tj Quesada MD [place]: St: ADM FAX: Cleopatra Hameed [phone] Name: ALLYSONNAZIA [facility] : 1995 Age/S: 27/F [address] Unit #: [id number] Loc: [place] [address] Phys: Cleopatra Hameed ADMISSIONS ASSISTANT Acct: [id number] Dis Date: Status: ADM IN PHONE #: [phone] Exam Date: 629 FAX #: [phone] Reason: right side weakness,paresthesia, cva vs nerve c EXAMS: CPT CODE: [id number] MRI T-SPINE W W/O CONT 54063 (Continued) Orig Print D/T: S: 05/18/2023 (0933) PAGE 2 Signed ReportUA RFLX MICR CULT IF [id number] 07:47:00 Test Item Value Reference Range Interpretation Comments UA COLOR (test code Yellow Yellow = COLU) UA APPEARANCE (test Cloudy Clear A code = APPU) UA GLUCOSE DIPSTICK Negative Negative (test code = DGLUU) UA BILIRUBIN 1+ Negative A DIPSTICK (test code = BILU) UA KETONE DIPSTICK Negative mg/dL Negative (test code = KETU) UA SPECIFIC GRAVITY 1.032 <1.030 A (test code = SGU) UA BLOOD DIPSTICK Negative Negative (test code = NICKY) UA PH DIPSTICK (test 7.0 5.0-8.0 code = GABINO) UA PROTEIN DIPSTICK 100 (2+) mg/dL Negative A (test code = PROU) UA UROBILINOGEN 4.0 mg/dL Negative A DIPSTICK (test code = URO) UA NITRITE DIPSTICK Negative Negative (test code = TARA) UA LEUKOCYTE 2+ Negative A ESTERASE DIPSTICK (test code = LEUU) UA WBC (test code = >100 /HPF See_Comment A >10 WBC/ HPF = WBCUR) PYURIA PRESENT URINE CULTURE PROCESSED [Automated message] The system which generated this result transmit jeromy reference range : <4-5. The reference range was not used to interpret this result as normal/abnormal . UA RBC (test code = 6-10 /HPF See_Comment A [Automa jeromy RBCU) message] The system which generated this result transmit jeromy reference range : <4-5. The reference range was not used to interpret this result as normal/abnormal . UA BACTERIA (test 2+ /HPF None-Rare A code = BACU) UA SQUAMOUS CELLS 6-15 (FEW) /HPF See_Comment A [Autom ated (test code = SQU) message] T he system which generated this result transmit jeromy reference range : 0-5 (RARE). The reference range was not used to interpret this result as normal/abnormal . UA MUCUS (test code 4+ /LPF See_Comment A [Automa jeromy = MUCU) message] The system which generated this result transmit jeromy reference range : <Rare. The reference range was not used to interpret this result as normal/abnormal . Indication for culture: Dysuria/FrequencySOURCE OF URINE: VOIDEDUR HCG QUAL 2023-05-18 07:19:00 Test Item Value Reference Range Interpretation Comments UR HCG QUAL (test code = HCGQLU) NEGATIVE NEGATIVE - MRI BRAIN W/O [id number] 05:21:00 [facility] : 1995 Sex: F FAX:Tj Quesada MD [place]: St: [facility] FAX: Cleopatra Hameed [phone] Name: NAZIA VALADEZ [facility] : 1995 Age/S: 27/F [address] Unit #: [id number] Loc: [address] [address] Phys: Cleopatra Hameed ADMISSIONS ASSISTANT Acct: [id number] Dis Date: Status: ADM IN PHONE #: [phone] Exam Date: 05/18/2023 0450FAX #: [phone] Reason: Ischemic Stroke EXAMS: CPT CODE: [id number] MRI BRAIN W/O CONTRAST 96404 EXAM: - MRI BRAIN W/O CONTRAST LOCATION: H57 HISTORY: 27 years-year old Female with Ischemic Stroke TECHNIQUE: Multiplanar multisequence MR images of the brain were obtained without intravenous contrast. COMPARISON: None FINDINGS: No abnormal brain parenchymal signal. There is no mass, mass effect or abnormal extra-axial fluid collection. Diffusion-weighted images show no hyperacute, acute or early subacute infarction. The ventricles are normal in size, shape, and position. There are normal signal voids in the larger intracranial vessels. The paranasal sinuses and mastoid air cells are predominantly clear. The marrow signal pattern is within normal limits. IMPRESSION: No significant intracranial abnormalities. at 0521 Reported and signed by: Donnie Monaco MD CC: Tj Quesada MD; Cleopatra Hameed NP Technologist: Anand Herrera Trnvard Date/Time/By: 05/18/2023 (0521) : By: [email or web address] PAGE 1 Signed Report FAX: Tj Quesada MD [place]: St: [facility] FAX: Cleopatra Hameed [phone] Name: NAZIA VALADEZ [facility] : 1995 Age/S: 27/F [address] Unit #: [id number] Loc: C.[address] [place] [address] Phys: Cleopatra Hameed NP Acct: [id number] Dis Date: Status: ADM IN PHONE #: [phone] Exam Date: 05/18/2023 0450 FAX #: [phone] Reason: Ischemic Stroke EXAMS: CPT CODE: [id number] MRI BRAIN W/O CONTRAST 85186 (Continued) OrigPrint D/T: S: 05/18/2023 (0634) PAGE 2 Signed ReportGLUBED 2023-05-18 04:57:00 Test Item Value Reference Range Interpretation Comments GLUBED (test code = GLUBED) 105 MG/DL 74-106 N BASIC METABOLIC [id number] 03:05:00 Test Item Value Reference Range Interpretation Comments SODIUM (test code = 136 mmol/L 137-145 L NA) POTASSIUM (test 3.7 mmol/L 3.4-5.0 N code = K) CHLORIDE (test code 103 mmol/L 98-107 N = CL) CARBON DIOXIDE 26 mmol/L 22-30 N (test code = CO2) ANION GAP (test 11 code = GAP) GLUCOSE (test code 95 mg/dL 74-106 N = GLU) BLOOD UREA NITROGEN 9 mg/dL 7-17 N (test code = BUN) GLOMERULAR 128 mL/min The Glomerular FILTRATION RATE Filtration R ate is a (test code = GFR) calculated parameterbased on serum Creatinine, pat ient age and sex. GFR va luesless than 60 mL/min/ 1.73 square meters a re indicative ofCh ronic Kidney Disease. Values less than 15 mL/min/1.73squa re meters indicate Kidney failure. The calculation for GFR is based on the CK D-EPI (2020) calculat ion. This formulais race indifferent and is the recommended for zenon for GFRby the Natio nal Kidney Foundati on for Adults.The GFR will not calculate if th e sex is unknown or if thepatient's ag e is <18 years. CREATININE (test 0.6 mg/dL 0.5-1.0 N code = CREAT) CALCIUM (test code 8.9 mg/dL 8.4-10.2 N = CA) INDEX HEMOLYSIS 16 Index/DL 0-100 N (test code = HEMINDEX) [id number] 03:05:00 Test Item Value Reference Range Interpretation Comments PHOSPHOROUS (test code = PHOS) 4.0 mg/dL 2.5-4.5 N [id number] 03:05:00 Test Item Value Reference Range Interpretation Comments MAGNESIUM (test code = MAG) 2.0 mg/dL 1.6-2.3 N TSH REFLEX TO [id number] 03:05:00 Test Item Value Reference Range Interpretation Comments TSH REFLEX TO FT4 2.750 MIU/L 0.465-4.68 N (test code = TSHREFLEX) *A positive bias m ay occur for patie nts taking BIOTINsupplemen ts. NT PRO-BRAIN NATRIURETIC [id number] 03:05:00 Test Item Value Reference Range Interpretation Comments NT PRO-BRAIN < 20.0 See_Comment L INTERPRETATION OF RESULTS NATRIURETIC PEPTI pg/mL Results of this test (test code = should be used in PROBNP) accordance with the appropriate cli nical guidelines and in conjunction wit h clinical presentation an d other diagnostic test s. Clinical guidelines brad mmend using natriuretic pep tides in both Emergency Department (ED) and outpat ient settings for di agnosis or exclusion of he art failure (HF). The perfo rmance of the VITROS NT-p roBNP II test was evalua jeromy separately in e ach of these settings using published age-i ndependent and age-depende nt cutoffs. EMERGENCY DEPAR TMENT SETTINGS/INPATI ENT: For patients presen ting to the ED settings wit h acute or worsening dyspn ea and clinical suspic ion of HF, the VITROS NT-p roBNP II test results sh ould be interpreted as indicatedin the table below . ========Results (pg/mL) Age Group *Interpre tation <300 All *Negative: Heart Failure Unlikel y >=450 22-<50 * POSITI VE: Heart Failure >=900 5 0-<75 Likely >=1800 > =75 --------OUTPATI ENT SETTINGS: In e outpatient sett ings, the optimal use of natriuretic peptides is to exclude HF. Therefore, a lo wer rule-out cutoff which increases sensi tivity and negative predic tive value is needed, as p atients can present with li mited, less acute HF sympto ms. For ambulatory ancelmo ents presenting to o utpatient facilitieswith clinical suspicion of HF not previously diag nosed andat least one sign, symptom or risk factor for HF, the VITROSNT-proBNP II test results should be interpreted as indicatedin the table below : Results(pg/mL) Age Group *Interpretation <125 ALL * Negative - Hear t Failure Unlikely >=125 ALL * Consider Heart Failure as well as other c auses of NT-ProBNP elvation. The following inter ferents causes a bias a t concentrationsl isted in procedure. -Cef oxitin sodium -Sodium Azide [ Automated message] The sy stem which generated this result transmitted ref erence range: <20.0-95 .3. The reference range was not used to interpr et this result as mayuri l/abnormal. CARDIAC ENZYMES [id number] 03:05:00 Test Item Value Reference Range Interpretation Comments TROPONIN-I < 0.012 ng/mL 0.012-0.033 L (test code = TROPI) Please be advised of the updated ref erence ranges for the new Chemistry instrumentation . VITROS TROPO AIDEE I CRITERIANORM AL PATIENT W/O CIRCULATING TNI: 0.012-0.033 ng/ mLAMI DIAGNOSTIC CUTO FF: >/= 0.120 ng/mL~~~~~~~~~~ ~~~~~~~~~~~~ ~~~~~~~~~~~~~~~ ~~~~~~~~~~~~ ~~~~~~~~~~The u se of serial sampling and te sting protocol is are commended practice.An ana vated troponin level alone is often not suffi cient fordiagnosis of myocardial infarction. Tro ponin results obtaine d by different assay s may vary.Evaluation of the extent of myoca rdial damage based onincreas e of troponin would be valid only if similar methodology is used.~~~~~~~~~~ ~~~~~~~~~~~~ ~~~~~~~~~~~~~~~ ~~~~~~~~~~~~ ~~~~~~~~~~ A PO SITIVE BIAS MAY OCCUR FOR P ATIENTS TAKING BIOTIN SUPPLEMENTS~~~~ ~~~~~~~~~~~~ ~~~~~~~~~~~~~~~ ~~~~~~~~~~~~ ~~~~~~~~~~~~~~~ ~ [id number] 02:12:00 Test Item Value Reference Range Interpretation Comments D-DIMER (test 273 ng/mLFEU 0-500 N THE DDIMER MET HOD IS USED IN code = THE EXCLUSION O F DEEP DDIMER) VEINTHROMBOSIS AND/OR PULMONARY EMBOL ISM AND THE CLINICAL CUT-OF F VALUE FOR EXCLUSION (500 NG/ML FEU) OF THESE CONDITION SIS VALIDATED BY THE MANUFACT URER OF THE METHOD. A NEGAT MELINDA DDIMER RESULT WHEN COM BINED WITH A CLINICALASSESSM ENT OF LOW PRETEST PROBABI LITY HAS BEEN SHOWN TO HAVEA HIGH NEGATIVE PREDICTIVE VALU E OF DVT OR PE. D-DIMER MARY UES >500 ng/mL ARE NOT D IAGNOSTIC FOR DVT,PEOR DIC WI THOUT OTHER CONFIRMATORY TE STS AND APPROPRIATECLIN ICAL EVALUATIONS. CBC W/AUTO [id number] 02:01:00 Test Item Value Reference Range Interpretation Comments WHITE BLOOD CELL (test code = 6.9 x10 3/uL 5.0-12.0 N WBC) RED BLOOD CELL (test code = 3.78 x10 6/uL 4.20-5.40 L RBC) HEMOGLOBIN (test code = HGB) 10.9 g/dL 12.0-16.0 L HEMATOCRIT (test code = HCT) 33.1 % 36.0-46.0 L MEAN CELL VOLUME (test code = 88 fL 81-99 N MCV) MEAN CELL HGB (test code = MCH) 28.8 pg 27-31 N MEAN CELL HGB CONCENTRATION 32.9 g/dL 33-37 L (test code = MCHC) RED CELL DISTRIBUTION WIDTH 12.1 % 11.5-15.5 N (test code = RDW) PLATELET COUNT (test code = 278 x10 3/uL 130-400 N PLT) MEAN PLATELET VOLUME (test code 9.9 fL 9.4-16.4 N = MPV) NEUTROPHIL % (test code = NT%) 45.7 % 43-65 N IMMATURE GRANULOCYTE % (test 0.3 % 0.0-2.0 N code = IG%) LYMPHOCYTE % (test code = LY%) 41.5 % 20.5-45.5 N MONOCYTE % (test code = MO%) 9.4 % 5.5-11.7 N EOSINOPHIL % (test code = EO%) 2.5 % 0.9-2.9 N BASOPHIL % (test code = BA%) 0.6 % 0.2-1.0 N NUCLEATED RBC % (test code = 0.0 % 0-1.0 N NRBC%) NEUTROPHIL # (test code = NT#) 3.17 x10 3/uL 2.2-4.8 N IMMATURE GRANULOCYTE # (test 0.02 x10 3/uL 0-0.03 N code = IG#) LYMPHOCYTE # (test code = LY#) 2.87 x10 3/uL 1.3-2.9 N MONOCYTE # (test code = MO#) 0.65 x10 3/uL 0.3-0.8 N EOSINOPHIL # (test code = EO#) 0.17 x10 3/uL 0.0-0.2 N BASOPHIL # (test code = BA#) 0.04 x10 3/uL 0.0-0.1 N - CT CHEST W/O [id number] 16:36:00 [facility] : 1995 Sex: F [place]: YOHANNES St: REG -- Name: NAZIA VALADEZ [place] : 1995 Age/S: 27/F [address] [facility] Unit: [id number] Loc:[place], [place] [address] Phys: Marvin Aquino MD Acct: [id number] Dis Date: Status: REG ER PHONE #: Exam Date: 05/17/2023 1520 FAX #: Reason: R upper ext weakness, R upper chest wall pain EXAMS: CPT CODE: [id number] CT CHEST W/O CONTRAST 41230 Indication: R upper ext weakness, R upper chest wall pain TECHNIQUE: CT of the chest is obtained without intravenous contrast. Sagittal and coronal reconstruction images were obtained and viewed. COMPARISON: None Location: C3 CT Dose: 547 mGy-centimeters; One or more of the following dose reduction techniques were used: Automated exposure control, adjustment of the mA and/or kV according to patient size, and/or utilization of iterative reconstruction technique. FINDINGS: The visualized thyroid gland is unremarkable. No supraclavicular lymphadenopathy noted. No significant axillary lymphadenopathy found. The lung parenchyma is normal. No evidence of in terstitial lung disease. There are no changes of bronchiectasis. No suspicious pulmonary mass is identified. There is no apparent pneumothorax or pleural effusion. The heart size is normal. There is nopericardial effusion. No suspicious mediastinal mass is identified. The thoracic aorta is normal in c aliber. The visualized upper abdominal structures are unremarkable. The osseous structures are grossly intact. IMPRESSION: 1. Normal CT chest without contrast at 1636 Reported and signed by: Brooks Thornton MD PAGE 1 Signed Report (CONTINUED) [place]: St: REG -- Name: NAZIA VALADEZ : 1995 Age/S: 27/F [address] [facility] Unit: [id number]: [place] [address] Phys: Marvin Aquino MD Acct: [id number] Dis Date: Status: REG ER PHONE #: Exam Date: 05/17/2023 1520 FAX #: Reason: R upper ext weakness, R upper chest wall pain EXAMS:CPT CODE: [id number] CT CHEST W/O CONTRAST 02636 (Continued) CC: Technologist: MAIAR GOTTLIEB TrnscrdDt/Tm: 05/17/2023 (1636) [email or web address] Orig Print D/T: S: 05/17/2023 (1639 PAGE 2 Signed ReportCOMPREHENSIVE METABOLIC [id number] 16:02:00 Test Item Value Reference Range Interpretation Comments POC SODIUM (test 147 mmol/L 128-145 H Testing per formed at:[facility] code = EDUIN) [place] [id number], [place] [address] POC POTASSIUM (test 3.9 mmol/L 3.6-5.1 N code = EDK) POC CHLORIDE (test 102 mmol/L 98-108 N code = EDCL) POC TCO2 (test code 29 mmol/L 18-33 N = EDTCO2) POC ANION GAP (test 16 4-14 H code = EDAGAP) POC BUN (test code 6 mg/dL 7-22 L = EDBUN) POC CREATININE 0.8 mg/dL 0.6-1.2 N (test code = EDCRE) POC GLUCOSE (test 98 mg/dL 73-118 N code = EDGLUC) POC CALCIUM (test 10.1 mg/dL 8.0-10.3 N code = EDCA) POC eGFR (test code 105 mL/min See_Comment eGFR is not calculated = EDGFR) if age <18 yrs, if the sex in EHR isli sted as unknown or the creatinine leve l is below assayrang e.This result value is determined by t he eGFR 2020 CKD-EPIfor [facility] using serum cre atinine, age and sex, ex cluding arace coefficie nt. The assay for creat inine is traceable tothe IDMS reference metho d. Chronic kidney disease (CKD) maynot be detectable base d solely on creatinine l evels. A eGFR> 60 does n ot rule out mild renal disease. To distinguishn ormal renal function from mild renal disease, furtherlaborato ry testing may be required. [Automated mess age] The system which ge nerated this result tra nsmitted reference range : >or=60. The reference r belkis was not used to int erpret this result as normal/abnormal . POC ALBUMIN (test 4.4 g/dL 3.3-5.5 N code = EDALB) POC TOTAL PROTEIN 8.1 g/dL 6.4-8.1 N (test code = EDTP) POC BILIRUBIN TOTAL 0.7 mg/dL 0.2-1.6 N (test code = EDTBIL) POC AST (test code 25 U/L 11-38 N = EDAST) POC ALT (test code 13 U/L 10-47 N = EDALT) POC ALKALINE 49 U/L 42-141 N PHOSPHATASE (test code = EDALP) COMPLETE BLOOD COUNT (CBC)2023-05-17 15:47:00 Test Item Value Reference Range Interpretation Comments POC WHITE BLOOD CELL 6.8 10 3/uL 4-10.5 N Testing performed (test code = EDWBC) at:[facility] T X [place] [facility] [address], [place] [address] POC RED BLOOD CELL 4.21 10 6/uL 3.93-5.22 N (test code = EDRBC) POC HEMOGLOBIN (test 12.3 g/dL 11.2-15.7 N code = EDHGB) POC HEMATOCRIT (test 36.3 % 34.1-44.9 N code = EDHCT) POC MEAN CELL VOLUME 86.2 fL 79.4-94.8 N (test code = EDMCV) POC MEAN CELL 29.2 pg 25.6-32.2 N HEMOGLOBIN (test code = EDMCH) POC MEAN CELL HGB CONC 33.9 g/dL 32.2-35.5 N (test code = EDMCHC) POC PLATELET COUNT 350 10 3/uL 150-400 N (test code = EDPLT) POC RED CELL DISTRIB 12.5 % 11.6-14.4 N WIDTH (test code = EDRDW-CV) POC LYMPHOCYTES % 32.7 % 19.3-51.7 N (test code = EDLYM%) POC MIXED CELLS % 10.1 % 1.3-25.9 N (test code = EDMXD%) POC NEUTROPHILS % 57.2 % 34.0-71.1 N (test code = EDNEUT%) POC LYMPHOCYTES # 2.20 k/mm3 1.18-3.74 N (test code = EDLYM#) POC MIXED CELLS # 0.7 10 3/uL 0.1-1.6 N (test code = EDMXD#) POC NEUTROPHILS # 3.90 10 3/uL 1.56-6.13 N (test code = EDNEUT#) POC MEAN PLATELET 10.1 fL 9.4-12.3 N VOLUME (test code = EDMPV) - CT HEAD/BRAIN W/O [id number] 15:39:00 [facility] : 1995 Sex: F [place]: St: PRE -- Name: NAZIA VALADEZ [place] : 1995 Age/S: 27/F [address] [facility] Unit: [id number] Loc: [place], [place] [address] Phys: Marvin Aquino MD Acct: [id number] Dis Date: Status: PRE ER PHONE#: Exam Date: 05/17/2023 8140 FAX #: Reason: R upper ext weakness, R upper chest wall pain EXAMS: CPT CODE: [id number] CT HEAD/BRAIN W/O CONT 27482 Site ID: [id number] CT head TECHNIQUE: CT examination of thebrain was performed without contrast on a helical scanner. Scanning conducted from skull base to vertex in the axial plane acquiring 5mm slice thickness. Coronal and sagittal two-dimensional reformatted imaging performed. CT dose lowering technique utilized, with adjustment of MA/kV according to patient size and automated exposure control. CLINICAL HISTORY: Headache, right upper extremity weakness FINDINGS: No mass-effect, midline shift, extra-axial fluid collections or intracranial hemorrhage is seen. Cerebral and cerebellar hemispheres are well-formed. There is no evidence for acute parenchymal infarct. The bony calvarium and visualized paranasal sinuses are normal. IMPRESSION: Negative noncontrast head CT. CT cervical spine TECHNIQUE: CT examination of the cervical spine without contrast was performed on a helical scanner without contrastwith coronal and sagittal reformatted imaging obtained. Scanning conducted in axial plane from skullbase down to upper thoracic spine. 1.25mm slice thickness acquired. CT dose lowering technique utilized, with adjustment of MA/kV according to patient size and automated exposure control. CLINICAL HISTORY: Right upper extremity weakness FINDINGS: PAGE 1 Signed Report (CONTINUED) [place]: St: PRE----- Name: NAZIA VALADEZ : 1995 Age/S: 27/F [address] [facility] Unit: [id number] Loc: [place] [address] Phys: Marvin Aquino MD Acct: [id number] Dis Date: Status: PRE ER PHONE #: Exam Date: 05/17/2023 9053 FAX #: Reason: R upper ext weakness, R upper chest wall pain EXAMS: CPT CODE: [id number] CT HEAD/BRAIN W/O CONT 77702 (Continued) Normal cervical lordosis. No acute fracture or subluxation. Prevertebral soft tissues appear unremarkable. The atlantoaxial joint is unremarkable. Intervertebraldisc heights appear well- maintained, no significant uncovertebral or facet joint abnormality demonstrated by CT. The visualized lung apices are normal. IMPRESSION: Negative CT cervical spine, correlatewith MRI neurocompression. at 1539 Reported and signed by: John Bustos MD CC: Technologist: MAIRA GOTTLIEB Trnscrd Dt/Tm: 05/17/2023 (1539) [email or web address] Orig Print D/T: S: 05/17/2023 (1542 PAGE 2 Signed Report- CT C-SPINE W/O CONT 2023-05-17 15:39:00 [facility] : 1995 Sex: F [place]: St: PRE -- Name: NAZIA VALADEZ [place] : 1995 Age/S: 27/F [address] [facility] Unit: [id number] Loc:[place], [place] [address] Phys: Marvin Aquino MD Acct: [id number] Dis Date: Status: PRE ER PHONE #: Exam Date: 05/17/2023 8144 FAX #: Reason: R upper ext weakness, R upper chest wall pain EXAMS: CPT C ODE: [id number] CT C-SPINE W/O CONT 42088 Site ID: [id number] CT head TECHNIQUE: CT examination of the brainwas performed without contrast on a helical scanner. Scanning conducted from skull base to vertex in the axial plane acquiring 5mm slice thickness. Coronal and sagittal two-dimensional reformatted imaging performed. CT dose lowering technique utilized, with adjustment of MA/kV according to patient size and automated exposure control. CLINICAL HISTORY: Headache, right upper extremity weakness FINDINGS: No mass-effect, midline shift, extra-axial fluid collections or intracranial hemorrhage is seen. Ce rebral and cerebellar hemispheres are well-formed. There is no evidence for acute parenchymal infarct. The bony calvarium and visualized paranasal sinuses are normal. IMPRESSION: Negative noncontrast head CT. CT cervical spine TECHNIQUE: CT examination of the cervical spine without contrast was performed on a helical scanner without contrast withcoronal and sagittal reformatted imaging obtained. Scanning conducted in axial plane from skull basedown to upper thoracic spine. 1.25mm slice thickness acquired. CT dose lowering technique utilized, with adjustment of MA/kV according to patient size and automated exposure control. CLINICAL HISTORY:Right upper extremity weakness FINDINGS: PAGE 1 Signed Report (CONTINUED) [place]: St: PRE-------- Name: NAZIA VALADEZ [place] : 1995 Age/S: 27/F [address] [facility] Unit: [id number] Loc: [place], [place] [address] Phys: Marvin Aquino MD Acct: [id number] Dis Date: Status: PRE ER PHONE #: Exam Date: 05/17/2023 8959 FAX #: Reason: R upper ext weakness, R upper chest wall pain EXAMS: CPT CODE: [id number] CT C-SPINE W/O CONT 97386 (Continued) Normal cervical lordosis. No acute fracture or subluxation. Prevertebral soft tissues appear unremarkable. The atlantoaxial joint is unremarkable. Intervertebral disc heights appear well- maintained, no significant uncovertebral or facet joint abnormality demonstrated byCT. The visualized lung apices are normal. IMPRESSION: Negative CT cervical spine, correlate with MRI neurocompression. at 1539 Reported and signed by: John Bustos MD CC: Technologist: MAIRA GOTTLIEB Trnscrd Dt/Tm: 05/17/2023 (1539) [email or web address] Orig Print D/T: S: 05/17/2023 (1542 PAGE 2 Signed ReportPOCT MOLECULAR [id number] 17:19:34 Test Item Value Reference Range Interpretation Comments POCT Molecular FluA (test code = Negative Negative 33606-3) POCT Molecular FluB (test code = Negative Negative 10222-4) Lab Interpretation (test code = Normal 24262-4) [facility] MOLECULAR [id number] 17:14:54 Test Item Value Reference Range Interpretation Comments POCT Molecular Strep (test code = Negative Negative 05514-2) Lab Interpretation (test code = Normal 61212-9) [facility] GLUCOSE (AUTOMATED)2022-02-28 20:31:17 Test Item Value Reference Range Interpretation Comments POCT GLU (test code = [id number]) 118 mg/dL 70-110 H Lab Interpretation (test code = Abnormal 13627-6) [facility] 23:42:00 Test Item Value Reference Range Interpretation Comments AGAP (test code = AGAP) 12.9 10.0-20.0 [facility]SqrzjthBETZGWEOZSRP2692-35-08 23:42:00 Test Item Value Reference Range Interpretation Comments Glucose Lvl (test code = Glucose Lvl) 102 70-99 [facility] HospitalSucmqmbRAINHHOVXXJW6745-51-09 23:42:00 Test Item Value Reference Range Interpretation Comments Sodium Lvl (test code = Sodium Lvl) 140 135-145 [facility] HospitalFazpupvRSLHKLJCLXWZ0969-07-78 23:42:00 Test Item Value Reference Range Interpretation Comments Creatinine Lvl (test code = Creatinine 0.58 0.50-1.40 Lvl) [facility] HospitalWfbicwgYKIDPBYFJWLZ8886-28-95 23:42:00 Test Item Value Reference Range Interpretation Comments Chloride Lvl (test code = Chloride Lvl) 106 95-109 [facility]ggGNCMPMCDYRDG9678-08-20 23:42:00 Test Item Value Reference Range Interpretation Comments Potassium Lvl (test code = Potassium 3.9 3.5-5.1 Lvl) [facility]CpuhlvxCHUCAYYLWVMA8592-44-03 23:42:00 Test Item Value Reference Range Interpretation Comments BUN (test code = BUN) 10 7-22 [facility]WunfwfcBRAWGASXEAID2454-47-29 23:42:00 Test Item Value Reference Range Interpretation Comments Calcium Lvl (test code = Calcium Lvl) 9.4 8.5-10.5 [facility]OhycmypPLDOBJQPOVYN9136-54-08 23:42:00 Test Item Value Reference Range Interpretation Comments CO2 (test code = CO2) 25 24-32 [facility]KylcedmYOWIHNWGBJIU5232-82-38 23:42:00 Test Item Value Reference Range Interpretation Comments eGFR (test code = eGFR) 133 [facility] HospitalUjhdvcaIIBISPWDSA0135-84-03 23:42:00 Test Item Value Reference Range Interpretation Comments Basophils # (test code = Basophils #) 0.1 <=0.2 [facility] HospitalAzyayccKZGDFYUHLQ3387-80-60 23:42:00 Test Item Value Reference Range Interpretation Comments Segs-Bands # (test code = Segs-Bands #) 3.6 1.5-8.1 [facility] HospitalCewvvxsXETHMNAVSV6875-95-51 23:42:00 Test Item Value Reference Range Interpretation Comments Lymphocytes # (test code = Lymphocytes 3.2 1.0-5.5 #) [facility] HospitalUyljifgICVQKKFOBG5367-57-00 23:42:00 Test Item Value Reference Range Interpretation Comments Monocytes # (test code = Monocytes #) 0.5 <=0[address]8 [facility] HospitalJketbfeUMOGGRGGYV4553-06-10 23:42:00 Test Item Value Reference Range Interpretation Comments Eosinophils # (test code = Eosinophils 0.6 <=0.5 #) [facility] HospitalSyhkazoNSKTXRONCV9322-20-29 23:42:00 Test Item Value Reference Range Interpretation Comments Basophils (test code = Basophils) 0.8 <=[address]0 [facility] HospitalJaogzpzABNTNFDWIY4118-53-83 23:42:00 Test Item Value Reference Range Interpretation Comments Eosinophils (test code = Eosinophils) 7.[address] <=[address]0 [facility] HospitalRaptyvuLDVDNNRGXM1255-59-77 23:42:00 Test Item Value Reference Range Interpretation Comments Monocytes (test code = Monocytes) 6.1 2.0-12.0 [facility] HospitalIasuglxIXPNCMRPDS3610-89-82 23:42:00 Test Item Value Reference Range Interpretation Comments Segs (test code = Segs) 45.3 45.0-75.0 [facility] HospitalEwawsjdGAWBZZZEBW7980-01-10 23:42:00 Test Item Value Reference Range Interpretation Comments Lymphocytes (test code = Lymphocytes) 40.6 20.0-40.0 [facility] HospitalPciezgvYDOLQPAXNN4772-84-38 23:42:00 Test Item Value Reference Range Interpretation Comments MPV (test code = MPV) 8.4 7.4-10.4 [facility] HospitalHcsputcYIKAFUVVIX1844-18-96 23:42:00 Test Item Value Reference Range Interpretation Comments Platelet (test code = Platelet) 263 133-450 [facility] HospitalIosuwmqMJTJOUOPUT3131-94-50 23:42:00 Test Item Value Reference Range Interpretation Comments Hct (test code = Hct) 37.5 36.0-48.0 [facility] HospitalWwjmgvfVAJKIBVLLC1032-30-50 23:42:00 Test Item Value Reference Range Interpretation Comments Hgb (test code = Hgb) 13.0 12.0-16.0 [facility] HospitalEszunbmOLZSSEYGQA6346-85-40 23:42:00 Test Item Value Reference Range Interpretation Comments RDW (test code = RDW) 12.8 11.5-14.5 [facility] HospitalHaskpcoILVBTLLHMA0523-15-92 23:42:00 Test Item Value Reference Range Interpretation Comments MCV (test code = MCV) 83.6 80.0-98.0 [facility] HospitalJjeahbvZCUDPJGDZV6451-48-30 23:42:00 Test Item Value Reference Range Interpretation Comments MCHC (test code = MCHC) 34.5 32.0-36.0 [facility] HospitalPkqhdvlMLSKXXJEAK6424-48-38 23:42:00 Test Item Value Reference Range Interpretation Comments MCH (test code = MCH) 28.9 pg 27.0-31.0 [facility] HospitalGupedvuCVEPRWAQMA6471-73-70 23:42:00 Test Item Value Reference Range Interpretation Comments RBC (test code = RBC) 4.49 4.20-5.40 [facility] HospitalUttbrwmWWRNJVAJVI8459-69-25 23:42:00 Test Item Value Reference Range Interpretation Comments WBC (test code = WBC) 7.8 3.7-10.4 [facility]OpffdrqVJUUHCHCGRTA1283-73-24 23:42:00 Test Item Value Reference Range Interpretation Comments AGAP (test code = AGAP) 12.9 10.0-20.0 [facility]FhyzlpkCPXAMRDZHRLD5930-27-60 23:42:00 Test Item Value Reference Range Interpretation Comments Glucose Lvl (test code = Glucose Lvl) 102 70-99 [facility]XsfmdhbTLLHAZXQWREK4723-02-84 23:42:00 Test Item Value Reference Range Interpretation Comments Sodium Lvl (test code = Sodium Lvl) 140 135-145 [facility]UylwipwWOBBMERMQBZO6001-91-52 23:42:00 Test Item Value Reference Range Interpretation Comments Creatinine Lvl (test code = Creatinine 0.58 0.50-1.40 Lvl) [facility]awDunrwcfTTDNZEXEXEWV5933-97-18 23:42:00 Test Item Value Reference Range Interpretation Comments Chloride Lvl (test code = Chloride Lvl) 106 95-109 [facility]CavyflaSRJYZXZPIMZZ2937-72-88 23:42:00 Test Item Value Reference Range Interpretation Comments Potassium Lvl (test code = Potassium 3.9 3.5-5.1 Lvl) [facility]awDtgxafuUSXXFFKTLGQD1410-42-03 23:42:00 Test Item Value Reference Range Interpretation Comments BUN (test code = BUN) 10 7-22 [facility]awSpdtuiwARZEAIGZOXQS1983-81-16 23:42:00 Test Item Value Reference Range Interpretation Comments Calcium Lvl (test code = Calcium Lvl) 9.4 8.5-10.5 [facility]awQpvoyihEGKEAGOPJKML6833-18-04 23:42:00 Test Item Value Reference Range Interpretation Comments CO2 (test code = CO2) 25 24-32 [facility]awTfeynxtYGSKZCTABTOV0337-67-90 23:42:00 Test Item Value Reference Range Interpretation Comments eGFR (test code = eGFR) 133 [facility] HospitalCaafggbCYFTBNSVAE4014-43-94 23:42:00 Test Item Value Reference Range Interpretation Comments Basophils # (test code = Basophils #) 0.[address]2 [facility] HospitalNcrnnloYLOORLCFNY3173-23-20 23:42:00 Test Item Value Reference Range Interpretation Comments Segs-Bands # (test code = Segs-Bands #) 3.6 1.5-8.1 [place] 157318-05-11 23:42:00 Test Item Value Reference Range Interpretation Comments Lymphocytes # (test code = Lymphocytes 3.2 1.0-5.5 #) [facility] HospitalJsqnlseSWATJXZUJR6770-87-13 23:42:00 Test Item Value Reference Range Interpretation Comments Monocytes # (test code = Monocytes #) 0.5 <=0.8 [place] [address]-05-11 23:42:00 Test Item Value Reference Range Interpretation Comments Eosinophils # (test code = Eosinophils 0.6 <=0.5 #) [facility] HospitalJarcmfyZWWFNFZHTV4910-44-20 23:42:00 Test Item Value Reference Range Interpretation Comments Basophils (test code = Basophils) 0.[address] <=[address]0 [facility] HospitalHnqiwjrHUFMRGLIRC1591-80-80 23:42:00 Test Item Value Reference Range Interpretation Comments Eosinophils (test code = Eosinophils) 7.[address] [facility] HospitalZjkoklbJDCOCBLYIU8456-51-47 23:42:00 Test Item Value Reference Range Interpretation Comments Monocytes (test code = Monocytes) 6.1 2.0-12.0 [facility] HospitalNxityazNFCCFYEUBN2416-64-89 23:42:00 Test Item Value Reference Range Interpretation Comments Segs (test code = Segs) 45.3 45.0-75.0 [facility] [facility]kom[facility]UWBOJSVQFS5071-93-04 23:42:00 Test Item Value Reference Range Interpretation Comments Lymphocytes (test code = Lymphocytes) 40.6 20.0-40.0 [facility] HospitalSptvjptEEQTFFNGSG4334-07-30 23:42:00 Test Item Value Reference Range Interpretation Comments MPV (test code = MPV) 8.4 7.4-10.4 [facility] HospitalZhxdjlmDBQEOHKTUA0016-96-14 23:42:00 Test Item Value Reference Range Interpretation Comments Platelet (test code = Platelet) 263 133-450 [facility] HospitalKvtdoxlDTJWPEHENG2014-83-23 23:42:00 Test Item Value Reference Range Interpretation Comments Hct (test code = Hct) 37.5 36.0-48.0 [facility] HospitalGvckhknLGOUUOXOKJ6990-47-44 23:42:00 Test Item Value Reference Range Interpretation Comments Hgb (test code = Hgb) 13.0 12.0-16.0 [facility] HospitalNbdtecvAUGBZFQHGY3034-04-29 23:42:00 Test Item Value Reference Range Interpretation Comments RDW (test code = RDW) 12.8 11.5-14.5 [facility] HospitalSryobucQRWRVYRZLX6527-56-78 23:42:00 Test Item Value Reference Range Interpretation Comments MCV (test code = MCV) 83.6 80.0-98.0 [facility] HospitalYleyxacQLHBQKREJE7092-28-29 23:42:00 Test Item Value Reference Range Interpretation Comments MCHC (test code = MCHC) 34.5 32.0-36.0 [facility] HospitalApytehgVSSCGCDBAR8886-98-49 23:42:00 Test Item Value Reference Range Interpretation Comments MCH (test code = MCH) 28.9 pg 27.0-31.0 [facility] HospitalAbwjpmdCUMHYNFVVI3228-19-45 23:42:00 Test Item Value Reference Range Interpretation Comments RBC (test code = RBC) 4.49 4.20-5.40 [facility] HospitalFdmkidmPJUWGELMNR5467-14-52 23:42:00 Test Item Value Reference Range Interpretation Comments WBC (test code = WBC) 7.8 3.7-10.4 [facility] AND [id number] 23:40:00 Test Item Value Reference Range Interpretation Comments UA Bili (test code = Negative *NA*(10/27/17 UA Bili) 6:40 PM) [facility] AND [id number] 23:40:00 Test Item Value Reference Range Interpretation Comments UA Color (test code = Yellow *NA*(10/27/17 UA Color) 6:40 PM) [facility] AND [id number] 23:40:00 Test Item Value Reference Range Interpretation Comments UA Turbidity (test code Slight Cloudy = UA Turbidity) (10/27/17 6:40 PM) [facility] AND [id number] 23:40:00 Test Item Value Reference Range Interpretation Comments UA Bacteria (test code = UA Few /HPF Bacteria) [facility] AND [id number] 23:40:00 Test Item Value Reference Range Interpretation Comments UA RBC (test code = UA RBC) 3-5 /HPF <=2 [facility] AND [id number] 23:40:00 Test Item Value Reference Range Interpretation Comments UA WBC (test code = UA WBC) 6-10 /HPF [facility] AND [id number] 23:40:00 Test Item Value Reference Range Interpretation Comments UA Sq Epi (test code = UA Sq Epi) Many /LPF [facility] [id number] 23:40:00 Test Item Value Reference Range Interpretation Comments U Preg (test code = U Negative (10/27/17 6:40 Preg) PM) [facility] AND [id number] 23:40:00 Test Item Value Reference Range Interpretation Comments UA Spec Grav (test code = UA Spec 1.015 1 Grav) [facility] AND [id number] 23:40:00 Test Item Value Reference Range Interpretation Comments UA Ketones (test code Negative *NA*(10/27/17 = UA Ketones) 6:40 PM) [facility] [id number] 23:40:00 Test Item Value Reference Range Interpretation Comments UA pH (test code = UA pH) 7.5 1 5.0-8.0 [facility] [id number] 23:40:00 Test Item Value Reference Range Interpretation Comments UA Glucose (test code Negative (10/27/17 6:40 = UA Glucose) PM) [facility] AND [id number] 23:40:00 Test Item Value Reference Range Interpretation Comments UA Protein (test code Negative (10/27/17 6:40 = UA Protein) PM) [facility] [id number] 23:40:00 Test Item Value Reference Range Interpretation Comments UA Blood (test code = Large *ABN*(10/27/17 UA Blood) 6:40 PM) [facility] AND [id number] 23:40:00 Test Item Value Reference Range Interpretation Comments UA Urobilinogen (test code = UA 0.2 0.1-1.0 Urobilinogen) [facility] [id number] 23:40:00 Test Item Value Reference Range Interpretation Comments UA Nitrite (test code Negative (10/27/17 6:40 = UA Nitrite) PM) [facility] [id number] 23:40:00 Test Item Value Reference Range Interpretation Comments UA Leuk Est (test code Small *ABN*(10/27/17 = UA Leuk Est) 6:40 PM) [facility] [id number] 23:40:00 Test Item Value Reference Range Interpretation Comments UA Bili (test code = Negative *NA*(10/27/17 UA Bili) 6:40 PM) [facility] [id number] 23:40:00 Test Item Value Reference Range Interpretation Comments UA Color (test code = Yellow *NA*(10/27/17 UA Color) 6:40 PM) [facility] [id number] 23:40:00 Test Item Value Reference Range Interpretation Comments UA Turbidity (test code Slight Cloudy = UA Turbidity) (10/27/17 6:40 PM) [facility] AND [id number] 23:40:00 Test Item Value Reference Range Interpretation Comments UA Bacteria (test code = UA Few /HPF Bacteria) [facility] [id number] 23:40:00 Test Item Value Reference Range Interpretation Comments UA RBC (test code = UA RBC) 3-5 /HPF <=2 [facility] AND [id number] 23:40:00 Test Item Value Reference Range Interpretation Comments UA WBC (test code = UA WBC) 6-10 /HPF [facility] AND [id number] 23:40:00 Test Item Value Reference Range Interpretation Comments UA Sq Epi (test code = UA Sq Epi) Many /LPF [facility] [id number] 23:40:00 Test Item Value Reference Range Interpretation Comments U Preg (test code = U Negative (10/27/17 6:40 Preg) PM) [facility] AND [id number] 23:40:00 Test Item Value Reference Range Interpretation Comments UA Spec Grav (test code = UA Spec 1.015 1 Grav) [facility] AND [id number] 23:40:00 Test Item Value Reference Range Interpretation Comments UA Ketones (test code Negative *NA*(10/27/17 = UA Ketones) 6:40 PM) [facility] [id number] 23:40:00 Test Item Value Reference Range Interpretation Comments UA pH (test code = UA pH) 7.5 1 5.0-8.0 [facility] AND [id number] 23:40:00 Test Item Value Reference Range Interpretation Comments UA Glucose (test code Negative (10/27/17 6:40 = UA Glucose) PM) [facility] AND [id number] 23:40:00 Test Item Value Reference Range Interpretation Comments UA Protein (test code Negative (10/27/17 6:40 = UA Protein) PM) [facility] AND [id number] 23:40:00 Test Item Value Reference Range Interpretation Comments UA Blood (test code = Large *ABN*(10/27/17 UA Blood) 6:40 PM) [facility] AND [id number] 23:40:00 Test Item Value Reference Range Interpretation Comments UA Urobilinogen (test code = UA 0.2 0.1-1.0 Urobilinogen) [facility] AND [id number] 23:40:00 Test Item Value Reference Range Interpretation Comments UA Nitrite (test code Negative (10/27/17 6:40 = UA Nitrite) PM) [facility] AND [id number] 23:40:00 Test Item Value Reference Range Interpretation Comments UA Leuk Est (test code Small *ABN*(10/27/17 = UA Leuk Est) 6:40 PM) [facility]2017-07-03 02:47:00 Test Item Value Reference Range Interpretation Comments C trachomatis by Amp Det Negative *NA*(12/18/16 (APTIMA) (test code = C 9:47 PM) trachomatis by Amp Det (APTIMA)) [facility]2017-07-03 02:47:00 Test Item Value Reference Range Interpretation Comments N gonorrhea by Amp Det Negative *NA*(12/18/16 (APTIMA) (test code = N 9:47 PM) gonorrhea by Amp Det (APTIMA)) [facility]2017-07-03 02:47:00 Test Item Value Reference Range Interpretation Comments Source APTIMA (test Endocervix *NA*(12/18/16 code = Source APTIMA) 9:47 PM) [facility]2017-07-03 02:47:00 Test Item Value Reference Range Interpretation Comments C trachomatis by Amp Det Negative *NA*(12/18/16 (APTIMA) (test code = C 9:47 PM) trachomatis by Amp Det (APTIMA)) [facility]2017-07-03 02:47:00 Test Item Value Reference Range Interpretation Comments N gonorrhea by Amp Det Negative *NA*(12/18/16 (APTIMA) (test code = N 9:47 PM) gonorrhea by Amp Det (APTIMA)) [facility] [id number] 02:47:00 Test Item Value Reference Range Interpretation Comments Source APTIMA (test Endocervix *NA*(12/18/16 code = Source APTIMA) 9:47 PM) [facility] [id number] 01:38:00 Test Item Value Reference Range Interpretation Comments UA Leuk Est (test Negative (12/18/16 8:38 code = UA Leuk Est) PM) [facility] [id number] 01:38:00 Test Item Value Reference Range Interpretation Comments UA Urobilinogen (test code = UA 1.0 0.1-1.0 Urobilinogen) [facility] [id number] 01:38:00 Test Item Value Reference Range Interpretation Comments UA Blood (test code = Large *ABN*(12/18/16 UA Blood) 8:38 PM) [facility] [id number] 01:38:00 Test Item Value Reference Range Interpretation Comments UA Bili (test code = Negative *NA*(12/18/16 UA Bili) 8:38 PM) [facility] [id number] 01:38:00 Test Item Value Reference Range Interpretation Comments UA Ketones (test code Negative *NA*(12/18/16 = UA Ketones) 8:38 PM) [facility] [id number] 01:38:00 Test Item Value Reference Range Interpretation Comments UA Nitrite (test code Negative (12/18/16 8:38 = UA Nitrite) PM) [facility] [id number] 01:38:00 Test Item Value Reference Range Interpretation Comments UA Protein (test code = Trace *ABN*(12/18/16 UA Protein) 8:38 PM) [facility] [id number] 01:38:00 Test Item Value Reference Range Interpretation Comments UA pH (test code = UA pH) 7.5 1 5.0-8.0 [facility] [id number] 01:38:00 Test Item Value Reference Range Interpretation Comments UA Spec Grav (test code = UA Spec 1.020 1 Grav) [facility] AND [id number] 01:38:00 Test Item Value Reference Range Interpretation Comments UA Glucose (test code Negative (12/18/16 8:38 = UA Glucose) PM) [facility] AND [id number] 01:38:00 Test Item Value Reference Range Interpretation Comments UA Turbidity (test code = Clear (12/18/16 8:38 UA Turbidity) PM) [facility] AND [id number] 01:38:00 Test Item Value Reference Range Interpretation Comments UA Color (test code = Yellow *NA*(12/18/16 8:38 UA Color) PM) [facility] AND [id number] 01:38:00 Test Item Value Reference Range Interpretation Comments UA Sq Epi (test code = UA Sq Occasional /LPF Epi) [facility] AND [id number] 01:38:00 Test Item Value Reference Range Interpretation Comments UA Bacteria (test code = UA Occasional /HPF Bacteria) [facility] AND [id number] 01:38:00 Test Item Value Reference Range Interpretation Comments UA RBC (test code = UA RBC) 11-20 /HPF <=2 [facility] AND [id number] 01:38:00 Test Item Value Reference Range Interpretation Comments UA WBC (test code = UA WBC) 0-2 /HPF [facility] [id number] 01:38:00 Test Item Value Reference Range Interpretation Comments U Preg (test code = U Negative (12/18/16 8:38 Preg) PM) [facility] AND [id number] 01:38:00 Test Item Value Reference Range Interpretation Comments UA Leuk Est (test Negative (12/18/16 8:38 code = UA Leuk Est) PM) [facility] AND [id number] 01:38:00 Test Item Value Reference Range Interpretation Comments UA Urobilinogen (test code = UA 1.0 0.1-1.0 Urobilinogen) [facility] AND [id number] 01:38:00 Test Item Value Reference Range Interpretation Comments UA Blood (test code = Large *ABN*(12/18/16 UA Blood) 8:38 PM) [facility] AND [id number] 01:38:00 Test Item Value Reference Range Interpretation Comments UA Bili (test code = Negative *NA*(12/18/16 UA Bili) 8:38 PM) [facility] AND [id number] 01:38:00 Test Item Value Reference Range Interpretation Comments UA Ketones (test code Negative *NA*(12/18/16 = UA Ketones) 8:38 PM) [facility] AND [id number] 01:38:00 Test Item Value Reference Range Interpretation Comments UA Nitrite (test code Negative (12/18/16 8:38 = UA Nitrite) PM) [facility] AND [id number] 01:38:00 Test Item Value Reference Range Interpretation Comments UA Protein (test code = Trace *ABN*(12/18/16 UA Protein) 8:38 PM) [facility] AND [id number] 01:38:00 Test Item Value Reference Range Interpretation Comments UA pH (test code = UA pH) 7.5 1 5.0-8.0 [facility] AND [id number] 01:38:00 Test Item Value Reference Range Interpretation Comments UA Spec Grav (test code = UA Spec 1.020 1 Grav) [facility] AND [id number] 01:38:00 Test Item Value Reference Range Interpretation Comments UA Glucose (test code Negative (12/18/16 8:38 = UA Glucose) PM) [facility] AND [id number] 01:38:00 Test Item Value Reference Range Interpretation Comments UA Turbidity (test code = Clear (12/18/16 8:38 UA Turbidity) PM) [facility] AND [id number] 01:38:00 Test Item Value Reference Range Interpretation Comments UA Color (test code = Yellow *NA*(12/18/16 8:38 UA Color) PM) [facility] AND [id number] 01:38:00 Test Item Value Reference Range Interpretation Comments UA Sq Epi (test code = UA Sq Occasional /LPF Epi) [facility] AND [id number] 01:38:00 Test Item Value Reference Range Interpretation Comments UA Bacteria (test code = UA Occasional /HPF Bacteria) [facility] AND [id number] 01:38:00 Test Item Value Reference Range Interpretation Comments UA RBC (test code = UA RBC) 11-20 /HPF <=2 [facility] AND [id number] 01:38:00 Test Item Value Reference Range Interpretation Comments UA WBC (test code = UA WBC) 0-2 /HPF [facility] [id number] 01:38:00 Test Item Value Reference Range Interpretation Comments U Preg (test code = U Negative (12/18/16 8:38 Preg) PM) [facility]OL[facility]EPBH0577[facility]80[facility] 00:17:00 Test Item Value Reference Range Interpretation Comments Chloride Lvl (test code = Chloride Lvl) 112 95-109 [facility]PfyufkvIQMGMWDNKLNI3921-64-02 00:17:00 Test Item Value Reference Range Interpretation Comments Sodium Lvl (test code = Sodium Lvl) 144 135-145 [facility]CdxfxnfUHKGLJZGSEIH8194-36-88 00:17:00 Test Item Value Reference Range Interpretation Comments Calcium Lvl (test code = Calcium Lvl) 8.4 8.5-10.5 [id number] 00:17:00 Test Item Value Reference Range Interpretation Comments CO2 (test code = CO2) 25 24-32 [facility]HTPRAVALE0588[facility] 00:17:00 Test Item Value Reference Range Interpretation Comments RDW (test code = RDW) 13.2 11.5-14.5 [facility] H[id number] 00:17:00 Test Item Value Reference Range Interpretation Comments MCHC (test code = MCHC) 34.1 32.0-36.0 [facility] HospitalFbplvfoWQVQCJBYXI3241-63-32 00:17:00 Test Item Value Reference Range Interpretation Comments MPV (test code = MPV) 7.9 7.4-10.4 [facility] HospitalMjnkjejTRFLCJIVZI3272-11-04 00:17:00 Test Item Value Reference Range Interpretation Comments Platelet (test code = Platelet) 305 133-450 [facility] HospitalFewnrbwOQPOOZNZHE3794-30-14 00:17:00 Test Item Value Reference Range Interpretation Comments RBC X 10x6 (test code = RBC X 10x6) 3.99 4.20-5.40 [facility] HospitalTiulmuzMHQRROBFXZ6923-02-79 00:17:00 Test Item Value Reference Range Interpretation Comments Hgb (test code = Hgb) 11.5 12.0-16.0 [facility] HospitalLuhjokvIQHDTLBLOB4127-11-47 00:17:00 Test Item Value Reference Range Interpretation Comments MCV (test code = MCV) 84.8 80.0-98.0 [facility] HospitalJbfylcrKIYNWXLUJJ7519-50-82 00:17:00 Test Item Value Reference Range Interpretation Comments WBC X 10x3 (test code = WBC X 10x3) 7.9 3.7-10.4 [facility] HospitalMgpijyoDGNUTXKJMS2389-21-87 00:17:00 Test Item Value Reference Range Interpretation Comments MCH (test code = MCH) 28.9 pg 27.0-31.0 [facility] HospitalVignunuHCNKBSYUGC0888-84-51 00:17:00 Test Item Value Reference Range Interpretation Comments Hct (test code = Hct) 33.8 36.0-48.0 [facility] HospitalJcnvikkRYFJZBZSJT3717-99-18 00:17:00 Test Item Value Reference Range Interpretation Comments Segs (test code = Segs) 56.7 45.0-75.0 [facility] HospitalZxhbcglSRMHZKWGEN6068-25-42 00:17:00 Test Item Value Reference Range Interpretation Comments Eosinophils # (test code = Eosinophils 0.7 <=0.5 #) [facility] HospitalAporlscRKDXWDVRZC2654-04-76 00:17:00 Test Item Value Reference Range Interpretation Comments Lymphocytes (test code = Lymphocytes) 25.9 20.0-40.0 [facility] HospitalPbdvhmaYMZVCXASXZ9844-47-74 00:17:00 Test Item Value Reference Range Interpretation Comments Monocytes (test code = Monocytes) 7.6 2.0-12.0 [facility] HospitalEzypjweWKBKQJYQET7268-75-43 00:17:00 Test Item Value Reference Range Interpretation Comments Basophils (test code = Basophils) 0.[address] [facility] HospitalWkymppoURFJCCALIA9392-40-60 00:17:00 Test Item Value Reference Range Interpretation Comments Eosinophils (test code = Eosinophils) 9.[address] [facility] HospitalEfqumbxNPFVIDQOPC5910-33-70 00:17:00 Test Item Value Reference Range Interpretation Comments Monocytes # (test code = Monocytes #) 0.6 <=0[address]8 [facility] HospitalGosggpbAMKWRTFOUC2941-56-42 00:17:00 Test Item Value Reference Range Interpretation Comments Segs-Bands # (test code = Segs-Bands #) 4.5 1.5-8.1 [facility]ExsnahmVKKMVLQTWG6267-75-33 00:17:00 Test Item Value Reference Range Interpretation Comments Lymphocytes # (test code = Lymphocytes 2.0 1.0-5.5 #) [facility]RufyrkgPYQPIXQAWXRJ2301-57-23 00:17:00 Test Item Value Reference Range Interpretation Comments AGAP (test code = AGAP) 10.7 10.0-20.0 [facility]QxwlepnULYTHZNLAIMR6249-05-10 00:17:00 Test Item Value Reference Range Interpretation Comments eGFR (test code = eGFR) 128 [facility]UvfwjnrKLPTLHFMSFFC2909-28-50 00:17:00 Test Item Value Reference Range Interpretation Comments Creatinine Lvl (test code = Creatinine 0.67 0.50-1.40 Lvl) [facility]KnhczpkNEYPQPOFPFGG9169-73-48 00:17:00 Test Item Value Reference Range Interpretation Comments BUN (test code = BUN) 8 7-22 [facility]HewhrkzTVSJOQAVDXJC5837-43-35 00:17:00 Test Item Value Reference Range Interpretation Comments Glucose Lvl (test code = Glucose Lvl) 90 70-99 [facility]NlsfbnsCFCMUWSKQCNV3749-62-86 00:17:00 Test Item Value Reference Range Interpretation Comments Potassium Lvl (test code = Potassium 3.7 3.5-5.1 Lvl) [facility]WytiypxRRUAHBNPMAQU8697-06-66 00:17:00 Test Item Value Reference Range Interpretation Comments Glucose Lvl (test code = Glucose Lvl) 90 70-99 [facility]ZpcnmlwGHLCYSRWBOYX8390-77-39 00:17:00 Test Item Value Reference Range Interpretation Comments Potassium Lvl (test code = Potassium 3.7 3.5-5.1 Lvl) [facility]BeweuhzAHFQRMROIAFT7129-65-81 00:17:00 Test Item Value Reference Range Interpretation Comments Chloride Lvl (test code = Chloride Lvl) 112 95-109 [facility]SlbdibtFUBCSWLLFVHX0920-77-85 00:17:00 Test Item Value Reference Range Interpretation Comments Sodium Lvl (test code = Sodium Lvl) 144 135-145 [facility]QvjckgxTCDXHDZHLNUT5206-28-38 00:17:00 Test Item Value Reference Range Interpretation Comments Calcium Lvl (test code = Calcium Lvl) 8.4 8.5-10.5 [facility]kmlrnmHNXFWPPGSXBW4976-77-40 00:17:00 Test Item Value Reference Range Interpretation Comments CO2 (test code = CO2) 25 24-32 [facility] HospitalYjbjfumAXYPFKNIPI5674-63-31 00:17:00 Test Item Value Reference Range Interpretation Comments RDW (test code = RDW) 13.2 11.5-14.5 [facility] HospitalOuuhwukLCUQKVLYPP4815-27-84 00:17:00 Test Item Value Reference Range Interpretation Comments MCHC (test code = MCHC) 34.1 32.0-36.0 [facility] HospitalCkqlejpTFDNNFXUUK8978-71-92 00:17:00 Test Item Value Reference Range Interpretation Comments MPV (test code = MPV) 7.9 7.4-10.4 [facility] HospitalPtcjnpcFCBOMZANCF8772-00-49 00:17:00 Test Item Value Reference Range Interpretation Comments Platelet (test code = Platelet) 305 133-450 [facility] HospitalAaggbndULCYFMAMDM2308-87-98 00:17:00 Test Item Value Reference Range Interpretation Comments RBC X 10x6 (test code = RBC X 10x6) 3.99 4.20-5.40 [facility] HospitalMilaznrZCFWPNCOTV5203-42-17 00:17:00 Test Item Value Reference Range Interpretation Comments Hgb (test code = Hgb) 11.5 12.0-16.0 [facility] HospitalKbziltuLDQQCMTFWX0751-53-34 00:17:00 Test Item Value Reference Range Interpretation Comments MCV (test code = MCV) 84.8 80.0-98.0 [facility] HospitalLkaypeiSYCIRNPBHS2206-40-12 00:17:00 Test Item Value Reference Range Interpretation Comments WBC X 10x3 (test code = WBC X 10x3) 7.9 3.7-10.4 [facility] HospitalBkfaugnNEGHSBBWYM8201-79-10 00:17:00 Test Item Value Reference Range Interpretation Comments MCH (test code = MCH) 28.9 pg 27.0-31.0 [facility] HospitalZunqrmbLLGXMFTKVJ3107-84-88 00:17:00 Test Item Value Reference Range Interpretation Comments Hct (test code = Hct) 33.8 36.0-48.0 [facility] HospitalJzakxedPJECIYDUNT3251-34-75 00:17:00 Test Item Value Reference Range Interpretation Comments Segs (test code = Segs) 56.7 45.0-75.0 [facility] HospitalWddmmurSEOUYMXJPA8080-50-94 00:17:00 Test Item Value Reference Range Interpretation Comments Eosinophils # (test code = Eosinophils 0.7 <=0.5 #) [facility] HospitalZtnwrtzPBYREWJHSA0224-87-90 00:17:00 Test Item Value Reference Range Interpretation Comments Lymphocytes (test code = Lymphocytes) 25.9 20.0-40.0 [facility] HospitalSiechxePWXPLLDTTT5983-25-29 00:17:00 Test Item Value Reference Range Interpretation Comments Monocytes (test code = Monocytes) 7.6 2.0-12.0 [facility] HospitalHdyxcdkZTGJIZGTRX5475-71-55 00:17:00 Test Item Value Reference Range Interpretation Comments Basophils (test code = Basophils) 0.[address] [facility] HospitalScfpbcaAPFDRYTDLM3778-02-40 00:17:00 Test Item Value Reference Range Interpretation Comments Eosinophils (test code = Eosinophils) 9.[address] [facility] HospitalJbmhoewBYXRNGEDIW2156-93-13 00:17:00 Test Item Value Reference Range Interpretation Comments Monocytes # (test code = Monocytes #) 0.[address] <=0[address] [facility] [facility]yiauqXODGAOMJRL6058-63-95 00:17:00 Test Item Value Reference Range Interpretation Comments Segs-Bands # (test code = Segs-Bands #) 4.5 1.5-8.1 [facility]KipqzftOMRXTDRIGA0570-86-92 00:17:00 Test Item Value Reference Range Interpretation Comments Lymphocytes # (test code = Lymphocytes 2.0 1.0-5.5 #) [facility]HL[facility]BE5592-81-19 00:17:00 Test Item Value Reference Range Interpretation Comments AGAP (test code = AGAP) 10.7 10.0-20.0 [id number] 00:17:00 Test Item Value Reference Range Interpretation Comments eGFR (test code = eGFR) 128 [facility]Xpa[id number] 00:17:00 Test Item Value Reference Range Interpretation Comments Creatinine Lvl (test code = Creatinine 0.67 0.50-1.40 Lvl) [id number] 00:17:00 Test Item Value Reference Range Interpretation Comments BUN (test code = BUN) 8 7-22 [facility] Notes Date/Time Note Provider Source 2023-05-21 12:25:00 [id number] [facility] [address] [place] [address] PATIENT NAME: NAZIA VALADEZ ADMIT DATE: 05/18/23ACCOUNT NO: [id number] ROEL Hall NO: C.[id number] AGE: [age] REPORT TYPE: 360 - QUERY RESPONSE DOCUMENT SEX: F ADMITTING PHYSICIAN:Miguel Nina DO ATTENDIN G PHYSICIAN:Miguel Nina DO Provider Query QUERY TEXT: Condition General 360MD Query relate d questions should be directed to:[facility] Coding Query Helpline [Based [facility],please clarify the underlying cause of weakness due to hemiplegia,headache ,ti a ,cva, nerve compression or other more appropriat e diagnosis] The patient's Clinical Indicators include:Fatigue-NIH equals 9-TIA/CVA protocol versus nerve compression versus conversion disorderAcute focal neurological deficit-ED Primary Totbtvnnvi39/29/23Shmadhavi is admitted for possible TIA given NIH stroke scale of 9 onadmission-D/C SUMMERY -05/19/23CVA, TIA, right-sided weakness.Right hemiplegiaParesthesiaHeadacheVisual changesDifficulty ambulating Options provided:-- Respond - Create new note now-- Dismiss - Not applicable / Not valid-- Dismiss - Clinically unable to determine / Unknown-- Assign to anothe r provider QUERY RESPONSE: headache Query created by: Zenaida Armstrong on 05/21/2023 3:44 AM at 1225 PATIENT NAME: NAZIA VALADEZ noteC.[id number] for patient plnpKQBJBMWUGYRYQZ1914-20-61T56:25:52 2023-05-19 10:45:00 [id number]:45:00 [facility] ([facility])Hospitalist Discharge SummaryREPORT#:[id number] REPORT STATUS: SignedREPORT INITIALIZATION DATE:05/19/23 TIME: 1045 PATIENT: NAZIA VALADEZ UNIT #: [id number]#: [id number] [address] AGE: 27 SEX: F ATTEND: Miguel Nina AUTHOR: Miguel Nina DOREPT SERVICE DT/TIME: 3 1045* ALL edits or amendments must be made on th e electronic/computer document * General InformationDischarge date: 05/19/23Discharge diagnosis:Right hemiplegiaParesthesiaHeadacheVisual changesDifficulty ambulatingHospital course:Ms. Valadez is a 27-year-old female with a past medical history of anxiety who presented to the ED with a complaint of right hemiaplasia, paresthesias, and visual changes. She is admitte d for possible TIA given NIH stroke scale of [address] brain and cervical spine reveale d no acute intracranial pathology. Patient underwent MRI brain which revealed no acute intracranial pathology. She was evaluated by neurology who felt that patient symptoms were more likely consistent with conversion disorder. Patient denied suicidal and homicidal ideation upon further questioning but does admit to a history of anxiety and depression for which she sees a therapist. Additionally patient endorsed chest pain on admission which resolved without intervention. Troponin remained negative. Echocardiogram was obtained and revealed LVEF of 60 to 65% with no wall motion abnormalities. Patient is presently stable for discharge and will be discharged home. Patient is instructed follow-up with her PCP within 1 to 2 weeks. She is instructed to follow-up with her mental healt h teamwithin 1 to 2 weeks Free Text DxA P NotesFre e text DxA P notes:ASSESSMENT AND PLAN 1. Right hemiplegia2. Paresthesia3. Headache4. Aphasia5. Forgetfulness6. Visual changes7. Lightheadedness8. Difficulty ambulating9. Fatigue-NIH equals 9 Likely secondary to conversion disorder.-Brain, C-spine, and chest C T negative for acute abnormality-MRI of brain revealed no acute intracranial abnormality. MRI of cervical spine and thoracic spine revealed minimal to mild cervical spondylosis, mild thoracic spondylosis without significant spinal canal stenosisor neuroforaminal narrowing. MRI o f lumbar spine revealed lumbar spondylosis with up to mild spinal canal stenosis.-Echocardiogram ordered and is pending. Carotid Dopplers reveale d no hemodynamically significant stenosis.- aspiri n and statin therapy.-Neurochecks and fall precautions-PT/OT ST evaluation-Neurology following, appreciate recs. 10. Atypical chest pain-ACS protocol initiated in ED with EKG, troponin with no acute finding-Patient did receive aspirin and statin.-Morphine and nitroglycerin as needed.-Continue to trend troponin.-Echocardiogram ordered per stroke protocol.-Consider cardiology consult. 11. Anxiety-Ativan as needed Diet: RegularDVT prophylaxis: Lovenox CODE STATUS: Patient is a full code. Dispo: DC home today. Med Rec Med RecDischarge meds:Start taking the following new medications:ATORVASTATIN (LIPITOR) 40 MG TAB 40 MILLIGRAM ORAL 2100 Qty = 30 No Refills ASPIRIN (ASPIRIN) 81 MG TAB.CHEW 81 MILLIGRAM ORAL DAILY . Qty = 30 No Refills GABAPENTIN (NEURONTIN) 100 M G CAP 100 MILLIGRAM ORAL EVERY 8 HOURS. Qty = 90 N o Refills ObjectiveHead/Eyes: atraumatic, clear cornea, EOMI, normal conjunctiva/sclera, normal eyelids/periorb., normocephalic, PERRLENT: mayuri l dentition, normal ear left, normal ear right, normal nose, normal pharynx, normal sinusNeck: full range of motion, non-tender, normal thyroid , supple/no meningismus, no bruit/NL carotids, no JVD, no masses or swellingCardiovascular: normal capillary refill, regular rate rhythmRespiratory : clear to auscultation, no distressAbdomen: non-tender, normal bowel sounds, soft, no distention, no guarding, no hernia, no mass/organomegaly, no reboundMusculoskeletal: normal inspectionSkin: dry, intactPsychiatry: normal affect, normal judgment/insight, normal mood, not homicidal, not suicidal, no hallucinations Discharge InstructionsAdditional Discharge Routines: PCP Follow-Up, Digital Advertising Specialist Follow-UpDiet: Regular Follow-up AppointmentsPCP follow-up: PCP: No Primary or Family Physician PCP follow up timeframe: In 1-2 weeksConsulting provider 1: Provider 1: Serina Mccray MD Specialty: Neurology Keteyfgnlj provider 2: Provider 2: Eliazar Johnson MD Specialty: Behavioral Health at 1137 RPT #:[id number] OF REPORTDSDischarge ghkqpuf3065-85-69F01:45:00C.[id number] v ailable for patient qhlyWOGZRXIWFTMHAT4891-74-71Z53:38:10 2023-05-18 14:04:00 [id number] [facility] [address] [place] [address] PATIENT NAME: ANZIA VALADEZ ADMIT DATE: 05/17/23ACCOUNT NO: [id number] ROEL Hall NO: C.[id number] AGE: [age] REPORT TYPE: eECHOCARDIOGRAM REPORT. SEX: F ADMITTING PHYSICIAN:Tj Quesada MD ATTENDING PHYSICIAN:Tj Quesada MD *[facility]*[address], [place] [address]Aevij Transthoracic Echocardiogram Patient: Chiquis Valadez Date: 05/18/2023 BP: 112 / 78 Location: [facility] : [id number] : 1995 Age: 27 Height: 66 i n / 167.6 cmAccession#: [id number] Gender: F Weight: 176.6 lb / 80.3 kgBMI/BSA: 28.6 kg/m 2 / 1.95 m 2 *Ordering Physician: * Cleopatra Hameed *Interpreting Physician: * Nury Suarez MD*Python Web Developer: * Marizol King - Indications: CP,TIA/CVA. - Study data: Transthoracic echocardiogram. Procedure: Transthoracicechocardiography was performed. Images were obtained using a Wanderio [id number] ultrasound machine. Complete 2D, complete spectral Doppler, andcolor Doppler. Patient status: Inpatient. Patient room number: 365.Stud y status: Stat. - Findings Left ventricle: The cavity size is normal. Wall thickness is normal.Systolic function is normal. The estimate d ejection fraction is 60-64%.Wall motion is normal; there are no regional wall motion abnormalities.Left ventricular diastolic functio n parameters are normal.Right ventricle: The cavit y size is normal. Systolic function isnormal.Left atrium: The atrium is normal in size. PATIENT NAME: NAZIA VALADEZ Right atrium: The atrium is normal in size.Aorta : Aortic root: The aortic root is normal in size.Aortic valve: The valve is structurally normal. The valve istrileaflet. There is no evidence of stenosis. There is noregurgitation.Mitral valve: The valve is structurally normal. There is noevidence of stenosis. There is trivial regurgitation.Tricuspid valve: The valve is structurally normal. There is mildregurgitation.Pulmonic valve: Not well visualized. There is no regurgitation.Pericardium: There is no pericardial effusion.Pulmonary arteries:The main pulmonary artery is normal-sized.Systemic veins:Inferior vena cava: The vessel is normal i n size. - Measurements Left ventricle Value Ref KATHY, LAX 4.9 cm 3.8 - 5.2 ESD, LAX 3.5 cm 2.2 - 3.5 ESD/bsa, LAX 1.8 cm/m 2 1.3 - 2.1 FS, LAX 28 % 27 - 45 PW, ED 0.8 cm 0. 6 - 0.9 PW, ES 1.1 cm IVS/PW, ED 1.06 EF 55 % 54 - 74 LVOT Value Ref Diam, S 2.03 cm Area 3.2 cm 2 Peak francisco, S 0.97 m/sec Mean francisco, S 0.72 m/sec VTI, S 18.0 cm Peak grad, S 4 mm Hg Mean grad, S 2 mm Hg SV 58 ml SV/bsa 30 ml/m 2 Ventricular septum Value Ref IVS, ED 0.8 cm 0.6 - 0.9 IVS, ES 1.0 cm Right ventricle Value Ref KATHY, LAX 3.0 cm Left atrium Value Ref AP dim, ES 3.13 cm 2.70 - 3.80 Aortic valve Value Ref Peak v, S 1.2 m/sec Mean v, S 0.93 m/sec PATIENT NAME: NAZIA VALADEZ VTI, S 24.6 cm Mean grad , S 3.6 mm Hg Peak grad, S 5.7 mm Hg LVOT/AV, VTI ratio 0.73 SHAWN, VTI 2.36 cm 2 LVOT/AV, Vpeak 0.81 ratio SHAWN, Vmax 2.62 cm 2 Mitral valve Value Ref Peak E 1.02 m/sec Peak A 0.42 m/sec Decel time 201 ms Peak grad, D 4.1 m m Hg Peak E/A ratio 2.39 Pulmonic valve Value Ref HI peak v 0.89 m/sec HI peak grad 3 mm Hg Aortic root Value Ref Root diam 3.0 cm <3.6 Ascending aorta Value Ref AAo AP diam, S 3.0 cm AAo AP diam/bsa, S 1.5 cm/m 2 - Conclusions Summary: 1. Left ventricle: The cavity size is normal. Wall thickness is normal. Systolic function is normal . The estimated ejection fraction is 60-64%. Wall motion is normal; there are no regional wall motion abnormalities. Left ventricular diastolic function parameters are normal.2. Agitated mayuri l saline contrast bubble study was performed and was negative for intra-cardiac shunting. Prepare d and electronically signed by Nury Suarez MD05/18/2023 14:04 at 1404 PATIEN T NAME: NAZIA VALADEZ :04: 0 .[id number] for patient [id number]:04:52 2023-05-18 12:42:00 [id number]:42:00 [facility] Progress NoteREPORT#:[id number] REPORT STATUS: SignedREPOR T INITIALIZATION DATE:05/18/23 TIME: 124 PATIENT: NAZIA VALADEZ UNIT #: [id number]#: [id number] [address] AGE: 27 SEX: F ATTEND: Tj Quesada AUTHOR: Miguel Nnia SERVICE DT/TIME: 05/18/23 1242* ALL edits or amendments must be made on the electronic/computer document * SubjectiveChief complaint:Assumed care of patient today labs, vitals, documentation reviewed. Patient states she feels okay today. States she feels about the same as yesterday. Shedenies any complaints. No acute events overnight. Objective Physical ExamHead/Eyes: atraumatic, clear cornea, EOMI, normal conjunctiva/sclera, normal eyelids/periorb., normocephalic, PERRLENT: normal dentition, mayuri l ear left, normal ear right, normal nose, normal pharynx, normal sinusNeck: full range of motion, non-tender, normal thyroid, supple/no meningismus, no bruit/NL carotids, no JVD, no masses or swellingCardiovascular: normal capillary refill, regular rate rhythmRespiratory : clear to auscultation, no distressAbdomen: non-tender, normal bowel sounds, soft, no distention, no guarding, no hernia, no mass/organomegaly, no reboundMusculoskeletal: normal inspectionSkin: dry, intactPsychiatry: normal affect, normal judgment/insight, normal mood, not homicidal, not suicidal, no hallucinations Diagnosis, Assessment Plan Free Text DxA P NotesFree text DxA P notes:ASSESSMENT AND PLAN 1. Right hemiplegia2. Paresthesia3. Headache4. Aphasia5. Forgetfulness6. Visual changes7. Lightheadedness8. Difficulty ambulating9. Fatigue-NIH equals 9-TIA/CVA protocol versus nerve compression versus conversion disorder -Brain, C-spine, and chest C T negative for acute abnormality-MRI of brain revealed no acute intracranial abnormality. MRI of cervical spine and thoracic spine revealed minimal to mild cervical spondylosis, mild thoracic spondylosis without significant spinal canal stenosisor neuroforaminal narrowing. MRI o f lumbar spine revealed lumbar spondylosis with up to mild spinal canal stenosis.-Echocardiogram ordered and is pending. Carotid Dopplers reveale d no hemodynamically significant stenosis.- aspiri n and statin therapy.-Neurochecks and fall precautions-PT/OT ST evaluation-Neurology following, appreciate recs. 10. Atypical chest pain-ACS protocol initiated in ED with EKG, troponin with no acute finding-Patient did receive aspirin and statin.-Morphine and nitroglycerin as needed.-Continue to trend troponin.-Echocardiogram ordered per stroke protocol.-Consider cardiology consult. 11. Anxiety-Ativan as needed Diet: RegularDVT prophylaxis: Lovenox CODE STATUS: Patient is a full code. Dispo: Pending neurology recommendations and echocardiogram. at 1250 RPT #:[id number] OF REPORTPRProgress [id number]:42:00C.[id number] l able for patient djqiQFNSWGNHLPGGGF3404-56-88F49:51:05 2023-05-18 00:55:00 [id number] [facility] [address] [place] [address] PATIENT NAME: NAZIA VALADEZ ADMIT DATE: 05/17/23ACCOUNT NO: [id number] ROEL Isabel NO: C.[id number] AGE: [age] REPORT TYPE: ELECTROCARDIOGRAM SEX: F ADMITTING PHYSICIAN:Tj Quesada MD ATTENDING PHYSICIAN:Tj Quesada MD Order:[id number] Reason : chest pain, tia/cva r/o, hx of tachycardia Test Date/Time Stamp:MonMay 18 2023 00:55:20Blood Pressure : / mmHGVent. Rate : 064 BPM Atrial Rate : 064 BPM P-R Int : 140 ms QRS Dur : 090 ms QT Int : 418 ms P-R-T Axes : 06 0 041 041 degrees QTc Int : 431 ms Normal sinus rhythmNormal ECG Confirmed by MD SUAREZ NATASHA ([id number]) on 05/18/2023 3:04:15 PM Referred By: Self Referred Confirmed by:NURY SUAREZ MD at 1504 PATIENT NAME: JOSTIN VALADEZ .[id number] AVAvailable for patient [id number]:04:31 2023-05-17 23:35:00 [id number]:35:00 [facility] History PhysicalREPORT#:[id number] REPORT STATUS: SignedREPORT INITIALIZATION DATE:05/17/23 TIME: 2334 PATIENT: NAZIA VALADEZ UNIT #: [id number]#: [id number] [address]: [address] AGE: 27 SEX: F ATTEND: Miguel Nina DOADM AUTHOR: Cleopatra Hameed NPREPT SERVICE DT/TIME: 05/17/232334* ALL edits or amendments must be made on the electronic/computer document * Cleopatra Hameed 05/17/232334:History of Present Illness HPIChief complaint:Right-sided weakness and chest painPCP:Patient states PCP is in [place], [place]. HPI:Patient is seen and examined in room [place] [address] with friend present at bedside. Patient is a pleasant 27-year-old female with a history of tachycardia , fibromyalgia, anxiety currently presenting to [facility] from [facility] due to right-sided weakness and chest pain. Patient reports 3 days of midsternal chest pain worse with movement, laughing, and hard to breathe and states she feels a "bump" in her chest. Reports she awoke yesterday morning with right upper extremity weakness, heaviness with numbness and tingling i n herfingers. Also reports dizziness, hot flashes, seeing spots, lightheadedness, nausea, pounding headache, fatigue, forgetfulness, and states she has been moving slower than usual. Reports 2 episodes of speaking but words did not makesense . Now reporting right lower extremity weakness wit h paresthesia and neck pain with a sharp shooting pain up to her taoist. Patient denies recent stress but states she does have 3 children and has had a tubal ligation. Reports LMP 04/25 but states she has irregular menses, her urine smell s funny, and expressed concerns for . No reports of recent sick contacts, fever, chills, vomiting, abdominal pain, changes in stool and also denies slurred speech, facial droop. At [facility], CT imaging of brain, C-spine, and ches t was negative for acute abnormality. Patient was transferred for this facility due to MRI for concerns for nerve compression and neurology consultation. Upon my evaluation, NIHSS equals 9 . Stroke protocol was initiated. Aspirin and atorvastatin were given. MRI and echocardiogram also ordered. Neurology has been consulted prior to transfer. I was asked to see the patient for medical evaluation. Patient is admitted to the medical surgical unit at this time. Hx Obtained From Patient, Friend HistoryAdditional medical history:Tachycardia, fibromyalgia, anxiety, irregular mensesPast surgical history:Reports: Bilateral tubal ligation. Family history:Reports : Diabetes, Heart disease, Hypertension, Stroke/TIA, Thyroid disorder. Alcohol use: Ligia s EtOH useDrug use: MarijuanaSmoking status for patients 13 years old or older: Never Smoker Medication/Allergy-Vaccine HxAllergies:Uncoded Allergies:MENGER (Intermediate, HIVES 05/18/23) Ambulatory status: Independent Review of SystemsAll systems rev neg: except as marked (se e hpi) Objective GeneralVS/I O:Vital Signs: Date Time Temp Pulse Resp B/P B/P Pulse O2 O2 Flow FiO2 Mean Ox Delivery Rate 05/18 0334 36.4 78 16 117/76 89.5 99 05/18 0029 36.8 70 16 130/84 99.4 96 05/17 1431 36.4 98 18 127/88 101 98 Room air 24 hour I O ending at 0700: 05/18 0700 05/17 1900 Intake Total Output Total Balance Patient 80.7 kg 80.7 kg Weight Weight Standing scale Standing scale Measurement Method PATIENT WEIGHT : Weight (lb): 177Weight (oz): 14.61Weight (kg): 80.7 Physical ExamGeneral appearance: alert, awakeHead/Eyes: atraumatic, clear cornea, EOMI, normal conjunctiva/sclera, normal eyelids/periorb., normocephalic, PERRLENT: mayuri l dentition, normal ear left, normal ear right, normal nose, normal pharynx, normal sinusNeck: full range of motion, non-tender, normal thyroid , supple/no meningismus, no bruit/NL carotids, no JVD, no masses or swellingCardiovascular: normal capillary refill, regular rate rhythmRespiratory : clear to auscultation, no distressAbdomen: non-tender, normal bowel sounds, soft, no distention, no guarding, no hernia, no mass/organomegaly, no reboundMusculoskeletal: normal inspectionSkin: dry, intactPsychiatry: normal affect, normal judgment/insight, normal mood, not homicidal, not suicidal, no hallucinations ResultsFindings/Data:Laboratory Tests 05/18 05/17 0152 1548 Chemistry POC Sodium (128 - 145 mmol/L) 147 H Sodium (137 - 145 mmol/L) 136 L POC Potassium (3.6 - 5.1 mmol/L) 3.9 Potassium (3.4 - 5.0 mmol/L) 3.7 POC Chlorid e (98 - 108 mmol/L) 102 Chloride (98 - 107 mmol/L) 103 Carbon Dioxide (22 - 30 mmol/L) 26 POC Total CO2 (18 - 33 mmol/L) 29 Anion Gap 11 POC Anion Gap (4 - 14) 16 H POC BUN (7 - 22 mg/dL) 6 L BUN (7 - 17 mg/dL) 9 Creatinine (0.5 - 1.0 mg/dL) 0. 6 POC Creatinine (0.6 - 1.2 mg/dL) 0.8 Glomerular Filtr Rate (mL/min) 128 Est GFR (CKD-EPI 2020) (>or=60 mL/min) 105 Glucose (74 - 106 mg/dL) 95 POC Glucose (73 - 118 mg/dL) 98 POC Calcium (8.0 - 10.3 mg/dL) 10.1 Calcium (8.4 - 10.2 mg/dL) 8. 9 Phosphorus (2.5 - 4.5 mg/dL) 4.0 Magnesium (1.6 - 2.3 mg/dL) 2.0 POC Total Bilirubin (0.2 - 1.6 mg/dL) 0.7 POC AST (11 - 38 U/L) 25 POC ALT (10 - 47 U/L) 13 POC Alk Phosphatase (42 - 141 U/L) 4 9 Troponin I (0.012 - 0.033 ng/mL) < 0.012 L NT-Pro-B Natriuret Pep (<20.0 - 95.3 pg/mL) < 20.0 L POC Total Protein (6.4 - 8.1 g/dL) 8.1 PO C Albumin (3.3 - 5.5 g/dL) 4.4 TSH (0.465 - 4.68 MIU/L) 2.750 Specimen Hemolysis (0 - 100 Index/DL) 16 Laboratory Tests 05/18 0152 Coagulation D-Dimer (0 - 500 ng/mLFEU) 273 Laboratory Tests 05/18 05/17 0152 1547 Hematology POC WBC (4 - 10.5 10 3/uL) 6.8 WBC (5.0 - 12.0 x10 3/uL) 6.9 POC RBC (3.93 - 5.22 1 0 6/uL) 4.21 RBC (4.20 - 5.40 x10 6/uL) 3.78 L Hgb (12.0 - 16.0 g/dL) 10.9 L POC Hgb (11.2 - 15.7 g/dL) 12.3 Hct (36.0 - 46.0 %) 33.1 L POC Hct (34.1 - 44.9 %) 36.3 POC MCV (79.4 - 94.8 fL) 86.2 MCV (81 - 99 fL) 88 POC MCH (25.6 - 32.2 pg ) 29.2 MCH (27 - 31 pg) 28.8 POC MCHC (32.2 - 35. 5 g/dL) 33.9 MCHC (33 - 37 g/dL) 32.9 L RDW (11.5 - 15.5 %) 12.1 POC RDW Coeff of Jesus (11.6 - 14.4 %) 12.5 POC Platelet Count (150 - 400 10 3/uL) 350 Plt Count (130 - 400 x10 3/uL) 278 POC MPV (9.4 - 12.3 fL) 10.1 MPV (9.4 - 16.4 fL) 9.9 Molly t % (Auto) (43 - 65 %) 45.7 Lymph % (Auto) (20.5 - 45.5 %) 41.5 Howard % (Auto) (5.5 - 11.7 %) 9.4 PO C Mixed Cells % (1.3 - 25.9 %) 10.1 Eos % (Auto) (0.9 - 2.9 %) 2.5 Baso % (Auto) (0.2 - 1.0 %) 0. 6 POC Neut # (1.56 - 6.13 10 3/uL) 3.90 Neut # (Auto) (2.2 - 4.8 x10 3/uL) 3.17 POC Lymph # (1.18 - 3.74 k/mm3) 2.20 Lymph # (Auto) (1.3 - 2.9 x10 3/uL) 2.87 POC Howard # (0.1 - 1.6 10 3/uL) 0.7 Howard # (Auto) (0.3 - 0.8 x10 3/uL) 0.6 5 Eos # (Auto) (0.0 - 0.2 x10 3/uL) 0.17 Baso # (Auto) (0.0 - 0.1 x10 3/uL) 0.04 Immature Gran % (0.0 - 2.0 %) 0.3 POC Lymphocytes % (19.3 - 51.7 %) 32.7 Nucleated RBC % (0 - 1.0 %) 0.0 POC Neutrophils % (34.0 - 71.1 %) 57.2 Radiology data:Recent Impressions:CAT SCAN - CT CHEST W/O CONTRAST 05/17 0713 Report Impression - Status: SIGNED Entered: 05/17/2023 1741 IMPRESSION: 1. Normal CT chest without contrastImpression By: Gumaro - Gretchen Thornton [facility] SCAN - CT HEAD/BRAIN W/O CONT 05/17 1515 * Report Impression - Status: SIGNED Entered: 05/17/2023 154 IMPRESSION: Negative noncontrast head CT. - --- CT cervical spine TECHNIQUE: CT examination of the cervical spine without contrast wasperformed on a helical scanner without contrast with coronal andsagittal reformatted imaging obtained. Scanning conducted in axialplane from skull base down to upper thoraci c spine. 1.25mm slicethickness acquired.CT dose lowering technique utilized, with adjustment of MA/kVaccording to patient size and automated exposure control. CLINICAL HISTORY: Right upper extremity weakness FINDINGS: Normal cervical lordosis. No acute fracture or subluxation. Prevertebral soft tissues appear unremarkable. The atlantoaxial jointis unremarkable. Intervertebral disc heights appear well-maintained, no significantuncovertebral or facet joint abnormality demonstrated by CT.The visualized lung apices are normal. IMPRESSION: Negative CT cervical spine, correlate with MRI neurocompression. Impression By: [email or web address] John Meyer [facility] SCAN - CT C-SPINE W/O CONT 04/20 1515 Report Impression - Status: SIGNED Entered: 05/17/2023 154 IMPRESSION: Negative noncontrast head CT. - --- CT cervical spine TECHNIQUE: CT examination of the cervical spine without contrast wasperformed on a helical scanner without contrast with coronal andsagittal reformatted imaging obtained. Scanning conducted in axialplane from skull base down to upper thoraci c spine. 1.25mm slicethickness acquired.CT dose lowering technique utilized, with adjustment of MA/kVaccording to patient size and automated exposure control. CLINICAL HISTORY: Right upper extremity weakness FINDINGS: Normal cervical lordosis. No acute fracture or subluxation. Prevertebral soft tissues appear unremarkable. The atlantoaxial jointis unremarkable. Intervertebral disc heights appear well-maintained, no significantuncovertebral or facet joint abnormality demonstrated by CT.The visualized lung apices are normal. IMPRESSION: Negative CT cervical spine, correlate with MRI neurocompression. Impression By: John Quiles MD Results: labs reviewed, vital sign s stable Scores NIH Stroke ScaleNIHSS applicable: YesNIHSS: NIHSS: Response Value Level of consciousness: Alert and responsive (0) 0 Ask month age: Both questions right (0) 0 Blink eyes/squeeze hands: Performs 1 task (1) 1 Horizontal EOM: NL side/side eye mvmt (0) 0 Visual higgins: Partial hemianopsia (1) 1 Facial palsy: Normal symmetry (0) 0 Right arm motor drift (10s) Drift, not touch bed (1) 1 Left arm motor drift (10s) No drift 10 sec (0) 0 Right le g motor drift (5s) No effort, limb fails (3) 3 Lef t leg motor drift (5s) No drift 5 sec (0) 0 Limb ataxia FNF/Heel-Abreu Ataxia in 1 limb (1) 1 Sensation (arms/legs/face): Pinprick less sharp (1) 1 Language aphasia: Mild loss fluency (1) 1 Dysarthria: No dysarthria (0) 0 Extinction/inattention: No extinct/inattent (0) 0 Total 9 NIHSS (from ED):Initial NIH Stroke Scale documented in ED Initial NIH Stroke Scale NIH Stroke Score date NIH Stroke Score time NIHSS applicable Level of consciousness Ask month age Blink eyes/squeeze hands Horizontal EOM Visual higgins Facial palsy Right arm motor drift (10s) Left arm motor drift (10s) Right leg motor drif t (5s) Left leg motor drift (5s) Limb Ataxia FNF/Heel-Abreu Sensation (arms/legs/face) Languag e Aphasia Dysarthria Extinction/Inattention Score Diagnosis, Assessment Plan Free Text DxA P NotesFree Text DxA P Notes:ASSESSMENT AND PLAN 1 . Right hemiplegia2. Paresthesia3. Headache4. Aphasia5. Forgetfulness6. Visual changes7. Lightheadedness8. Difficulty ambulating9. Fatigue-NIH equals 9-TIA/CVA protocol versus nerve compression versus conversion disorder -Brain, C-spine, and chest CT negative for acute abnormality-MRI of the brain, C,T and L-spine were ordered-Echocardiogram ordered and is pending.- aspirin and statin therapy.-Allow permissive hypertension-Neurochecks and fall precautions-PT/OT ST evaluation-Neurology has been consulted. Patient recommendations.-Patient is admitted to the medical surgical unit at this time. 10. Atypical chest pain-ACS protocol initiated in ED with EKG, troponin with no acute finding-Patient did receive aspirin and statin.-Morphine and nitroglycerin as needed.-Continue to trend troponin.-Echocardiogram ordered per stroke protocol.-Consider cardiology consult. 11. Anxiety-Ativan as needed Diet: RegularDVT prophylaxis: Lovenox CODE STATUS: Patient is a full code. [facility] Free Text Quality NotesFree text Quality notes: [facility] Med Reconciliation[X] I have utilized all available immediate resources to obtain, update, or review the patient s current medications (including all prescriptions, ldtz-uat-pkmfwwp products, herbals, cannabis/cannabidiol products, and vitamin/mineral/dietary (nutritional) supplements). [SATISFIES [facility] PERFORMANCE] If Yes, Stop Here[] The patient is not eligible for medication reconciliation; the patient is in an emergent medical situation where delaying treatment would jeopardize the patient s health. [[facility] PERFORMANCE EXCEPTION/EXCLUSION][] I did NOT confirm, update or review the patient's current list of medicationstoday. [DOES NOT SATISFY [facility] PERFORMANCE] Leonard Silva 05/19/23 0228:Attestations Physician AttestationAgree w/findings plan:Agree with the findings and plan as documented by the ADMISSIONS ASSISTANT. at 0511 at 0228 RPT #:[id number] OF REPORTHPHistory and physical [id number]:[id number] AVAvailable for patient [id number]:12:07 2023-05-17 19:14:00 [id number]:14:00 [facility] ([facility]Neurology Consult Not e - BriefREPORT#:[id number] REPORT STATUS: SignedREPORT INITIALIZATION DATE:05/17/23 TIME: 1913 PATIENT: NAZIA VALADEZ UNIT #: [id number]#: [id number] [address] AGE: 27 SEX: F ATTEND: Miguel Nina DOADM AUTHOR: Serina Mccray MDREPT SERVICE DT/TIME : 05/17/231913* ALL edits or amendments must be made on the electronic/computer document * History of Present Illness HPIRequesting Clinician: Marvin Aquino M.D.Reason for consult:RUE Motor WeaknessChief complaint:RUE Motor WeaknessHistory of present illness:Ms. Valadez is a 27 y/o lady with a PMH significant for major depressive disorder, PTSD and other medical illnesses who presents for evaluation of multiple somatic complaints. She reports > 1 yea r history of psychiatric illness and is currently being treated by a therapist. She initially presented to an OSH with complaints of nausea, vertigo, cephalgia,visual impairment, speech impairment, chest pain, lightheadedness, difficulty breathing, paresthesias in the digits , facial pain, lower extremity motor weakness, memory loss and gait ataxia. 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 She underwent neuroimaging and diagnostic testin g of the neuroaxis which proved unremarkable (cranial CT, cranial MRI, CT of the cervical spine, MRI of the lumbar spine and a carotid U/S). She reports 4/7 days she feels like "throwing in the towel". She denies SI or HI and admits to "severe stressors" without defining them. Neurology was consulted for further evaluation and treatment.Hx Obtained From Gladys conley History - Adult longitudinalSmoking status for patients 13 years old or older: Former SmokerAllergies:Uncoded Allergies:WEINER (Intermediate, HIVES 05/18/23) Neuro Brief Consult Note Neuro Brief Consult NoteFree Text A P:Assessment:Ms. Valadez is a 27 y/o lady with a PMH significant for major depressive disorder, PTSD and other medical illnesses who presents fo r evaluation of multiple somatic complaints in the setting of major depressive disorder and PTSD. The pt.'s clinical presentation is nonfocal and concerning for conversion disorder. Plan:* Conversion disorder - The pt. is agreeable to having consultation with Psychiatry* Cranial CT, cranial MRI, CT of the cervical spine, lumbar MR I and carotid U/S were personally reviewed and proved unremarkable.* Neurology to sign off, as there are no acute neurologic issues to address in this patient* Continue supportive care* Greater than 65 minutes were spent reviewing the medical record, examining thept. and discussing the care plan with another provider, the pt. and the R.N. staff. General appearance: awake (withdrawn)Neuro/CORE WINDER: alert, oriented X 4, mayuri l speech (volitional speech disorder), EOMI, PERRL , CN II-XII intact, no motor deficits, no sensory deficits, no cerebellardeficits, DTRs: Deferred. Gait: Deferred.Findings/Data:Laboratory Tests: 05/17 05/17 1548 1547 Chemistry POC Sodium (128 - 145 mmol/L) 147 H POC Potassium (3.6 - 5.1 mmol/L) 3.9 POC Chloride (98 - 108 mmol/L) 102 POC Total CO2 (18 - 33 mmol/L) 29 POC Anion Gap (4 - 14) 16 H POC BUN (7 - 22 mg/dL) 6 L POC Creatinine (0.6 - 1.2 mg/dL) 0.8 Est GFR (CKD-EP I 2020) (>or=60 mL/min) 105 POC Glucose (73 - 118 mg/dL) 98 POC Calcium (8.0 - 10.3 mg/dL) 10.1 PO C Total Bilirubin (0.2 - 1.6 mg/dL) 0.7 POC AST (1 1 - 38 U/L) 25 POC ALT (10 - 47 U/L) 13 POC Alk Phosphatase (42 - 141 U/L) 49 POC Total Protein (6.4 - 8.1 g/dL) 8.1 POC Albumin (3.3 - 5.5 g/dL ) 4.4 Hematology POC WBC (4 - 10.5 10 3/uL) 6.8 POC RBC (3.93 - 5.22 10 6/uL) 4.21 POC Hgb (11.2 - 15.7 g/dL) 12.3 POC Hct (34.1 - 44.9 %) 36.3 POC MCV (79.4 - 94.8 fL) 86.2 POC MCH (25.6 - 32.2 pg) 29.2 POC MCHC (32.2 - 35.5 g/dL) 33.9 POC RDW Coeff of Jesus (11.6 - 14.4 %) 12.5 POC Platelet Count (150 - 400 10 3/uL) 350 POC MPV (9.4 - 12.3 fL) 10.1 POC Mixed Cells % (1.3 - 25.9 %) 10.1 POC Neut # (1.56 - 6.13 10 3/uL) 3.90 POC Lymph # (1.18 - 3.74 k/mm3) 2.20 POC Howard # (0.1 - 1.6 10 3/uL) 0.7 POC Lymphocytes % (19.3 - 51.7 %) 32.7 POC Neutrophils % (34.0 - 71.1 %) 57.2 Recent Impressions:CAT SCAN - CT CHEST W/O CONTRAST 05/17 1515 Report Impression - Status: SIGNED Entered: 05/17/2023 1639 IMPRESSION: 1. Normal CT chest without contrastImpression By: [email or web address] Gretchen Gruber [facility] - CT HEAD/BRAIN W/O CONT 05/17 1515 * Report Impression - Status: SIGNED Entered: 05/17/2023 1542 IMPRESSION: Negative noncontrast head CT. - --- CT cervical spine TECHNIQUE: CT examination of the cervical spine without contrast wasperformed on a helical scanner without contrast with coronal andsagittal reformatted imaging obtained. Scanning conducted in axialplane from skull base down to upper thoraci c spine. 1.25mm slicethickness acquired.CT dose lowering technique utilized, with adjustment of MA/kVaccording to patient size and automated exposure control. CLINICAL HISTORY: Right upper extremity weakness FINDINGS: Normal cervical lordosis. No acute fracture or subluxation. Prevertebral soft tissues appear unremarkable. The atlantoaxial jointis unremarkable. Intervertebral disc heights appear well-maintained, no significantuncovertebral or facet joint abnormality demonstrated by CT.The visualized lung apices are normal. IMPRESSION: Negative CT cervical spine, correlate with MRI neurocompression. Impression By: John Quiles [facility] SCAN - CT C-SPINE W/O CONT 04/20 151 Report Impression - Status: SIGNED Entered: 05/17/2023 154 IMPRESSION: Negative noncontrast head CT. - --- CT cervical spine TECHNIQUE: CT examination of the cervical spine without contrast wasperformed on a helical scanner without contrast with coronal andsagittal reformatted imaging obtained. Scanning conducted in axialplane from skull base down to upper thoraci c spine. 1.25mm slicethickness acquired.CT dose lowering technique utilized, with adjustment of MA/kVaccording to patient size and automated exposure control. CLINICAL HISTORY: Right upper extremity weakness FINDINGS: Normal cervical lordosis. No acute fracture or subluxation. Prevertebral soft tissues appear unremarkable. The atlantoaxial jointis unremarkable. Intervertebral disc heights appear well-maintained, no significantuncovertebral or facet joint abnormality demonstrated by CT.The visualized lung apices are normal. IMPRESSION: Negative CT cervical spine, correlate with MRI neurocompression. Impression By: John Quiles MD Recent Impressions:CAT SCAN - CT CHEST W/O CONTRAST 05/17 1515 Report Impression - Status: SIGNED Entered: 05/17/2023 1639 IMPRESSION: 1. Normal CT chest without contrastImpression By: [email or web address] - Gretchen Thornton [facility] - CT HEAD/BRAIN W/O CONT 05/17 1515 * Report Impression - Status: SIGNED Entered: 05/17/2023 154 IMPRESSION: Negative noncontrast head CT. - --- CT cervical spine TECHNIQUE: CT examination of the cervical spine without contrast wasperformed on a helical scanner without contrast with coronal andsagittal reformatted imaging obtained. Scanning conducted in axialplane from skull base down to upper thoraci c spine. 1.25mm slicethickness acquired.CT dose lowering technique utilized, with adjustment of MA/kVaccording to patient size and automated exposure control. CLINICAL HISTORY: Right upper extremity weakness FINDINGS: Normal cervical lordosis. No acute fracture or subluxation. Prevertebral soft tissues appear unremarkable. The atlantoaxial jointis unremarkable. Intervertebral disc heights appear well-maintained, no significantuncovertebral or facet joint abnormality demonstrated by CT.The visualized lung apices are normal. IMPRESSION: Negative CT cervical spine, correlate with MRI neurocompression. Impression By: John Quiles [facility] SCAN - CT C-SPINE W/O CONT 04/20 9 1515 Report Impression - Status: SIGNED Entered: 05/17/2023 1542 IMPRESSION: Negative noncontrast head CT. - --- CT cervical spine TECHNIQUE: CT examination of the cervical spine without contrast wasperformed on a helical scanner without contrast with coronal andsagittal reformatted imaging obtained. Scanning conducted in axialplane from skull base down to upper thoraci c spine. 1.25mm slicethickness acquired.CT dose lowering technique utilized, with adjustment of MA/kVaccording to patient size and automated exposure control. CLINICAL HISTORY: Right upper extremity weakness FINDINGS: Normal cervical lordosis. No acute fracture or subluxation. Prevertebral soft tissues appear unremarkable. The atlantoaxial jointis unremarkable. Intervertebral disc heights appear well-maintained, no significantuncovertebral or facet joint abnormality demonstrated by CT.The visualized lung apices are normal. IMPRESSION: Negative CT cervical spine, correlate with MRI neurocompression. Impression By: John Quiles MD Critical care time: Minutes: 65 at 0159 RPT #:[id number] O F [id number]:14:00C.PDOC 2 [id number] for patient [id number]:59:35
[2023-05-24 01:20] LABS: Specific Gravity 1.021 (1.005-1.030)
[2023-05-24 01:22] LABS: Specific Gravity 1.021 (1.005-1.030); Urine Bacteria <20 /HPF (<20); Urine Bilirubin NEGATIVE (Negative); Urine Blood 3+ (OVER) (Negative); Urine Clarity Extremely Turbid (Clear); Urine Color Light-Orange (Yellow); Urine Glucose NEGATIVE (Negative); Urine Mucus 4+ /HPF (None Seen); Urine Protein 2+ (Negative); Urine RBC >50 /HPF (None Seen); Urine Urobilinogen 1+ (Normal); Urine WBC Clump Many /HPF (None Seen)
--- NOTE | 2023-05-24 01:46 | EDPHYS ---
Physician Documentation [facility] Name: Lori Guzman Age: 27 yrs Sex: Female : 1995 Arrival Date: 05/24/2023 Time: 00:21 Bed DIS3 Private MD: ED Physician Suman Cutler HPI: 05/24 00:49 This 27 yrs old Female presents to ER via Unassigned with complaints of kb Urinary Frequency. 00:49 Patient is a 27-year-old female who presents for 2-day history of burning with kb urination and suprapubic pain. Pain is now radiating to her back on both sides. Denies fever.. 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 ROS: 00:48 Constitutional: Negative for fever, chills, and weight loss, kb 00:48 Abdomen/GI: Positive for abdominal pain, nausea, of the suprapubic area, 00:48 : Positive for urinary symptoms, burning with urination, 00:48 All other systems are negative, Exam: 00:48 Constitutional: This is a well developed, well nourished patient who is awake, alert, kb and in no acute distress. Head/Face: Normocephalic, atraumatic. ENT: Moist Mucous membranes Cardiovascular: Regular rate Respiratory: Respirations even and unlabored. No increased work of breathing. Talking in full sentences Skin: Warm, dry with normal turgor. Normal color. MS/ Extremity: Pulses equal, no cyanosis. Neurovascular intact. Full, normal range of motion. Neuro: Awake and alert, GCS 15, oriented to person, place, time, and situation. Moves all extremities. Normal gait. 00:48 Abdomen/GI: Inspection: abdomen appears normal, Bowel sounds: normal, Palpation: moderate abdominal tenderness, in the suprapubic area, 00:48 Back: pain, that is mild, of the low back area, Vital Signs: 00:42 Weight 80.29 kg; Height 5 ft. 6 in. ; Pain 8/10; vc1 02:08 BP 112 / 63; Pulse 77; Resp 18; Pulse Ox 100% on R/A; oe 00:42 Body Mass Index 28.57 (80.29 kg, 167.64 cm) vc1 00:42 Pain Scale: Adult vc1 Cecile Coma Score: 01:41 Eye Response: spontaneous(4). Motor Response: obeys commands(6). Verbal Response: sp4 oriented(5). Total: 15. MDM: 00:27 Patient medically screened. kb 00:49 Differential diagnosis: UTI, pyelonephritis, nephrolithiasis. Data reviewed: vital kb signs, nurses notes. 00:57 Transition of care: After a detail discussion of the patient's case, care is kb transferred to Suman Cutler MD. 01:41 Differential Diagnosis altered mental status, sepsis, flu. Data reviewed: lab test sp4 result(s), urinalysis, UPT: negative. ED course: Patient has signs of UTI on urinalysis. Will treat with cephalexin. 12 00:27 Order name: Test, Urine; Complete Time: 01:36 kb 12 00:27 Order name: Urinalysis w/ reflexes; Complete Time: 01:36 kb 05/24 01:26 Order name: Urine Culture EDMS Administered Medications: 02:08 Drug: Acetaminophen-Codeine PO (300 mg-30 mg) 2 tabs PO once; RASS on ADMIN: Combtv4, vc1 Very Agttd3, Agttd2, Rstlss1, AlertClm0, Drwsy-1, Lt Sdtn-2, Mod Sdtn-3, Dp Sdtn-4, UnArsble-5 Route: PO; 02:09 Follow up: Response: Medication administered at discharge. vc1 02:08 Drug: Phenazopyridine PO 200 mg PO once Route: PO; vc1 02:09 Follow up: Response: Medication administered at discharge. vc1 02:08 Drug: Ondansetron PO 4 mg PO once Route: PO; vc1 02:09 Follow up: Response: Medication administered at discharge. vc1 02:08 Drug: Cephalexin PO 500 mg PO once Route: PO; vc1 02:09 Follow up: Response: Medication administered at discharge. vc1 02:09 Drug: Ibuprofen PO 800 mg PO once Route: PO; vc1 02:09 Follow up: Response: Medication administered at discharge. vc1 Disposition: 01:41 Co-signature as Attending Physician, Suman Cutler MD I agree with the assessment sp4 and plan of care. I reviewed the patient's care provided by Advanced Practice Provider \T\ agree w/ the diagnosis \T\ care plan. I personally saw the pt \T\ performed a substantive portion of the visit, incldng all aspects of the (History/Exam/Medical Decision Making). Disposition Summary: 05/24/23 01:45 Discharge Ordered Notes: Location: Home sp4 Problem: new sp4 Symptoms: have improved sp4 Condition: Stable sp4 Diagnosis - UTI/ Urinary tract infection, site not specified sp4 - Acute cystitis sp4 Followup: sp4 - With: Private Physician - When: 7 - 10 days - Reason: Recheck today's complaints Discharge Instructions: - Discharge Summary Sheet sp4 - Urinary Tract Infection, Adult sp4 Forms: - Patient Portal Instructions sp4 Prescriptions: - Cephalexin 500 mg Oral Capsule - take 1 capsule ORAL route every 12 hours for 10 days; 20 capsule; Refills: 0, sp4 Product Selection Permitted - Ibuprofen 600 mg Oral Tablet - take 1 tablet ORAL route every 6 hours As needed take with food; 30 tablet; sp4 Refills: 0, Product Selection Permitted - Pyridium 200 mg Oral Tablet - take 1 tablet ORAL route every 8 hours for 3 days; 9 tablet; Refills: 0, sp4 Product Selection Permitted Signatures: Dispatcher [employer] Evelyn Velasquez, ROGER DICKENS-Marly King, RN RN vc1 Suman Cutler MD MD sp4
--- NOTE | 2023-05-24 01:46 | ER ---
Nurse's Notes [facility] Name: Lori Guzman Age: 27 yrs Sex: Female : 1995 Arrival Date: 05/24/2023 Time: 00:21 Bed DIS3 Private MD: Diagnosis: UTI/ Urinary tract infection, site not specified;Acute cystitis Presentation: 05/24 00:42 Chief complaint: Patient states: suprapubic pain for 2 days. Coronavirus screen: vc1 Vaccine status: Patient reports receiving the 2nd dose of the covid vaccine. [employer] Client denies travel out of the [place] in the last 14 days. At this time, the client does not indicate any symptoms associated with coronavirus-19. Ebola Screen: Patient negative for fever greater than or equal to 101.5 degrees Fahrenheit, and additional compatible Ebola Virus Disease symptoms Patient denies exposure to infectious person. Patient denies travel to an Ebola-affected area in the 21 days before illness onset. No symptoms or risks identified at this time. Risk Assessment: Do you want to hurt yourself or someone else? Patient reports no desire to harm self or others. Onset of symptoms was May 24, 2023. 00:42 Method Of Arrival: Ambulatory vc1 00:42 Acuity: HERBERT 3 vc1 02:10 Initial Sepsis Screen: Does the patient meet any 2 criteria? No. Patient's initial vc1 sepsis screen is negative. Does the patient have a suspected source of infection? Yes: Dysuria/Frequency/Urgency/UTI. Triage Assessment: 00:58 General: Appears in no apparent distress. uncomfortable, Behavior is calm, cooperative, vc1 appropriate for age. Pain: Complains of pain in meatus and low back area and suprapubic area Pain radiates to low back area Pain currently is 8 out of 10 on a pain scale. Quality of pain is described as burning, sharp, Noted to be grimacing. EENT: No deficits noted. No signs and/or symptoms were reported regarding the EENT system. Neuro: Level of Consciousness is awake, alert, obeys commands, Oriented to person, place, time, situation, Appropriate for age. Cardiovascular: No deficits noted. Respiratory: Airway is patent Respiratory effort is even, unlabored, Respiratory pattern is regular, symmetrical. GI: No deficits noted. No signs and/or symptoms were reported involving the gastrointestinal system. : Reports burning with urination, cramping, lower back urinary frequency, urine has strong odor. Derm: No deficits noted. No signs and/or symptoms reported regarding the dermatologic system. Musculoskeletal: No deficits noted. No signs and/or symptoms reported regarding the musculoskeletal system. 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 Screenin:00 [facility] ED Fall Risk Assessment (Adult) History of falling in the last 3 months, vc1 including since admission No falls in past 3 months (0 pts) Confusion or Disorientation No (0 pts) Intoxicated or Sedated No (0 pts) Impaired Gait No (0 pts) Mobility Assist Device Used No (0 pt) Altered Elimination No (0 pt) Score/Fall Risk Level 0 - 2 = Low Risk Oriented to surroundings, Maintained a safe environment, Educated pt \T\ family on fall prevention, incl call for assistance when getting out of bed. Abuse screen: Denies threats or abuse. Nutritional screening: No deficits noted. Tuberculosis screening: No symptoms or risk factors identified. Assessment: 02:10 Reassessment: No changes from previously documented assessment. Patient and/or family vc1 updated on plan of care and expected duration. Pain level reassessed. Patient is alert, oriented x 3, equal unlabored respirations, skin warm/dry/pink. Vital Signs: 00:42 Weight 80.29 kg; Height 5 ft. 6 in. ; Pain 8/10; vc1 02:08 BP 112 / 63; Pulse 77; Resp 18; Pulse Ox 100% on R/A; oe 00:42 Body Mass Index 28.57 (80.29 kg, 167.64 cm) vc1 00:42 Pain Scale: Adult vc1 Cecile Coma Score: 01:41 Eye Response: spontaneous(4). Motor Response: obeys commands(6). Verbal Response: sp4 oriented(5). Total: 15. ED Course: 00:26 Patient arrived in ED. ag3 00:27 Evelyn Guallpa FNP-C is [facility]. kb 00:27 Suman Cutler MD is Attending Physician. kb 00:58 Triage completed. vc1 00:58 Arm band placed on right wrist. vc1 00:58 Test, Urine Sent. vc1 00:58 Urinalysis w/ reflexes Sent. vc1 02:10 No provider procedures requiring assistance completed. Patient did not have IV access vc1 during this emergency room visit. Administered Medications: 02:08 Drug: Acetaminophen-Codeine PO (300 mg-30 mg) 2 tabs PO once; RASS on ADMIN: Combtv4, vc1 Very Agttd3, Agttd2, Rstlss1, AlertClm0, Drwsy-1, Lt Sdtn-2, Mod Sdtn-3, Dp Sdtn-4, UnArsble-5 Route: PO; 02:09 Follow up: Response: Medication administered at discharge. vc1 02:08 Drug: Phenazopyridine PO 200 mg PO once Route: PO; vc1 02:09 Follow up: Response: Medication administered at discharge. vc1 02:08 Drug: Ondansetron PO 4 mg PO once Route: PO; vc1 02:09 Follow up: Response: Medication administered at discharge. vc1 02:08 Drug: Cephalexin PO 500 mg PO once Route: PO; vc1 02:09 Follow up: Response: Medication administered at discharge. vc1 02:09 Drug: Ibuprofen PO 800 mg PO once Route: PO; vc1 02:09 Follow up: Response: Medication administered at discharge. vc1 Medication: 01:01 VIS not applicable for this client. vc1 Outcome: 01:45 Discharge ordered by . sp4 02:10 Discharged to home ambulatory, vc1 02:10 Condition: good 02:10 Discharge instructions given to patient, Instructed on discharge instructions, follow up and referral plans. medication usage, Demonstrated understanding of instructions, follow-up care, medications, Prescriptions given X 3, 02:11 Patient left the ED. vc1 Signatures: Evelyn Guallpa, [employer]-Augustin Candelaria Alice ag3 Marly Vargas, NAVARRO RN vc1 Suman Cutler MD MD sp4
[2023-05-24] MEDS ORDERED: PHENAZOPYRIDINE 100MG TAB PO ONE (02:15)
[2023-05-24] MEDS ORDERED: CODEINE 30MG/APAP 300MG TAB ONE (02:16)
[2023-05-24] MEDS ORDERED: ONDANSETRON 4 MG (ODT) TAB ONE (02:16)
[2023-05-24] MEDS ORDERED: IBUPROFEN 400 MG TAB ONE (02:16)
[2023-05-24] MEDS ORDERED: CEPHALEXIN 250 MG CAP ONE (02:16)
[2023-05-24 14:23] VITALS: BP 112/63; O2SAT 100
== END 2023-05-24 02:11 | disposition home or self-care (01) ==
LOC: ER 00:21
DX: N30.00 Acute cystitis without hematuria (principal)
CPT/HCPCS: 81001; 81025; 87077; 87086; 87088; 87186; 99283; Q0162

== ENCOUNTER 2025-03-19 06:27 | Emergency (ER) | payer OTHER, SELFPAY ==
[2025-03-19] MEDS ORDERED: LEVETIRACETAM 500 MG/5 ML VIAL IV ONE (07:09)
[2025-03-19] MEDS ORDERED: LORazepam 2 MG/ML VIAL ONE (07:09)
[2025-03-19] MEDS ORDERED: NA CHLORIDE 0.9% 100 ML ONE (07:09)
[2025-03-19 07:11] LABS: Absolute Lymphocytes (CBC) 2.0 K/uL (0.7-4.9); Hematocrit 33.2 % (36.0-45.0); Hemoglobin 11.3 g/dL (12.0-15.0); MCH 28.6 pg (27.0-35.0); MCHC 34.1 g/dL (32.0-36.0); MCV 84.0 fL (80-100); MPV 8.4 fL (7.6-11.3); Nucleated RBC Absolute Count 0.0 (0-0); Nucleated Red Blood Cells % 0.0 % (0-0); RBC Red Blood Cell Count 3.95 M/uL (3.86-4.86); White Blood Count 6.50 thou/uL (4.3-10.9)
[2025-03-19 07:22] LABS: PT Prothrombin Time 12.2 SECONDS (10-13.0); PTT, Activated Partial Thromb 30.4 SECONDS (27.2-37.4); Protime INR 1.08
[2025-03-19 07:33] LABS: ALT/SGPT 23 U/L (13-56); AST/SGOT 17 U/L (15-37); Albumin 3.4 g/dL (3.4-5.0); Albumin/Globulin Ratio 0.9 (1.1-1.8); Alkaline Phosphatase 49 U/L (45-117); Anion Gap 10.9 mEq/L (5.0-15.0); BUN Blood Urea Nitrogen 7 mg/dL (7-18); Bilirubin Indirect, Calculated 0.1 mg/dL (0.2-0.8); Globulin 3.9 g/dL (2.3-3.5); Glucose Level 115 mg/dL (74-106); Magnesium 2.1 mg/dL (1.6-2.4); Potassium 3.9 mEq/L (3.5-5.1); Troponin High Sensitivity < 3.0 pg/mL (<58.9)
--- NOTE | 2025-03-19 07:35 | RAD REPORT ---
EXAMINATION: Head Brain Wo Cont CLINICAL INDICATION: Female, 29 years old.SEIZURE TECHNIQUE: Axial CT images from the skull base to the vertex without intravenous contrast. Coronal an d sagittal reformatted images were created from the data set. One or more of the following dose reduction techniques were used: Automated exposure control, adjustment of the mA and/or kV according to patient size, and/or iterative reconstruction. Unless otherwise specified, incidental findings do not require dedicated imaging follow-up. [id number]. COMPARISON: No prior exams FINDINGS: INTRACRANIAL: No acute intracranial hemorrhage. No acute large vascular territory infarct. No hydroce phalus. No mass effect or midline shift. No significant white matter disease. VASCULATURE: No visualized abnormalities in the arteries or dural venous sinuses. SCALP/SKULL: No calvarial fracture identified. No acute soft tissue abnormality. SINUSES: The visualized paranasal sinuses are mostly clear. No significant mastoid fluid. IMPRESSION: No acute intracranial abnormality.
--- NOTE | 2025-03-19 08:27 | ER ---
Nurse's Notes [facility] Name: Lori Guzman Age: 29 yrs Sex: Female : 1995 Arrival Date: 03/19/2025 Time: 06:27 Bed 6 Private MD: Diagnosis: Other seizures;Elevated blood-pressure reading, without diagnosis of hypertension Presentation: 03/19 06:51 Chief complaint: EMS states: Pt was driving to work this morning and called her aunt kd3 and said she doesn't feel well. pt then pulled over to the side of the road and called 911 because she felt like she was going to pass out. Pt's aunt reports that she has been having episodes and is unsure if she is having seizures or not. On scene, EMS reports that the patient was verbally unresponsive with eye twitching but she came out of it and was alert and oriented. Pt was administered IV Versed 5 mg in route. Coronavirus screen: Vaccine status: Patient reports receiving the 2nd dose of the covid vaccine. Ebola Screen: No symptoms or risks identified at this time. Initial Sepsis Screen: Does the patient meet any 2 criteria? No. Patient's initial sepsis screen is negative. Does the patient have a suspected source of infection? No. Patient's initial sepsis screen is negative. Risk Assessment: Do you want to hurt yourself or someone else? Patient reports no desire to harm self or others. Onset of symptoms was March 19, 2025. 06:51 Method Of Arrival: EMS: [facility] kd3 06:51 Acuity: HERBERT 3 kd3 Triage Assessment: 06:55 General: Appears in no apparent distress. Behavior is drowsy. Pain: Denies pain. Neuro: kd3 Level of Consciousness is awake, obeys commands, Oriented to person, place, time, situation. Historical: - Allergies: 06:55 Iodinated Contrast Media - IV Dye; kd3 - Immunization history:: Adult Immunizations up to date. - Infectious Disease History:: Denies. - Social history:: Smoking status: Reported history of juuling and/or vaping. Screenin:58 [facility] ED Fall Risk Assessment (Adult) History of falling in the last 3 months, kd3 including since admission No falls in past 3 months (0 pts) Confusion or Disorientation No (0 pts) Intoxicated or Sedated No (0 pts) Impaired Gait No (0 pts) Mobility Assist Device Used No (0 pt) Altered Elimination No (0 pt) Score/Fall Risk Level 0 - 2 = Low Risk Maintained a safe environment. Abuse screen: Denies threats or abuse. Denies injuries from another. Nutritional screening: No deficits noted. Tuberculosis screening: No symptoms or risk factors identified. Assessment: 06:58 General: Appears in no apparent distress. Behavior is drowsy. Cardiovascular: Capillary kd3 refill < 3 seconds Patient's skin is warm and dry. Respiratory: Airway is patent Trachea midline Respiratory effort is even, unlabored, Respiratory pattern is regular, symmetrical. GI: No signs and/or symptoms were reported involving the gastrointestinal system. 07:05 Reassessment: This nurse at bedside and Dr. Villaseñor. Pt appears to have fluttering like mb9 action in eyes and blank stare for approximately 4 minutes. Pt responds to sternal rub and painful stimuli. VO for 1 g of Keppra. Airway patient, respirations even and unlabored. 07:27 Reassessment: Patient appears in no apparent distress at this time. Patient and/or db family updated on plan of care and expected duration. Pain level reassessed. FAMILY IS AT BEDSIDE. 09:22 Reassessment: Patient appears in no apparent distress at this time. Patient and/or db family updated on plan of care and expected duration. Pain level reassessed. Patient is alert, oriented x 3, equal unlabored respirations, skin warm/dry/pink. SITTING UP TALKING WITH FAMILY. Neuro: Level of Consciousness is awake, alert, obeys commands, Oriented to person, place, time, situation. 10:15 Reassessment: Patient appears in no apparent distress at this time. Patient and/or db family updated on plan of care and expected duration. Pain level reassessed. Patient is alert, oriented x 3, equal unlabored respirations, skin warm/dry/pink. 11:00 General: Appears in no apparent distress. comfortable, Behavior is calm, cooperative. db 12:00 Reassessment: Patient appears in no apparent distress at this time. Patient and/or db family updated on plan of care and expected duration. Pain level reassessed. Patient is alert, oriented x 3, equal unlabored respirations, skin warm/dry/pink. 13:00 Reassessment: Patient appears in no apparent distress at this time. Patient and/or db family updated on plan of care and expected duration. Pain level reassessed. Patient is alert, oriented x 3, equal unlabored respirations, skin warm/dry/pink. 14:14 Reassessment: REPORT TO ZAKIYA BRICEÑO. bp 15:10 Reassessment: Patient appears in no apparent distress at this time. Patient and/or db family updated on plan of care and expected duration. Pain level reassessed. Patient is alert, oriented x 3, equal unlabored respirations, skin warm/dry/pink. PT FOUND STANDING IN ROOM. ASSISTED PT BACK IN BED FOR SAFETY. PT ASSISTED TO BEDPAN. 15:24 Reassessment: TRANSFER EMS AT B/S. bp Vital Signs: 06:51 BP 120 / 73; Pulse 69; Resp 16; Temp 98.4; Pulse Ox 99% on R/A; Weight 99.5 kg; kd3 07:26 BP 144 / 77; Pulse 78; Resp 16; Pulse Ox 100% on R/A; mb9 08:30 BP 119 / 56; Pulse 63; Resp 16; Pulse Ox 99% on R/A; db 09:15 BP 132 / 72; Pulse 81; Resp 22; Pulse Ox 100% on R/A; db 10:00 BP 107 / 69; Pulse 61; Resp 14; Pulse Ox 97% on R/A; db 10:30 BP 104 / 68; Pulse 64; Resp 14; Pulse Ox 96% on R/A; db 11:30 BP 106 / 60; Pulse 58; Resp 14; Pulse Ox 97% on R/A; db 12:00 BP 99 / 63; Pulse 60; Resp 15; Pulse Ox 98% ; db 13:00 BP 109 / 64; Pulse 61; Resp 14; Pulse Ox 98% on R/A; db 14:00 BP 117 / 76; Pulse 72; Resp 15; Pulse Ox 99% ; db 15:00 BP 98 / 87; Pulse 72; Resp 16; Pulse Ox 98% ; db 15:24 BP 96 / 62; Pulse 73; Resp 16; Pulse Ox 99% ; bp Cecile Coma Score: 06:55 Eye Response: spontaneous(4). Motor Response: obeys commands(6). Verbal Response: kd3 oriented(5). Total: 15. ED Course: 06:36 Patient arrived in ED. gm2 06:39 Jose Villaseñor DO is Private Physician. sp3 06:40 Jose Villaseñor DO is Attending Physician. sp3 06:51 Yisel Santillan, NAVARRO is Primary Nurse. kd3 06:55 Triage completed. kd3 06:55 Arm band placed on left wrist. kd3 06:58 Seizure precautions initiated. kd3 06:58 Basic Metabolic Panel Sent. cc6 06:58 CBC with Diff Sent. cc6 06:58 Hepatic Function Sent. cc6 06:58 Magnesium Sent. cc6 06:58 Protime (+inr) Sent. cc6 06:58 Ptt, Activated Sent. cc6 06:58 Troponin High Sensitivity Sent. cc6 07:05 CT Head Brain wo Cont In Process Unspecified. EDMS 07:21 Warm blanket given. Pillow given. One-on-one care X 15 minutes. mb9 07:25 Inserted saline lock: 20 gauge in left forearm, using aseptic technique. Blood mb9 collected. Flushed with 10 mL NS. 07:25 Inserted saline lock: 22 gauge in left hand, using aseptic technique. Blood collected. mb9 Flushed with 10 mL NS. 08:32 initiated transfer to [facility]. bd 14:05 pt accepted in transfer to [facility] neuro icu [address] [place] [id number] Dye admin bd approval given by Gela Hernández RN. 14:14 No provider procedures requiring assistance completed. Patient transferred, IV remains bp in place. 15:12 Provided Education on: TRANSFER. db Administered Medications: 07:14 Drug: Keppra IV 1000 mg IV at calculated rate once Route: IV; Rate: calculated rate; db Site: left antecubital; 07:30 Follow up: Response: No adverse reaction; IV Status: Completed infusion; IV Intake: db 100ml 07:50 Drug: Ondansetron IVP 4 mg IVP once; over 2 minutes Route: IVP; Site: right hand; bp 09:23 Follow up: Response: No adverse reaction db 07:50 Drug: NS 0.9% IV 1000 ml IV at 1000 ml once; to be given as a bolus over 60 minutes bp Route: IV; Rate: 1000 ml; Site: right hand; 09:23 Follow up: Response: No adverse reaction; IV Status: Completed infusion; IV Intake: db 1000ml 09:58 Drug: Keppra IV 3000 mg IV at calculated rate once Route: IV; Rate: calculated rate; bp Site: left hand; 14:15 Follow up: IV Status: Completed infusion bp 14:30 Drug: Ondansetron IVP 4 mg IVP once; over 2 minutes Route: IVP; Site: right antecubital;bp 15:25 Follow up: Response: No adverse reaction bp Medication: 06:58 VIS not applicable for this client. kd3 Intake: 07:30 IV: 100ml; Total: 100ml. db 09:23 IV: 1000ml; Total: 1100ml. db Outcome: 08:26 ER care complete, transfer ordered by . ms3 14:14 Transferred by ground EMS to [facility], [facility] [place], bp 14:14 Condition: stable 14:14 Instructed on the need for transfer, 15:45 Patient left the ED. bp Signatures: Dispatcher [employer] EDMS Cherise Rodriguez Brian, RN RN bp Jose Villaseñor DO DO ms3 Gutierrez Bustos MD MD sp3 Yisel Santillan RN RN kd3 Virginia Contreras RN RN Denise Romero RN RN [email or web address] Mabel Armendariz gm2 Regine Perla, RN RN cc6 Corrections: (The following items were deleted from the chart) 07:27 07:22 Keppra IV 1000 mg IV at calculated rate in left hand mb9 db 08:22 07:05 Reassessment: This nurse at bedside and Dr. Villaseñor. Pt appears to have nystagmus mb9 like action in eyes and blank stare for approximately 4 minutes. Pt responds to sternal rub and painful stimuli. VO for 1 g of Keppra. Airway patient, respirations even and unlabored. mb9
--- NOTE | 2025-03-19 08:27 | EDPHYS ---
Physician Documentation [facility] Name: Lori Guzman Age: 29 yrs Sex: Female : 1995 Arrival Date: 03/19/2025 Time: 06:27 Bed 6 Private MD: ED Physician Jose Villaseoñr HPI: 03/19 07:32 This 29 yrs old Female presents to ER via EMS with complaints of Seizure. ms3 07:32 29-year-old female with past medical history of fibromyalgia, anxiety, depression ms3 presents to the emergency department via [facility] after feeling as if she was going to pass out and pulling over while driving to work. Patient then slumped over. EMS noticed seizure activity and 5 mg of Versed was given. Patient denies pain. Patient endorses nausea. Historical: - Allergies: 06:55 Iodinated Contrast Media - IV Dye; kd3 - Immunization history:: Adult Immunizations up to date. - Infectious Disease History:: Denies. - Social history:: Smoking status: Reported history of juuling and/or vaping. ROS: 07:32 Constitutional: Negative for fever, and chills. Cardiovascular: Negative for chest ms3 pain, and palpitations. Respiratory: Negative for shortness of breath, cough, wheezing, and pleuritic chest pain, MS/Extremity: Negative for injury and deformity, Skin: Negative for injury, rash, and discoloration, 07:32 Abdomen/GI: Positive for nausea, 07:32 Neuro: Positive for syncope, Exam: 07:32 Constitutional: This is a well developed, well nourished patient who is awake, alert, ms3 and in no acute distress. Head/Face: Normocephalic, atraumatic. Cardiovascular: Regular rate and rhythm with a normal S1 and S2. No gallops, murmurs, or rubs. Normal PMI, no JVD. No pulse deficits. Respiratory: Lungs have equal breath sounds bilaterally, clear to auscultation and percussion. No rales, rhonchi or wheezes noted. No increased work of breathing, no retractions or nasal flaring. Abdomen/GI: Soft, non-tender, with normal bowel sounds. No distension or tympany. No guarding or rebound. No evidence of tenderness throughout. 07:32 Neuro: seizure activity, Patient not responding with fluttering of her eyes and upward eye movement., 07:40 ECG was reviewed by the Attending Physician. ms3 Vital Signs: 06:51 BP 120 / 73; Pulse 69; Resp 16; Temp 98.4; Pulse Ox 99% on R/A; Weight 99.5 kg; kd3 07:26 BP 144 / 77; Pulse 78; Resp 16; Pulse Ox 100% on R/A; mb9 08:30 BP 119 / 56; Pulse 63; Resp 16; Pulse Ox 99% on R/A; db 09:15 BP 132 / 72; Pulse 81; Resp 22; Pulse Ox 100% on R/A; db 10:00 BP 107 / 69; Pulse 61; Resp 14; Pulse Ox 97% on R/A; db 10:30 BP 104 / 68; Pulse 64; Resp 14; Pulse Ox 96% on R/A; db 11:30 BP 106 / 60; Pulse 58; Resp 14; Pulse Ox 97% on R/A; db 12:00 BP 99 / 63; Pulse 60; Resp 15; Pulse Ox 98% ; db 13:00 BP 109 / 64; Pulse 61; Resp 14; Pulse Ox 98% on R/A; db 14:00 BP 117 / 76; Pulse 72; Resp 15; Pulse Ox 99% ; db 15:00 BP 98 / 87; Pulse 72; Resp 16; Pulse Ox 98% ; db 15:24 BP 96 / 62; Pulse 73; Resp 16; Pulse Ox 99% ; bp Sharon Coma Score: 06:55 Eye Response: spontaneous(4). Motor Response: obeys commands(6). Verbal Response: kd3 oriented(5). Total: 15. MDM: 06:38 Medical Screening Exam initiated sp3 07:32 ED course: Patient currently taking Escitalopram 20 mg every morning and Aripiprazole ms3 10 mg daily. 07:46 Differential diagnosis: cardiac arrhythmia, seizure, Electrolyte abnormality. ms3 Management of patient was discussed with the following: Support Teacher: Dr Cooper- Neurology- Patient will need continuous EEG monitoring.. 09:17 Data reviewed: vital signs, nurses notes, lab test result(s), EKG, radiologic studies, ms3 and as a result, I will transfer patient. Consideration of Admission/Observation Patient transferred. I considered the following discharge prescriptions or medication management in the emergency department Medications were administered in the Emergency Department. See MAR. Independent interpretation of the following test(s) in the Emergency Department EKG: See my EKG interpretation above CT Scan: My interpretation is CT head without contrast images reviewed do not reveal ICH. Counseling: I had a detailed discussion with the patient and/or guardian regarding the historical points, exam findings, and any diagnostic results supporting the discharge/admit diagnosis, lab results, radiology results, the need to transfer to another facility, for higher level of care. ED course: Discussed case with Dr. Dye and he accepts patient to the neuro ICU at [facility]. Updated patient and her mother of acceptance.. 03/19 06:39 Order name: Basic Metabolic Panel; Complete Time: 07:37 sp3 03/19 06:39 Order name: CBC with Diff; Complete Time: 07:37 sp3 03/19 06:39 Order name: Hepatic Function; Complete Time: 07:37 sp3 03/19 06:39 Order name: Magnesium; Complete Time: 07:37 sp3 03/19 06:39 Order name: Protime (+inr); Complete Time: 07:37 sp3 03/19 06:39 Order name: Ptt, Activated; Complete Time: 07:37 sp3 03/19 06:39 Order name: Troponin High Sensitivity; Complete Time: 07:37 sp3 03/19 06:39 Order name: UDS; Complete Time: 12:27 sp3 03/19 06:39 Order name: Test, Urine; Complete Time: 09:14 sp3 03/19 07:47 Order name: Test, Serum; Complete Time: 08:25 ms3 03/19 06:39 Order name: CT Head Brain wo Cont; Complete Time: 07:37 sp3 03/19 06:39 Order name: Cardiac monitoring; Complete Time: 06:58 sp3 03/19 06:39 Order name: EKG - Nurse/Tech; Complete Time: 06:58 sp3 03/19 06:39 Order name: IV Saline Lock; Complete Time: 06:58 sp3 03/19 06:39 Order name: Labs collected and sent; Complete Time: 06:58 sp3 03/19 06:39 Order name: NPO; Complete Time: 06:58 sp3 03/19 06:39 Order name: O2 Sat Monitoring; Complete Time: 06:58 sp3 EC:40 Rate is 77 beats/min. Rhythm is regular. QRS [place] is Normal. CA interval is normal. QRS ms3 interval is normal. Clinical impression: Normal ECG. Interpreted by me. Reviewed by me. Administered Medications: 07:14 Drug: Keppra IV 1000 mg IV at calculated rate once Route: IV; Rate: calculated rate; db Site: left antecubital; 07:30 Follow up: Response: No adverse reaction; IV Status: Completed infusion; IV Intake: db 100ml 07:50 Drug: Ondansetron IVP 4 mg IVP once; over 2 minutes Route: IVP; Site: right hand; bp 09:23 Follow up: Response: No adverse reaction db 07:50 Drug: NS 0.9% IV 1000 ml IV at 1000 ml once; to be given as a bolus over 60 minutes bp Route: IV; Rate: 1000 ml; Site: right hand; 09:23 Follow up: Response: No adverse reaction; IV Status: Completed infusion; IV Intake: db 1000ml 09:58 Drug: Keppra IV 3000 mg IV at calculated rate once Route: IV; Rate: calculated rate; bp Site: left hand; 14:15 Follow up: IV Status: Completed infusion bp 14:30 Drug: Ondansetron IVP 4 mg IVP once; over 2 minutes Route: IVP; Site: right antecubital;bp 15:25 Follow up: Response: No adverse reaction bp Disposition Summary: 03/19/25 08:26 Transfer Ordered Notes: Transfer Location: [facility] ms3 Reason: Higher level of care ms3 Condition: Stable ms3 Problem: new ms3 Symptoms: are unchanged ms3 Accepting Physician: (03/19/25 15:45) bp Diagnosis - Other seizures ms3 - Elevated blood-pressure reading, without diagnosis of hypertension ms3 Forms: - Medication Reconciliation Form ms3 - SBAR form ms3 Critical care time excluding procedures: 09:18 Critical care time: Bedside Care: 35 minutes, Consultation: 5 minutes, Family ms3 Intervention: 5 minutes. Total time: 45 minutes Signatures: Dispatcher [employer] Tino Fine RN RN Jose Sarkar DO DO ms3 Gutierrez Bustos MD MD sp3 Yisel Santillan RN RN kd3 Virginia Contreras RN RN db Denise Pearce RN RN mb9 Corrections: (The following items were deleted from the chart) 06:39 06:39 BASIC METABOLIC PANEL+C.LAB.BRZ ordered. EDMS EDMS 06:39 06:39 CBC+H.LAB.BRZ ordered. EDMS EDMS 06:39 06:39 HEPATIC FUNCTION+C.LAB.BRZ ordered. EDMS EDMS 06:39 06:39 MAGNESIUM+C.LAB.BRZ ordered. EDMS EDMS 06:39 06:39 PROTIME (+INR)+COAG.LAB.BRZ ordered. EDMS EDMS 06:39 06:39 PTT, ACTIVATED+COAG.LAB.BRZ ordered. EDMS EDMS 06:39 06:39 Troponin High Sensitivity+C.LAB.BRZ ordered. EDMS EDMS 06:39 06:39 URINE DRUG SCREEN+UC.LAB.BRZ ordered. EDMS EDMS 06:39 06:39 Test, Urine+UC.LAB.BRZ ordered. EDMS EDMS 06:39 06:39 Head Brain Wo Cont+CT.RAD.BRZ ordered. EDMS EDMS 09:19 09:17 ED course: Discussed case with Dr. Dye and he accepts patient to the neuro ICU ms3 at [facility]. ms3 15:45 08:26 Dr kerr bp
[2025-03-19] MEDS ORDERED: LEVETIRACETAM IV ONE (09:30)
[2025-03-19] MEDS ORDERED: NA CHLORIDE 0.9% IV ONE (09:30)
[2025-03-19 10:01] LABS: METHAMPHETAM NEGATIVE (NEGATIVE); THC Cannibis POSITIVE (NEGATIVE)
[2025-03-19 16:22] VITALS: TEMP 98.4
[2025-03-19 16:40] VITALS: BP 96/62; O2SAT 99
== END 2025-03-19 15:45 | disposition short-term general hospital (02) ==
LOC: ER 06:27
DX: G40.89 Other seizures (principal); R55 Syncope and collapse; R03.0 Elevated blood-pressure reading, without diagnosis of hypertension; M79.7 Fibromyalgia; F41.9 Anxiety disorder, unspecified; F32.A Depression, unspecified; F17.290 Nicotine dependence, other tobacco product, uncomplicated
CPT/HCPCS: 36415; 70450; 80048; 80076; 80307; 81025; 83735; 84484; 84703; 85025; 85610; 85730; 93005; 99285; J1953